=== PATIENT | female | born 1940 | race Caucasian/White ===

== ENCOUNTER 2020-01-08 20:20 | Inpatient (IN) | payer MEDICARE, MEDICAID, SELFPAY ==
--- NOTE | ~2020-01-08 | CT_ITS ---
EXAMINATION: CT abdomen pelvis w con EXAM DATE: 01/08/2020 22:51 INDICATION: Leukocytosis, GI bleed. TECHNIQUE: Spiral CT of the abdomen and pelvis was performed following intravenous injection of 100 m L Omnipaque 350. Axial, coronal and sagittal images were reviewed. The dose-length product (DLP) fo r this examination was 943.58 mGy-cm. The exposure was tailored according to patient size (auto mA e xposure control), and iterative reconstruction (ASIR) was used as additional dose reduction technique . Correlation is made to chest CT 2009. FINDINGS: There is well-circumscribed low-density lobular right breast mass measuring about 3 cm. Thi s was not present on CT from 2010. Has this been previously worked up? The liver, spleen, adrenal gl ands and pancreas are unremarkable. There is gallstone within an otherwise unremarkable gallbladder. No evidence of obstructive biliary disease. Portal and splenic veins are patent. Kidneys enhance symmetrically. Small right nephrolithiasis. There is no hydronephrosis. The uterus is not identifie d and has likely been surgically resected. The bladder is unremarkable. There is no retroperitoneal or pelvic lymphadenopathy. There is moderate scattered arteriosclerotic disease. The appendix is not positively visualized. There is no pericecal inflammatory change to suggest appe ndicitis. There is mild sigmoid colonic diverticulosis. There is no adjacent inflammatory change to suggest diverticulitis. There is a gastrostomy tube in position. There is expected amount of colonic stool. No free intraperitoneal gas. The heart is normal in size. There are no pericardial or pl eural effusions. The lung bases are unremarkable. There are no osteoblastic or osteolytic lesions i dentified. IMPRESSION: 1. Indeterminate lobular right breast mass. This may be benign given the low density and does not ap pear to be enhancing. Differential diagnosis includes hematoma, seroma, fibroadenoma, breast cancer. 2. Right nephrolithiasis. 3. Cholelithiasis. 4. Gastrostomy in position. 5. Colonic diverticulosis. 6. No acute abdominal findings. Reviewed, dictated and finalized at location A. AGING SALES CONSULTANT IMPRESSION: 1. Indeterminate lobular right breast mass. This may be benign given the low d ensity and does not appear to be enhancing. Differential diagnosis includes hem atoma, seroma, fibroadenoma, breast cancer. 2. Right nephrolithiasis. 3. Cholelithiasis. 4. Gastrostomy in position. 5. Colonic diverticulosis. 6. No acute abdominal findings.
--- NOTE | 2020-01-08 20:17 | PC.NURSE ---
Unable to obtain IV access or draw blood for labs after multiple RN attempts. Attempting with ultrasound at this time.
[2020-01-08 20:20] VITALS: BP 134/63; PULSE 99; RESP 19; TEMP 36.5; O2SAT 95
[2020-01-08 20:34] VITALS: RESP 19; O2SAT 95
--- NOTE | 2020-01-08 20:37 | ECG_ITS ---
Measurements Intervals [place] Rate: 100 P: 48 ID: 132 QRS: 28 QRSD: 84 T: 21 QT: 359 QTc: 463 Interpretive Statements SINUS TACHYCARDIA BORDERLINE ST-T WAVE ABNORMALITY- ANT/INF LEADS BASELINE ARTIFACT- I, III, V2 BORDERLINE ECG Electronically Signed On 01-09-2020 7:59:17 APARTMENT MAINTENANCE TECHNICIAN by Alex Bullock D.O.
--- NOTE | 2020-01-08 21:07 | PC.NURSE ---
Unable to obtain IV access or draw blood for labs after multiple RN attempts. Attempting with ultrasound at this time.
[2020-01-08 21:31] VITALS: BP 134/56; PULSE 100; RESP 19; O2SAT 97
[2020-01-08 21:58] LABS: Basophils Absolute Auto 0.1 K/mm3 (0.0-0.1); Basophils Percent Auto 0.3 % (0.2-1.2); Eosinophils Absolute Auto 0.5 K/mm3 (0-0.3); Eosinophils Percent Auto 3.2 % (0-4.4); Immature Granulocyte Absolute 0.12 K/mm3 (0.00-0.031); Immature Granulocyte Percent A 0.8 % (0-0.5); Lymphocytes Absolute Auto 2.28 K/mm3 (0.9-3.2); Lymphocytes Percent Auto 14.5 % (18.3-44.2); Mean Corpuscular HGB Conc 26.9 g/dl (32-36); Mean Corpuscular Hemoglobin 27.9 pg (26-34); Mean Corpuscular Volume 103.6 fl (80-100); Mean Platelet Volume 11.3 fl (7.4-10.4); Monocytes Absolute Auto 0.8 K/mm3 (0.1-0.6); Monocytes Percent Auto 4.8 % (2.6-8.5); Neutrophils Absolute Auto 12.1 K/mm3 (1.3-6.7); Neutrophils Percent Auto 76.4 % (45.5-73.1); Nucleated Red Blood Cells Absolute Auto 0.1 K/mm3 (0.0-0.012); Nucleated Red Blood Cells Perc 0.4 % (0.0-0.2); Platelet Count Result 382 k/mm3 (150-375); Red Blood Count 2.51 M/mm3 (4.2-5.4); Red Cell Distribution Width 14.9 % (11.5-14.5); White Blood Count 15.8 K/mm3 (4.5-10.0)
--- NOTE | 2020-01-08 22:04 | ED.RECABL ---
HPI - Recheck/Abnormal Lab/Rx General Chief Complaint: Recheck/Abnormal Lab/Rx Stated Complaint: abn labs Time Seen by Provider: 01/08/20 22:02 Source: family and RN notes reviewed Limitations: clinical condition History of Present Illness HPI narrative: Pt is an 79 y/o female who presents to the ED, via EMS from [facility], with c/o low hemoglobin that began yesterday. Pt's family was at bedside and provided the information. The [facility] called the pt's family stating her hemoglobin was lower today and yesterday. Pt's family states the NH stated the pt had blood in her G-tube yesterday, but there was no blood today. She states the [facility] staff saw the blood when they tried to flush out her G-tube. Pt's family denies a similar episode. She notes the pt's mental status changes daily and is not consistent. She notes the pt is not coherent throughout the day. She states that the pt's RENAL NURSE shunt will occasionally block up. Pt's family states that the pt goes to [place] [facility] whenever the shunt needs to be fixed. Pt's family denies the pt having melena. Pt's family denies the pt being on any anticoagulant. Pt is taking Lasix. MD complaint: abnormal lab Associated symptoms: none (limited due to pt's clinical condition) Related Data Home Medications Medication Instructions Recorded Confirmed aspirin 81 mg PO DAILY 01/08/20 atorvastatin 80 mg PO DAILY 01/08/20 escitalopram oxalate 10 mg PO DAILY 01/08/20 furosemide 40 mg PO DAILY 01/08/20 Allergies Allergy/AdvReac Type Severity Reaction Status Date / Time No Known Allergies Allergy Verified 01/08/20 23:31 Review of Systems Review of Systems: ROS unobtainable: other (limited due to pt's clinical condition) Gastrointestinal: Gastrointestinal: Denies melena PMFSH Past Medical History Medical History (Updated 01/08/20 @ 23:52 by Dominic Zavala MD) Abnormal gag reflex Partial paralysis Aspiration pneumonia Bilateral artificial lens implant Bilateral cataracts Brain aneurysm With RENAL NURSE shunt in place Brain bleed CVA (cerebral vascular accident) Dementia Depression Gastrostomy tube in place HLD (hyperlipidemia) HTN (hypertension) Incontinence Skin lesion lt nose Subarachnoid hemorrhage Subdural hematoma TBI (traumatic brain injury) Surgical History Surgical History (Updated 01/08/20 @ 22:16 by Victoria Grace) Angle recession of both eyes History of appendectomy 195 History of bilateral cataract extraction 2006 History of hysterectomy History of thyroidectomy History of tonsillectomy RENAL NURSE (ventriculoperitoneal) shunt status Social History Social History (Updated 09/28/19 @ 22:57 by Sayda Coleman) Smoking status: Former smoker Additional smoking assessment comments: Quite smoking years ago Alcohol intake: never Gender identity (if verbalized by the patient): Female Exam Const: General: no acute distress and ill appearing chronically Nutritional Appearance: obese HENMT: Head: normal to inspection Eyes: Conjunctivae: conjunctivae normal Pupils: Equal, round and reactive pupils present EOM: EOMs intact bilaterally Resp: Effort & Inspection: normal respiratory effort Auscultation: clear to auscultation bilaterally Cardio: Rate: regular rate Rhythm: regular rhythm GI: Rectal Exam: Abnormal stool present black stool and heme positive stool Other: G-tube in place. flushing tube produces minimal coffee ground material. Skin: General skin exam: pallor Neuro: Other: No answering orientation questions or following commands Extrem: General: normal to inspection Course Vital Signs Vital signs: Vital Signs Temperature 36.5 C 01/08/20 20:20 Pulse Rate 99 01/08/20 20:20 Respiratory Rate 19 01/08/20 20:20 Blood Pressure 134/63 01/08/20 20:20 Pulse Oximetry 95 01/08/20 20:20 Temperature 36.5 C 01/08/20 20:20 Pulse Rate 101 H 01/08/20 23:16 Respiratory Rate 19 01/08/20 23:16 Blood Pressure 123/53 L 03
[2020-01-08 22:07] LABS: INR 1.1; Prothrombin Time 13.7 Seconds (11.1-14.7)
[2020-01-08 22:08] LABS: Partial Thromboplastin Time 25.4 SECONDS (22.3-36.8)
[2020-01-08 22:12] LABS: Alanine Aminotransferase 25 U/L (4-35); Alkaline Phosphatase 130 U/L (38-126); Aspartate Amino Transferase 30 U/L (14-36); Bilirubin,Total 0.7 mg/dL (0.2-1.3); Blood Urea Nitrogen 41 mg/dL (7-17); Calcium 9.1 mg/dL (8.4-10.2); Carbon Dioxide 29 mmol/L (22-30); Chloride 117 mmol/L (98-107); Estimated CRCL calculation 69 ml/min; Estimated Glomerular Filt Rate > 60; Glucose 148 mg/dL (65-105); Potassium 3.6 mmol/L (3.4-5.0); Sodium 153 mmol/L (137-145)
[2020-01-08 22:22] LABS: Hypochromasia 2+ (NORMAL)
[2020-01-08 22:23] LABS: Anisocytosis 2+ (NORMAL)
[2020-01-08 22:29] LABS: Lactic Acid 3.2 mmol/L (0.7-2.1)
[2020-01-08] MEDS: PANTOPRAZOLE SODIUM IV 40 MG VIAL 80 MG IV PUSH (22:55)
[2020-01-08] MEDS: SODIUM CHLORIDE 0.9% IV 1,000 ML 999 ML IV CONT (22:58)
[2020-01-08 23:16] VITALS: BP 123/53; PULSE 101; RESP 19; O2SAT 95
[2020-01-08 23:46] VITALS: BP 103/44; PULSE 102; RESP 18; O2SAT 95
[2020-01-09] VITALS (21 sets, daily range): BP systolic 91–152; BP diastolic 39–71; PULSE 74–99; RESP 14–25; TEMP 35.7–36.8; O2SAT 92–100; BMI 28.2
[2020-01-09 00:17] LABS: Add Urine Microscopic? YES; Appearance Urine Clear (Clear); Bacteria Urine 1+ /hpf; Bilirubin Urine Negative (Negative); Blood Urine Negative (Negative); Color Urine Yellow (Yellow); Glucose Urine UA 2+ mg/dL (Negative); Ketones Urine Negative (Negative); Leukocyte Esterase Ur Negative LEU/UL (Negative); Mucus Urine Rare /lpf; Nitrate Urine Positive (Negative); Protein Urine Negative (Negative); RBC Urine 21-50 /hpf (0-2); Urobilinogen Urine Negative mg/dL (<2.0); WBC Urine 0-3 /hpf
[2020-01-09 00:18] LABS: Specific Grav Ur 1.057 (1.001-1.035)
--- NOTE | 2020-01-09 00:59 | PC.NURSE ---
NS hung with blood products.
--- NOTE | 2020-01-09 01:41 | ADMGEN ---
This patient, Citlaly Chamberlain, was admitted to [facility] Surg Room 303-01 at 0125. Patient is non-verbal. Patient/family oriented to hospital policies and general routines including ID bracelet, bed and alarms, visiting hours, pain management, procedures, bathroom and other care routines, personal items, smoking policy, room service/diet, and visiting hours. Valuables list has been completed. Information on how to activate the Rapid Response Team has been discussed. Patient/Family are encouraged to report perceived risks to care and to ask questions if they do not understand what they are told or what they should do.
[2020-01-09] MEDS: LACTATED RINGERS 1,000 ML 125 ML IV CONT ×2 (05:57→21:25)
--- NOTE | 2020-01-09 08:15 | WPDGICN ---
Assessment and Plan Additional Plan this is an 79-year-old white female patient mass to see at the request of the emergency room. [facility] was noted to have blood in her gastrostomy tube 2 days ago. She was found to have a very low hemoglobin yesterday and sent to the emergency room. In the emergency room black melenic stools that were Hemoccult positive were identified. Patient has a history of intracerebral bleeding. She also has a history of dementia is unable to give additional history. Past medical history is significant for intracerebral bleeding. She has of MANAGER PLACEMENT shunt. For many years she has had a gastrostomy tube for nutritional support this has been replaced frequently. Endoscopy for replacement was accomplished 1 year ago. Past history is significant for hypertension, dementia, brain aneurysm. History of CVA secondary to intracerebral bleeding. She has a previous gastrostomy tube, previous appendectomy, hysterectomy, thyroidectomy, and MANAGER PLACEMENT shunt. Medications include Lasix, escitalopram, atorvastatin, aspirin, and vitamins, no known drug allergies. Physical exam reveals her to be comfortable at rest. She is anicteric. Evidence of EP shunt is present. Lungs are clear to auscultation and percussion. Heart is without murmur or extra sounds. Abdominal exam bowel sounds are present soft nontender there is a G-tube in the left upper quadrant. Currently it lavage was clear. Extremities are without clubbing cyanosis or edema. in the emergency room stool was found to be Hemoccult positive. Laboratory tests reveal hemoglobin 7.0, hematocrit 26, MCV 103. Protime of 13.7, INR 1.1. BUN of 41, creatinine 0.6, LFTs are unremarkable. Urinalysis with 21-50 red cells per high-powered field. Impression 1. Upper GI bleeding. This appears manifested by a G-tube return. And also black melenic heme-positive stools. I have discussed possibilities with patient's daughter who is power POA. She wishes and endoscopy pre performed to define source of bleeding and expected outcomes. 2. History of hemorrhagic CVA. Distant history of cerebral aneurysm status post cerebral bleeding. 3. He had MANAGER PLACEMENT shunt. 4. Dementia. 5. Hematuria. Etiology for this remains unclear. UTI may need to be excluded. Plan is for IV proton pump inhibitors. Follow hemoglobin and transfuse if necessary. An EGD will be performed. GI Consult Note Consult date/time: 01/09/20 08:15 HPI: Citlaly Chamberlain is a 79 year old female [facility] Past Medical History Medical History (Updated 01/08/20 @ 23:52 by Dominic Zavala MD) Abnormal gag reflex Partial paralysis Aspiration pneumonia Bilateral artificial lens implant Bilateral cataracts Brain aneurysm With MANAGER PLACEMENT shunt in place Brain bleed CVA (cerebral vascular accident) Dementia Depression Gastrostomy tube in place HLD (hyperlipidemia) HTN (hypertension) Incontinence Skin lesion lt nose Subarachnoid hemorrhage Subdural hematoma TBI (traumatic brain injury) Surgical History Surgical History (Updated 01/08/20 @ 22:16 by Victoria Grace) Angle recession of both eyes History of appendectomy 1953 History of bilateral cataract extraction 2006 History of hysterectomy History of thyroidectomy History of tonsillectomy MANAGER PLACEMENT (ventriculoperitoneal) shunt status Social History Social History (Updated 09/28/19 @ 22:57 by Sayda Coleman) Smoking status: Former smoker Additional smoking assessment comments: Quite smoking years ago Alcohol intake: never Substance use: unknown Gender identity (if verbalized by the patient): Female Spiritual care concerns: No Agree to blood products: Yes Meds Home Medications and Allergies Home Medications Medication Instructions Recorded Confirmed Type aspirin 81 mg FEEDING TUBE DAILY 01/08/20 01/09/20 History atorvastatin 80 mg FEEDING TUBE DAILY 01/08/20 01/09/20 History esci
[2020-01-09] MEDS: PANTOPRAZOLE SODIUM IV 40 MG VIAL IV PUSH (08:51)
--- NOTE | 2020-01-09 09:05 | WPDANESEPPF ---
Anes - Initial Pre Proc Eval Procedure: Operation Date: 01/09/20 10:30 Proposed Procedures p Esophagogastroduodenoscopy - Pietro Osman MD Date/Time: 01/09/20 09:05 Pre Op Diagnosis: upper gi bleed anemia Patient Data Age: 79 Gender: F Height: 1.7 m Weight: 81.7 kg Last Vital Signs Temp 35.7 C L 01/09/20 06:00 Pulse 81 01/09/20 06:00 Resp 18 01/09/20 06:00 BP 151/64 H 01/09/20 06:00 Pulse Ox 98 01/09/20 06:00 Allergies Allergy/AdvReac Type Severity Reaction Status Date / Time No Known Allergies Allergy Verified 01/08/20 23:31 Home Medications Medication Instructions Recorded Confirmed Type aspirin 81 mg FEEDING TUBE DAILY 01/08/20 01/09/20 History atorvastatin 80 mg FEEDING TUBE DAILY 01/08/20 01/09/20 History escitalopram oxalate 10 mg FEEDING TUBE DAILY 01/08/20 01/09/20 History furosemide 40 mg FEEDING TUBE DAILY 01/08/20 01/09/20 History multivitamin with minerals 15 ml FEEDING TUBE DAILY 01/09/20 01/09/20 History Laboratory Tests 01/08/20 01/08/20 01/08/20 21:51 21:52 21:52 WBC 15.8 K/mm3 H K/mm3 (4.5-10.0) RBC 2.51 M/mm3 L M/mm3 (4.2-5.4) Hgb 7.0 g/dL L g/dL (12.0-15.0) Hct 26.0 % L % (37.0-47.0) MCV 103.6 fl H fl (80-100) MCH 27.9 pg pg (26-34) MCHC 26.9 g/dl L g/dl (32-36) RDW 14.9 % H % (11.5-14.5) Plt Count 382 k/mm3 H k/mm3 (150-375) MPV 11.3 fl H fl (7.4-10.4) Immature Gran % (Auto) 0.8 % H % (0-0.5) Neut % (Auto) 76.4 % H % (45.5-73.1) Lymph % (Auto) 14.5 % L % (18.3-44.2) [place] % (Auto) 4.8 % % (2.6-8.5) Eos % (Auto) 3.2 % % (0-4.4) Baso % (Auto) 0.3 % % (0.2-1.2) Lymph # (Auto) 2.28 K/mm3 K/mm3 (0.9-3.2) [place] # (Auto) 0.8 K/mm3 H K/mm3 (0.1-0.6) Eos # (Auto) 0.5 K/mm3 H K/mm3 (0-0.3) Baso # (Auto) 0.1 K/mm3 K/mm3 (0.0-0.1) Abs Immat Gran (auto) 0.12 K/mm3 H K/mm3 (0.00-0.031) Absolute Neuts (auto) 12.1 K/mm3 H K/mm3 (1.3-6.7) Absolute Nucleated RBC 0.1 K/mm3 H K/mm3 (0.0-0.012) Nucleated RBC % 0.4 % H % (0.0-0.2) Platelet Estimate Slightly increased (Adequate) Hypochromasia 2+ (NORMAL) Anisocytosis 2+ (NORMAL) PT 13.7 Seconds Seconds (11.1-14.7) INR 1.1 APTT 25.4 SECONDS SECONDS (22.3-36.8) Sodium 153 mmol/L H mmol/L (137-145) Potassium 3.6 mmol/L mmol/L (3.4-5.0) Chloride 117 mmol/L H mmol/L (98-107) Carbon Dioxide 29 mmol/L mmol/L (22-30) BUN 41 mg/dL H mg/dL (7-17) Creatinine 0.60 mg/dL L mg/dL (0.7-1.0) Estim Creat Clear Calc 69 ml/min ml/min Estimated GFR > 60 (59 - ) Glucose 148 mg/dL H mg/dL (65-105) Lactic Acid Calcium 9.1 mg/dL mg/dL (8.4-10.2) Total Bilirubin 0.7 mg/dL mg/dL (0.2-1.3) AST 30 U/L U/L (14-36) ALT 25 U/L U/L (4-35) Alkaline Phosphatase 130 U/L H U/L (38-126) Total Protein 7.0 g/dL g/dL (6.3-8.2) Albumin 4.0 g/dL g/dL (3.5-5.1) Urine Color Urine Appearance Urine pH Ur Specific [place] Urine Protein Urine Glucose (UA) Urine Ketones Ur Blood (Man) Urine Nitrate Urine Bilirubin Urine Urobilinogen Leukocyte Esterase Rfl Urine RBC Urine WBC Urine Bacteria Urine Mucus Blood Type Antibody Screen Crossmatch 01/08/20 01/08/20 01/08/20 21:52 22:13 23:36 WBC RBC Hgb Hct MCV MCH MCHC
--- NOTE | 2020-01-09 09:39 | PM.IMHP ---
H&P: HPI History of Present Illness Chief complaint: upper gi bleed anemia Narrative: Date of service: 01/09/2020 Citlaly Chamberlain is a 79 year old female with a past medical history significant for brain aneurysm s/p MANUFACTURING ENGINEERING TECHNOLOGIST shunt in 1998, subdural hematoma, TBI, CVA, dementia, HTN, HLD, and G-tube in place who presented to the emergency department on 01/08/2020 from [facility] via EMS after staff at [facility] called the patients family due to low hemoglobin and an episode of blood in her G-tube on 01/07/2020. The patient is non-verbal. I spoke with her daughter, Lucille, on the phone who tells me the patients mental status can fluctuate greatly from day to day. Her mother is non-ambulatory, but is able to transfer from bed to wheelchair with staff assistance. She reports her mom has had a G-tube since 2016 due to dysphagia following hemorrhagic stroke. She takes nothing by mouth. She states that the patient will occasionally mumble although is difficult to understand. She usually is able to indicate if she is experiencing pain. She reports the patient does not see a neurologist regularly, but if she experiences problems with her MANUFACTURING ENGINEERING TECHNOLOGIST shunt, they seek care at [facility]. She does not believe there are any current issues with the shunt. She is incontinent of stool and urine. At time of my visit, the patient was being prepared for transfer to undergo EGD with Dr. Osman. The patient was admitted to the hospitalist service on 01/08/2020 and supervising physician is Dr. Sandra. Review of Systems Review of Systems: ROS unobtainable: unobtainable due to mental condition [facility] Past Medical History Medical History Abnormal gag reflex Partial paralysis Aspiration pneumonia Bilateral artificial lens implant Bilateral cataracts Brain aneurysm With MANUFACTURING ENGINEERING TECHNOLOGIST shunt in place Brain bleed CVA (cerebral vascular accident) Dementia Depression Gastrostomy tube in place HLD (hyperlipidemia) HTN (hypertension) Incontinence Skin lesion lt nose Subarachnoid hemorrhage Subdural hematoma TBI (traumatic brain injury) Surgical History Surgical History (Updated 01/09/20 @ 14:08 by Corry Uribe PA-C) Angle recession of both eyes History of appendectomy 1953 History of bilateral cataract extraction 2006 History of hysterectomy History of tonsillectomy MANUFACTURING ENGINEERING TECHNOLOGIST (ventriculoperitoneal) shunt status Family History Family History (Updated 01/09/20 @ 14:09 by Corry Uribe PA-C) Mother Dementia Father No problems noted. Social History Social History (Updated 01/09/20 @ 14:10 by Corry Uribe PA-C) Social History: Ms. Chamberlain is a resident of [facility]. Her daughter Lucille is her surrogate decision maker. She is a DNR. Smoking status: Former smoker Tobacco type: cigarettes Additional smoking assessment comments: Quit smoking years ago Alcohol intake: never Substance use: unknown Living arrangements: residential Gender identity (if verbalized by the patient): Female Spiritual care concerns: No Agree to blood products: Yes Meds Home Medications and Allergies Home Medications Medication Instructions Recorded Confirmed Type aspirin 81 mg FEEDING TUBE DAILY 01/08/20 01/09/20 History atorvastatin 80 mg FEEDING TUBE DAILY 01/08/20 01/09/20 History escitalopram oxalate 10 mg FEEDING TUBE DAILY 01/08/20 01/09/20 History furosemide 40 mg FEEDING TUBE DAILY 01/08/20 01/09/20 History multivitamin with minerals 15 ml FEEDING TUBE DAILY 01/09/20 01/09/20 History Allergies Allergy/AdvReac Type Severity Reaction Status Date / Time No Known Allergies Allergy Verified 01/08/20 23:31 Vital Signs Vital Signs - 24 hr 01/08/20 20:20 01/08/20 20:34 01/08/20 21:31 Temperature 97.7 F Pulse Rate 99 100 Respiratory Rate 19 19 19 Blood Pressure 134/63 134/56 L Pulse Oximetry 95 95 97 01/08/20 23:16 01/08/20 23:46 01/08
[2020-01-09 09:55] LABS: Blood Urea Nitrogen 35 mg/dL (7-17); Calcium 8.3 mg/dL (8.4-10.2); Carbon Dioxide 23 mmol/L (22-30); Chloride 122 mmol/L (98-107); Estimated CRCL calculation 69 ml/min; Estimated Glomerular Filt Rate > 60; Glucose 137 mg/dL (65-105); Sodium 151 mmol/L (137-145)
[2020-01-09] MEDS: LACTATED RINGERS 1,000 ML 150 ML IV CONT (09:55)
--- NOTE | 2020-01-09 09:56 | PC.NURSE ---
To [facility] lab @ [id number]
[2020-01-09 10:21] LABS: Potassium 4.1 mmol/L (3.4-5.0)
[2020-01-09 12:41] LABS: Basophils Percent Auto 0.3 % (0.2-1.2); Eosinophils Absolute Auto 0.4 K/mm3 (0-0.3); Eosinophils Percent Auto 3.5 % (0-4.4); Hemoglobin 9.5 g/dL (12.0-15.0); Immature Granulocyte Absolute 0.06 K/mm3 (0.00-0.031); Immature Granulocyte Percent A 0.5 % (0-0.5); Lymphocytes Absolute Auto 2.32 K/mm3 (0.9-3.2); Lymphocytes Percent Auto 19.5 % (18.3-44.2); Mean Corpuscular HGB Conc 29.7 g/dl (32-36); Mean Corpuscular Hemoglobin 27.7 pg (26-34); Mean Corpuscular Volume 93.3 fl (80-100); Mean Platelet Volume 11.1 fl (7.4-10.4); Monocytes Absolute Auto 0.6 K/mm3 (0.1-0.6); Monocytes Percent Auto 5.2 % (2.6-8.5); Neutrophils Absolute Auto 8.4 K/mm3 (1.3-6.7); Nucleated Red Blood Cells Perc 0.3 % (0.0-0.2); Platelet Count Result 281 k/mm3 (150-375); Red Blood Count 3.43 M/mm3 (4.2-5.4); Red Cell Distribution Width 18.6 % (11.5-14.5); White Blood Count 11.9 K/mm3 (4.5-10.0)
[2020-01-09 13:07] LABS: Anisocytosis 1+ (NORMAL); Platelet Estimate Adequate (Adequate)
--- NOTE | 2020-01-09 14:08 | PC.NURSE ---
Returned from GI lab @[id number]
--- NOTE | 2020-01-09 14:28 | PCNSR ---
On 01/09/20, the student, Janice George, provided care and completed [facility] documentation on this patient. I have reviewed the student's documentation and agree with the findings.
[2020-01-09 17:25] LABS: Lactic Acid 2.2 mmol/L (0.7-2.1)
[2020-01-09 17:28] LABS: Blood Urea Nitrogen 42 mg/dL (7-17); Calcium 8.3 mg/dL (8.4-10.2); Carbon Dioxide 22 mmol/L (22-30); Chloride 124 mmol/L (98-107); Estimated CRCL calculation 81 ml/min; Estimated Glomerular Filt Rate > 60; Glucose 148 mg/dL (65-105); Potassium 4.3 mmol/L (3.4-5.0); Sodium 150 mmol/L (137-145)
[2020-01-10] MEDS: LACTATED RINGERS 1,000 ML 125 ML IV CONT (05:34)
[2020-01-10 06:00] VITALS: BP 146/67; PULSE 90; RESP 20; TEMP 37.1; O2SAT 94
[2020-01-10 06:33] LABS: Basophils Percent Auto 0.2 % (0.2-1.2); Eosinophils Absolute Auto 0.4 K/mm3 (0-0.3); Eosinophils Percent Auto 3.3 % (0-4.4); Hematocrit 28.2 % (37.0-47.0); Hemoglobin 8.2 g/dL (12.0-15.0); Immature Granulocyte Absolute 0.06 K/mm3 (0.00-0.031); Immature Granulocyte Percent A 0.5 % (0-0.5); Immature Platelet Fraction Pct 4.7 % (0.9-11.2); Lymphocytes Absolute Auto 1.85 K/mm3 (0.9-3.2); Lymphocytes Percent Auto 16.9 % (18.3-44.2); Mean Corpuscular HGB Conc 29.1 g/dl (32-36); Mean Corpuscular Hemoglobin 27.2 pg (26-34); Mean Corpuscular Volume 93.7 fl (80-100); Mean Platelet Volume 11.7 fl (7.4-10.4); Monocytes Absolute Auto 0.6 K/mm3 (0.1-0.6); Monocytes Percent Auto 5.8 % (2.6-8.5); Neutrophils Percent Auto 73.3 % (45.5-73.1); Platelet Count Result 213 k/mm3 (150-375); Red Blood Count 3.01 M/mm3 (4.2-5.4)
--- NOTE | 2020-01-10 07:44 | WPDGIPROGNO ---
Progress Note: A&P Additional Plan Patient unchanged this morning. Offers no complaints. Physical exam abdomen benign. Soft and nontender. G tube in left upper quadrant. Functioning well. Appears well healed. Impression 1. Gastric ulcer. Identified by endoscopy yesterday. No longer bleeding. But this was the source of recent upper GI blood loss. 2. PEG tube. Patient requires tube feedings for nutritional support these will be restarted. 3. History of CVA. Hemorrhagic stroke. With history of AVM. History of PHARMACY INFORMATICS SPECIALIST shunt. 4. Dementia. Plan is for tube feedings to resume 60cc of Jevity continuously. Proton pump inhibitor will be given via the G-tube. Lansoprazole 30cc p.o. daily. Patient should avoid nonsteroidal anti-inflammatory agents. Discharge to halfway today anticipated. Subjective Date/time seen: 01/10/20 07:44 Objective Data Vital Signs Vital Signs: Vital Signs - 24 hr 01/09/20 09:56 01/09/20 10:29 01/09/20 10:39 Temperature 36.4 C Pulse Rate 86 80 74 Respiratory Rate 16 18 18 Blood Pressure 143/59 H 118/59 L 125/67 Pulse Oximetry 95 95 95 01/09/20 10:49 01/09/20 11:31 01/09/20 14:00 Temperature 36.7 C 36.7 C Pulse Rate 80 85 85 Respiratory Rate 18 18 18 Blood Pressure 137/70 142/64 H 142/64 H Pulse Oximetry 95 95 99 01/09/20 22:00 01/10/20 06:00 Temperature 36.8 C 37.1 C Pulse Rate 94 90 Respiratory Rate 20 20 Blood Pressure 129/62 146/67 H Pulse Oximetry 95 94 Intake/Output Intake/Output: Intake & Output 01/07/20 01/08/20 01/09/20 01/10/20 23:59 23:59 23:59 23:59 Intake Total 1000 1800 1787 Output Total 150 Balance 850 1800 1787 Meds/Results Medications: Active Medications Generic Name Dose Route Start Last Admin Trade Name Freq PRN Reason Stop Dose Admin Lactated Ringer's 1,000 mls @ 75 mls/hr 01/08/20 23:55 01/10/20 05:34 Lr - Lactated Ringers Iv IV CONT 125 mls/hr .[id number] VISHAL Administration Lansoprazole 30 mg 01/10/20 09:00 Prevacid Susp [facility] [facility] Results: ITS Impressions Abdomen/Pelvis CT 01/08/20 22:54 IMPRESSION: 1. Indeterminate lobular right breast mass. This may be benign given the low density and does not appear to be enhancing. Differential diagnosis includes hematoma, seroma, fibroadenoma, breast cancer. 2. Right nephrolithiasis. 3. Cholelithiasis. 4. Gastrostomy in position. 5. Colonic diverticulosis. 6. No acute abdominal findings. Labs Labs: Laboratory Results - last 24 hr 01/09/20 01/09/20 01/09/20 09:27 12:29 17:07 WBC 11.9 H RBC 3.43 L Hgb 9.5 L Hct 32.0 L MCV 93.3 D MCH 27.7 MCHC 29.7 L RDW 18.6 H Plt Count 281 MPV 11.1 H Immature Gran % (Auto) 0.5 Neut % (Auto) 71.0 Lymph % (Auto) 19.5 [place] % (Auto) 5.2 Eos % (Auto) 3.5 Baso % (Auto) 0.3 Lymph # (Auto) 2.32 [place] # (Auto) 0.6 Eos # (Auto) 0.4 H Baso # (Auto) 0.0 Abs Immat Gran (auto) 0.06 H Absolute Neuts (auto) 8.4 H Absolute Nucleated RBC 0.0 Nucleated RBC % 0.3 H Platelet Estimate Adequate % Immature Plt Fraction Anisocytosis 1+ Sodium 151 H Potassium 4.1 Chloride 122 H Carbon Dioxide 23 BUN 35 H Creatinine 0.60 L Estim Creat Clear Calc 69 Estimated GFR > 60 Glucose 137 H Lactic Acid 2.2 H Calcium 8.3 L 01/09/20 01/10/20 17:07 06:04 WBC 11.0 H RBC 3.01 L Hgb 8.2 L Hct 28.2 L MCV 93.7 MCH 27.2 MCHC 29.1 L RDW 18.0 H Plt Count 213 MPV 11.7 H Immature Gran % (Auto) 0.5 Neut % (Auto) 73.3 H Lymph % (Auto) 16.9 L [place] % (Auto) 5.8 Eos % (Auto) 3.3 Baso % (Auto) 0.2 Lymph # (Auto) 1.85 [place] # (Auto) 0.6 Eos # (Auto) 0.4 H Baso # (Auto) 0.0 Abs Immat Gran (auto) 0.06 H Absolute Neuts (auto) 8.0 H Absolute Nucleated RBC 0.0 Nucleated RBC % 0.0 Platelet Estimate % Immature Plt Fraction 4.7 Anisocytosis
--- NOTE | 2020-01-10 08:24 | WPDANESPN ---
Anes - Prog Note Post-Op Date/Time: 01/10/20 08:24 Cardiovascular status: normal Respiratory status: normal Airway patency: baseline Mental status: baseline Post-Op hydration status: normal Vital Signs: Last Vital Signs Temp 37.1 C 01/10/20 06:00 Pulse 90 01/10/20 06:00 Resp 20 01/10/20 06:00 BP 146/67 H 01/10/20 06:00 Pulse Ox 94 01/10/20 06:00 I/O: Intake & Output 01/09/20 01/10/20 01/10/20 23:59 07:59 15:59 Intake Total 1000 1787 Balance 1000 1787 Laboratory Tests 01/10/20 06:04 01/09/20 01/09/20 01/09/20 09:27 12:29 17:07 WBC 11.9 H RBC 3.43 L Hgb 9.5 L Hct 32.0 L MCV 93.3 D MCH 27.7 MCHC 29.7 L RDW 18.6 H Plt Count 281 MPV 11.1 H Immature Gran % (Auto) 0.5 Neut % (Auto) 71.0 Lymph % (Auto) 19.5 Garrett % (Auto) 5.2 Eos % (Auto) 3.5 Baso % (Auto) 0.3 Lymph # (Auto) 2.32 Garrett # (Auto) 0.6 Eos # (Auto) 0.4 H Baso # (Auto) 0.0 Abs Immat Gran (auto) 0.06 H Absolute Neuts (auto) 8.4 H Absolute Nucleated RBC 0.0 Nucleated RBC % 0.3 H Platelet Estimate Adequate % Immature Plt Fraction Anisocytosis 1+ Sodium 151 H Potassium 4.1 Chloride 122 H Carbon Dioxide 23 BUN 35 H Creatinine 0.60 L Estim Creat Clear Calc 69 Estimated GFR > 60 Glucose 137 H Lactic Acid 2.2 H Calcium 8.3 L Total Bilirubin AST ALT Alkaline Phosphatase Total Protein Albumin 01/09/20 01/10/20 01/10/20 17:07 06:04 06:04 WBC 11.0 H RBC 3.01 L Hgb 8.2 L Hct 28.2 L MCV 93.7 MCH 27.2 MCHC 29.1 L RDW 18.0 H Plt Count 213 MPV 11.7 H Immature Gran % (Auto) 0.5 Neut % (Auto) 73.3 H Lymph % (Auto) 16.9 L Garrett % (Auto) 5.8 Eos % (Auto) 3.3 Baso % (Auto) 0.2 Lymph # (Auto) 1.85 Garrett # (Auto) 0.6 Eos # (Auto) 0.4 H Baso # (Auto) 0.0 Abs Immat Gran (auto) 0.06 H Absolute Neuts (auto) 8.0 H Absolute Nucleated RBC 0.0 Nucleated RBC % 0.0 Platelet Estimate % Immature Plt Fraction 4.7 Anisocytosis Sodium 150 H Pending Potassium 4.3 Pending Chloride 124 H Pending Carbon Dioxide 22 Pending BUN 42 H Pending Creatinine 0.50 L Pending Estim Creat Clear Calc 81 Pending Estimated GFR > 60 Pending Glucose 148 H Pending Lactic Acid Calcium 8.3 L Pending Total Bilirubin Pending AST Pending ALT Pending Alkaline Phosphatase Pending Total Protein Pending Albumin Pending Post-procedural complaints: none Patient Feedback: Patient satisfied with anesthetic care.
[2020-01-10 09:04] LABS: Alanine Aminotransferase 21 U/L (4-35); Albumin Level 3.1 g/dL (3.5-5.1); Alkaline Phosphatase 101 U/L (38-126); Aspartate Amino Transferase 31 U/L (14-36); Bilirubin,Total 0.5 mg/dL (0.2-1.3); Blood Urea Nitrogen 29 mg/dL (7-17); Calcium 8.3 mg/dL (8.4-10.2); Carbon Dioxide 25 mmol/L (22-30); Chloride 121 mmol/L (98-107); Estimated CRCL calculation 81 ml/min; Estimated Glomerular Filt Rate > 60; Glucose 138 mg/dL (65-105); Potassium 3.7 mmol/L (3.4-5.0); Sodium 148 mmol/L (137-145)
[2020-01-10] MEDS: LANSOPRAZOLE ORAL SUSP 30 MG/10 ML ORAL.SUSP FEED TUBE (11:21)
--- NOTE | 2020-01-10 14:15 | PM.IMPN ---
Progress Note: A&P Assessment and Plan (1) Acute upper GI bleeding: Code(s): K92.2 - Gastrointestinal hemorrhage, unspecified Status: Acute Assessment and Plan: Patient found to have blood in G-tube on 01/06. Also noted to have an episode of melena in the ED which was hemoccult positive. Dr. Osman was consulted and EGD performed on 01/09/2020 revealed single cratered acute benign appearing ulcer with no signs of bleeding. Dr. Osman does believe this ulcer was the source of acute bleeding at presentation. - Continue Lansaprazole 30 cc daily via G-tube per Dr. Osman. - Avoid NSAIDs (2) Anemia: Qualifiers: Anemia type: other cause Other causes of anemia: acute posthemorrhagic Qualified Code(s): D62 - Acute posthemorrhagic anemia Code(s): D64.9 - Anemia, unspecified Status: Acute Assessment and Plan: Patient found to have low Hgb at [facility] and was hemoccult positive, likely due to GI bleed. At presentation, Hgb was 7.0. Per chart review, it appears she was given 2 units of leukocyte reduced RBC on 01/08/2020 in ED. Hgb 9.5 after EGD, however this morning declined to 8.2. Vitals are stable. - Continue to monitor H&H Q6H. Plan for discharge if Hgb remains stable. - Transfuse prn with transfusion threshold of 7.0 (3) Dehydration: Code(s): E86.0 - Dehydration Status: Acute Assessment and Plan: Urine specific gravity is elevated at 1.057. Initial lactic acid is elevated 3.2, which may be explained by dehydration or hypvolemia. Additionally, patient was hypernatremic at 153 on admission which has been declining at a steady rate. Patient received IV Lactated Ringers bolus in the ED. Repeat lactic acid on 01/09/2020 decreased to 2.2. Vitals stable. - Continue to monitor BMP and lactic acid. - Order magnesium level - Continue gentle fluid hydration, paying close attention to sodium level to ensure decrease is not occurring too rapidly (4) Brain aneurysm: Code(s): I67.1 - Cerebral aneurysm, nonruptured Status: Acute Assessment and Plan: Patient had a EARLY BREASTFEEDING CARE SPECIALIST shunt placed in 1998 after a brain aneurysm. Additionally, patient has had other brain bleeds although details are unclear. EARLY BREASTFEEDING CARE SPECIALIST shunt is intermittently managed at [facility] when problems arise. - Continue to monitor (5) Gastrostomy tube in place: Code(s): Z93.1 - Gastrostomy status Status: Acute Assessment and Plan: Per patients daughter, following a brain bleed in 2017, patient experienced dysphagia and partial paralysis. She became unable to tolerate oral intake and a G-tube was placed in 2017. Patient receives all feedings and nutrients through G-tube with nothing by mouth. - All medications per G-tube - Dietary consult to manage G-tube feedings with any recommendations appreciated. (6) HTN (hypertension): Qualifiers: Hypertension type: unspecified Qualified Code(s): I10 - Essential (primary) hypertension Code(s): I10 - Essential (primary) hypertension Status: Acute Assessment and Plan: Blood pressure evaluated today and stable at 146/67. - Continue to monitor blood pressures. (7) Eye discharge: Code(s): H57.89 - Other specified disorders of eye and adnexa Status: Acute Assessment and Plan: Patient experiencing green mucopurulent discharge of left eye. The eye is not matted shut. Discharge wipes off easily. There is no erythema or conjunctival injection. - Apply warm compresses to eye. Subjective Date/time seen: 01/10/20 14:15 Interval history: Date of service: 01/10/2020 Ms. Chamberlain is seen with her daughter, Lucille, today. She is nonverbal and asleep. Her daughter reports that she has not indicated that she has been in any pain. We talked extensively about the patients hemoglobin levels and that, in the event her Hgb level continues to decrease, we may consider further workup for anemia including colonoscopy. Lucille
[2020-01-10 14:42] LABS: Hematocrit 27.1 % (37.0-47.0); Hemoglobin 8.2 g/dL (12.0-15.0)
[2020-01-10 14:44] VITALS: BP 142/68; PULSE 93; RESP 18; TEMP 36.9; O2SAT 95
[2020-01-10 17:59] LABS: Hematocrit 25.9 % (37.0-47.0); Hemoglobin 7.9 g/dL (12.0-15.0)
[2020-01-10 22:41] VITALS: BP 154/73; PULSE 101; RESP 20; TEMP 37.3; O2SAT 97
[2020-01-11 00:44] LABS: Hematocrit 27.5 % (37.0-47.0); Hemoglobin 8.2 g/dL (12.0-15.0)
--- NOTE | 2020-01-11 01:37 | PC.NURSE ---
Daylight Savings Time For Daylight Savings Time Ending in the Fall - Clocks are moved back. For Daylight Savings Time Beginning in the Spring - Clocks are moved ahead. For [facility], the time of change occurs at 0200 hrs. Time is taken from the senior sql server database developer. This entry on the patient's chart recognizes the change in time reflected during documentation. Example: 2 entries for vital signs may be charted for 0200 hrs.
[2020-01-11 06:05] VITALS: BP 142/74; PULSE 100; RESP 20; TEMP 36.9; O2SAT 96
[2020-01-11 06:29] LABS: Basophils Percent Auto 0.2 % (0.2-1.2); Eosinophils Absolute Auto 0.4 K/mm3 (0-0.3); Eosinophils Percent Auto 4.5 % (0-4.4); Hematocrit 28.6 % (37.0-47.0); Hemoglobin 8.2 g/dL (12.0-15.0); Immature Granulocyte Absolute 0.04 K/mm3 (0.00-0.031); Immature Granulocyte Percent A 0.4 % (0-0.5); Lymphocytes Absolute Auto 1.65 K/mm3 (0.9-3.2); Lymphocytes Percent Auto 18.2 % (18.3-44.2); Mean Corpuscular HGB Conc 28.7 g/dl (32-36); Mean Corpuscular Hemoglobin 27.9 pg (26-34); Mean Corpuscular Volume 97.3 fl (80-100); Mean Platelet Volume 11.2 fl (7.4-10.4); Monocytes Absolute Auto 0.5 K/mm3 (0.1-0.6); Neutrophils Absolute Auto 6.4 K/mm3 (1.3-6.7); Neutrophils Percent Auto 70.7 % (45.5-73.1); Platelet Count Result 208 k/mm3 (150-375); Red Blood Count 2.94 M/mm3 (4.2-5.4); Red Cell Distribution Width 16.7 % (11.5-14.5); White Blood Count 9.1 K/mm3 (4.5-10.0)
[2020-01-11 07:02] LABS: Alanine Aminotransferase 21 U/L (4-35); Alkaline Phosphatase 103 U/L (38-126); Aspartate Amino Transferase 34 U/L (14-36); Bilirubin,Total 0.4 mg/dL (0.2-1.3); Blood Urea Nitrogen 18 mg/dL (7-17); Calcium 8.2 mg/dL (8.4-10.2); Carbon Dioxide 20 mmol/L (22-30); Chloride 120 mmol/L (98-107); Estimated CRCL calculation 81 ml/min; Estimated Glomerular Filt Rate > 60; Glucose 207 mg/dL (65-105); Magnesium 2.4 mg/dL (1.6-2.3); Potassium 3.8 mmol/L (3.4-5.0); Sodium 147 mmol/L (137-145)
[2020-01-11 09:09] LABS: Lactic Acid 2.3 mmol/L (0.7-2.1)
[2020-01-11] MEDS: LANSOPRAZOLE ORAL SUSP 30 MG/10 ML ORAL.SUSP FEED TUBE (09:54)
--- NOTE | 2020-01-12 08:44 | PM.DS ---
DS: Diagnosis Admitting Diagnosis Admitting Diagnosis: Gastrointestinal hemorrhage, unspecified Discharge Diagnosis (1) Acute upper GI bleeding: Code(s): K92.2 - Gastrointestinal hemorrhage, unspecified Status: Acute (2) Anemia: Qualifiers: Anemia type: other cause Other causes of anemia: acute posthemorrhagic Qualified Code(s): D62 - Acute posthemorrhagic anemia Code(s): D64.9 - Anemia, unspecified Status: Acute (3) Dehydration: Code(s): E86.0 - Dehydration Status: Acute (4) Brain aneurysm: Code(s): I67.1 - Cerebral aneurysm, nonruptured Status: Acute Assessment and Plan: Patient had a PASSENGER SERVICE REPRESENTATIVE shunt placed in 1998 after a brain aneurysm. (5) Gastrostomy tube in place: Code(s): Z93.1 - Gastrostomy status Status: Acute (6) HTN (hypertension): Qualifiers: Hypertension type: unspecified Qualified Code(s): I10 - Essential (primary) hypertension Code(s): I10 - Essential (primary) hypertension Status: Acute Assessment and Plan: Blood pressure remained stable. Blood pressure 142/74 at time of discharge. (7) Eye discharge: Code(s): H57.89 - Other specified disorders of eye and adnexa Status: Acute Assessment and Plan: She was experiencing green mucopurulent discharge of left eye on 01/09. The eye was not matted shut and without erythema or conjunctival injection. Warm compresses were applied. No eye discharge on day of hospital discharge. DS: Summary Hospital Course Reason for hospitalization: GI bleed Hospital Course: Date of discharge: 01/11/2020 Date of admission: 01/08/2020 Citlaly Chamberlain is a 79 year old female with a past medical history significant for brain aneurysm s/p PASSENGER SERVICE REPRESENTATIVE shunt in 1998, subdural hematoma, TBI, CVA, dementia, HTN, HLD, and halfway G-tube in place who presented to the emergency department on 01/08/2020 from [facility] via EMS after staff at [place] called the patients family due to low hemoglobin and an episode of blood in her G-tube on 01/07/2020. In the emergency department, she was found to have melena and was hemoccult positive. She was profoundly anemic with hemoglobin of 7.0 at presentation. She was transfused 2 units of leukocyte reduced RBC. A consult was placed to grain thresher, Dr. Osman. He completed an EGD on 01/09/20 which revealed a signle cratered acute benign appearing ulcer with no signs of bleeding. He reported this ulcer was the source for acute bleeding at presentation. He initiated the patient on lansaprazole 30 cc daily per G-tube and she was instructed to avoid NSAIDs. Her hemoglobin stabilized to 9.5 after EGD. Hemoglobin was trended every 6 hours for an additional 24 hours after EGD and remained stable at 8.2. She was determined to be stable for discharge with no need for follow up EGD, per Dr. Osman. She remained asymptomatic and vitals were stable. At presentation, she did appear volume depleted which resulted in electrolyte abnormalities. She was hypernatremic and received fluid replacement with lactated ringers, which allowed her sodium to decrease slowly. Patient has an extensive history of neurologic issues, including brain aneurysm and prior brain bleeds. She has a PASSENGER SERVICE REPRESENTATIVE shunt and a chronic G-tube in place as she is unable to swallow and takes nothing by mouth. She is mostly non-verbal. The patients daughter, her surrogate decision maker, expressed concerns about her quality of life, and care coordination was consulted to discuss Hospice care. She was provided a list of agencies and will consider. She reported she did not want additional further extensive workup for the patient. Afte discussing worrisome signs and symptoms for which to return, the patient was discharged in hemodynamically stable condition on the afternoon of 01/11/2020 with instructions to repeat H&H and follow up with her PCP in one week. Time Spent with Patient Time
== END 2020-01-11 14:36 | DRG 378 ==
LOC: ANHED 01-09 00:01 → ANH3MEDSUR 01-09 00:44
PROVIDERS: General Practice; Internal Medicine Gastroenterology; Physician Assistant; Admitting Provider Internal Medicine; Emergency Provider Emergency Medicine; PCP Family Medicine; Visit Provider Family Medicine
PROC: 0DJ08ZZ Inspection of Upper Intestinal Tract, Via Natural or Artificial Opening Endoscopic (ICD-10-PCS; CPT 43235; principal; 2020-01-09 10:30)
DX: K25.0 Acute gastric ulcer with hemorrhage (principal); D62 Acute posthemorrhagic anemia; Z87.820 Personal history of traumatic brain injury; Z98.2 Presence of cerebrospinal fluid drainage device; Z86.73 Personal history of transient ischemic attack (TIA), and cerebral infarction without residual deficits; F03.90 Unspecified dementia, unspecified severity, without behavioral disturbance, psychotic disturbance, mood disturbance, and anxiety; I10 Essential (primary) hypertension; E78.5 Hyperlipidemia, unspecified; Z93.1 Gastrostomy status; Z96.1 Presence of intraocular lens; Z98.41 Cataract extraction status, right eye; Z98.42 Cataract extraction status, left eye; F32.9 Major depressive disorder, single episode, unspecified; R32 Unspecified urinary incontinence; Z87.891 Personal history of nicotine dependence; E86.0 Dehydration; R13.10 Dysphagia, unspecified; H57.89 Other specified disorders of eye and adnexa
CPT/HCPCS: 36415; 36430; 51701; 74177; 80048; 80053; 81001; 83605; 83735; 85014; 85018; 85025; 85055; 85610; 85730; 86850; 86900; 86901; 86923; 87081; 88305; 88342; 93005; 96361; 96374; 99285; A9270; C9113; J0696; J2704; J7030; J7120; P9016; Q9967

== ENCOUNTER 2020-08-18 17:20 | Emergency (ER) | payer MEDICARE, MEDICAID, SELFPAY ==
--- NOTE | ~2020-08-18 | XR_ITS ---
EXAMINATION: XR G tube replacement w image EXAM DATE: 08/18/2020 18:11 INDICATION: Gastrostomy tube check. TECHNIQUE: Frontal projection(s) of the abdomen for interpretation. Comparison is made to prior exami nation from 11/28/2019. FINDINGS: Small amount of contrast, 20 mL injected through gastrostomy tube. This outlined some norm al gastric antral rugal folds, and drain into the duodenum. There is small duodenal diverticulum. No evidence of extraluminal contrast. Nonobstructive bowel gas pattern. IMPRESSION: Gastrostomy tube in position. Reviewed, dictated and finalized at location A.
[2020-08-18 17:34] VITALS: BP 166/85; PULSE 79; RESP 18; TEMP 36.4; O2SAT 98
[2020-08-18 17:35] LABS: Glucose Point of Care 97 (65-105)
--- NOTE | 2020-08-18 18:09 | ED.GENADULT ---
HPI - General Adult General Chief complaint: Unspecified Stated complaint: PULLED OUT G TUBE Time Seen by Provider: 08/18/20 17:47 Source: EMS and old records reviewed Mode of arrival: EMS Limitations: clinical condition History of Present Illness HPI narrative: Patient is a female who presents from skilled nursing nonverbal for evaluation having pulled her G-tube out no other history provided other than the G-tube was pulled out today on arrival patient is nonverbal and unable to communicate this localized to verbal stimulation and painful stimulation Related Data Home Medications Medication Instructions Recorded Confirmed aspirin 81 mg FEEDING TUBE DAILY 01/08/20 01/09/20 atorvastatin 80 mg FEEDING TUBE DAILY 01/08/20 01/09/20 escitalopram oxalate 10 mg FEEDING TUBE DAILY 01/08/20 01/09/20 furosemide 40 mg FEEDING TUBE DAILY 01/08/20 01/09/20 multivitamin with minerals 15 ml FEEDING TUBE DAILY 01/09/20 01/09/20 lactulose [Enulose] 08/18/20 omeprazole 08/18/20 rifaximin [Xifaxan] mg 08/18/20 Allergies Allergy/AdvReac Type Severity Reaction Status Date / Time No Known Allergies Allergy Verified 08/18/20 17:39 Review of Systems Review of Systems: ROS unobtainable: Yes unobtainable due to medical condition [facility] Past Medical History Medical History Abnormal gag reflex Partial paralysis Aspiration pneumonia Bilateral artificial lens implant Bilateral cataracts Brain aneurysm With SUPERVISOR ROD PLACING shunt in place Brain bleed CVA (cerebral vascular accident) Dementia Depression Gastrostomy tube in place HLD (hyperlipidemia) HTN (hypertension) Incontinence Skin lesion lt nose Subarachnoid hemorrhage Subdural hematoma TBI (traumatic brain injury) Surgical History Surgical History Angle recession of both eyes History of appendectomy 1953 History of bilateral cataract extraction 2006 History of hysterectomy History of tonsillectomy SUPERVISOR ROD PLACING (ventriculoperitoneal) shunt status Family History Family History (Updated 01/09/20 @ 14:09 by Corry Uribe PA-C) Mother Dementia Father No problems noted. Social History Social History Social History: Ms. Chamberlain is a resident of [facility]. Her daughter Lucille is her surrogate decision maker. She is a DNR. Smoking status: Former smoker Tobacco type: cigarettes Additional smoking assessment comments: Quit smoking years ago Alcohol intake: never Substance use: unknown Gender identity (if verbalized by the patient): Female Spiritual care concerns: No Agree to blood products: Yes Exam Narrative: Exam Narrative: GENERAL: Well-appearing, well-nourished, and in no acute distress. HEAD: Normocephalic, atraumatic. EYES: PERRLA and EOMI. ENT: Nares clear, no rhinorrhea or epistaxis. Mucous membranes moist. CHEST: Clear to auscultation. No respiratory distress. No wheezes rales or rhonchi HEART: Regular rate and rhythm. No murmur heard. Normal peripheral pulses. ABDOMEN: Soft, nontender, nondistended, normal active bowel sounds. SKIN: Warm, dry, no rash. NEURO: Patient in the room orients to verbal stimulation Course Course Emergency Course: Patient's G-tube was replaced will be sent back to skilled nursing Vital Signs Vital signs: Vital Signs Temperature 97.5 F L 08/18/20 17:34 Pulse Rate 79 08/18/20 17:34 Respiratory Rate 18 08/18/20 17:34 Blood Pressure 166/85 H 08/18/20 17:34 Pulse Oximetry 98 08/18/20 17:34 Temperature 97.5 F L 08/18/20 17:34 Pulse Rate 79 08/18/20 17:34 Respiratory Rate 18 08/18/20 17:34 Blood Pressure 166/85 H 08/18/20 17:34 Pulse Oximetry 98 08/18/20 17:34 Procedures Other Procedure Procedure 1: Other Procedure: Patient had G-tube placed without complication 20 cc
[2020-08-18 18:46] VITALS: BP 156/64; PULSE 70; RESP 12; O2SAT 99
[2020-08-18 21:05] VITALS: BP 140/76; PULSE 76; RESP 16; O2SAT 98
--- NOTE | 2020-08-18 21:32 | PCDIET ---
called [facility] for ETA update. ETA [id number]
--- NOTE | 2020-08-18 21:34 | PC.NURSE ---
Called [facility] for ETA update. ETA [id number]
--- NOTE | 2020-08-18 22:01 | PC.NURSE ---
[facility] called to update ETA to [id number]
--- NOTE | 2020-08-18 23:16 | PC.NURSE ---
[facility] here.
[2020-08-18 23:20] VITALS: BP 152/60; PULSE 76; RESP 18; O2SAT 99
== END 2020-08-18 23:21 ==
PROVIDERS: Emergency Provider Emergency Medicine; PCP Family Medicine
DX: Z43.1 Encounter for attention to gastrostomy (principal); Z79.82 Long term (current) use of aspirin; J39.2 Other diseases of pharynx; Z86.73 Personal history of transient ischemic attack (TIA), and cerebral infarction without residual deficits; F03.90 Unspecified dementia, unspecified severity, without behavioral disturbance, psychotic disturbance, mood disturbance, and anxiety; E78.5 Hyperlipidemia, unspecified; I10 Essential (primary) hypertension; Z87.820 Personal history of traumatic brain injury; F32.9 Major depressive disorder, single episode, unspecified; Z98.42 Cataract extraction status, left eye; Z98.41 Cataract extraction status, right eye; Z96.1 Presence of intraocular lens; Z98.2 Presence of cerebrospinal fluid drainage device; Z66 Do not resuscitate; Z87.891 Personal history of nicotine dependence
CPT/HCPCS: 49450; 82948; 99284

== ENCOUNTER 2020-11-01 15:48 | Inpatient (IN) | payer MEDICARE, MEDICAID, SELFPAY ==
[2020-11-01] VITALS (7 sets, daily range): BP systolic 111–124; BP diastolic 48–64; PULSE 103–108; RESP 20–28; TEMP 36.2; O2SAT 87–90
--- NOTE | ~2020-11-01 | CT_ITS ---
EXAMINATION: CTA chest PE protocol DATE: 11/01/2020 19:12 INDICATION: Shortness of breath TECHNIQUE: Computed tomography angiography (CTA) of the chest was performed with 100 mL Omnipaque-350 intravenous contrast timed to evaluate the pulmonary arteries. Coronal maximum intensity projection 3D-reconstructions were created by the technologist. The dose-length product (DLP) was 840.36 mGy-cm. Automated exposure control and iterative reconstruction technique were employed. COMPARISON: 01/14/2010 FINDINGS: The pulmonary arteries are well-opacified. No pulmonary embolism is identified. Motion jamel fact somewhat limits the examination in the lung bases. There are airspace opacities of the lower lob es. No pleural effusion or pneumothorax is identified. The heart size is normal. There is mild bilate ral hilar lymphadenopathy, likely reactive. Calcified coronary artery atherosclerosis is noted. There is a 3.1 x 2.5 cm mass of the right breast. A stone is present in the nondistended gallbladder. A pe rcutaneous gastrostomy is in the stomach. Nonobstructing stones of the right kidney lower pole measur e up to 5 mm. There is mild thoracic spondylosis. IMPRESSION: 1. No central pulmonary embolism identified, evaluation of peripheral branches in the lung bases is l imited by motion artifact. 2. Airspace opacities of the lower lobes, consistent with pneumonia. 3. Indeterminate right breast mass. Follow-up with nonemergent diagnostic mammogram and ultrasound is recommended. Reviewed, dictated and finalized at location A. ICULUM ASSISTANT IMPRESSION: 1. No central pulmonary embolism identified, evaluation of peripheral branches in the lung bases is limited by motion artifact. 2. Airspace opacities of the lower lobes, consistent with pneumonia. 3. Indeterminate right breast mass. Follow-up with nonemergent diagnostic mammo gram and ultrasound is recommended.
--- NOTE | ~2020-11-01 | XR_ITS ---
XR chest 1V portable DATE: 11/01/2020 17:25 INDICATION: Transient alteration of awareness. TECHNIQUE: Portable upright AP chest on 10/24/2020 at 1726 hours COMPARISON: 11/22/2016 portable AP chest at 2120 hours FINDINGS: Cardiac megaly. Aortic calcification. There are patchy bilateral lower lung infiltrates and/or atelectasis. No pleural effusion or pulmonar y vascular congestion or pneumothorax. Right ventricular atrial shunt catheter. IMPRESSION: Bilateral patchy lower lung infiltrate and/atelectasis Reviewed, dictated and finalized at location A. UTION TEACHER
--- NOTE | ~2020-11-01 | CT_ITS ---
EXAMINATION: CT brain wo con INDICATION: Altered mental status, dementia COMPARISON: 01/15/2017 TECHNIQUE: Standard unenhanced head CT. The dose-length product (DLP) was 605.33 mGy-cm. The mA was a djusted according to patient size. Iterative reconstruction technique was employed. FINDINGS: Changes of occipital craniotomy are again noted with chronic encephalomalacia and surgical change in the cerebellum. A right frontal ventricular shunt ends with its tip in the frontal horn of the right lateral ventricle. There is encephalomalacia along the catheter tract. There is no acute in traparenchymal hemorrhage. No evidence of mass lesion. No evidence of acute infarction. There is mild periventricular and subcortical hypodensity probably related to small vessel ischemic disease. There is mild prominence of the sulci and ventricles related to cerebral atrophy. Intracranial calcified c erebral atherosclerosis is noted. There are no extra-axial collections. There is no mass effect or mi dline shift. Changes in the globes are likely from ocular lens surgery. There is mild mucosal thicke nadir of the paranasal sinuses. IMPRESSION: 1. Stable chronic changes as detailed above without acute intracranial abnormality. 2. Age related findings. Reviewed, dictated and finalized at location A. FIGHTERS DISPATCHER IMPRESSION: 1. Stable chronic changes as detailed above without acute intracranial abnormal ity. 2. Age related findings.
--- NOTE | 2020-11-01 15:56 | ECG_ITS ---
Measurements Intervals [place] Rate: 101 P: 44 NE: 145 QRS: 20 QRSD: 78 T: 37 QT: 319 QTc: 415 Interpretive Statements SINUS TACHYCARDIA LOW QRS VOLTAGE IN PRECORDIAL LEADS ANTERIOR INFARCT, AGE INDETERMINATE BASELINE ARTIFACT- I, III, AVR, AVL, V1-V6 ABNORMAL ECG Electronically Signed On 11-01-2020 16:08:57 PHOTO LAB TECHNICIAN by Alex Bullock D.O.
[2020-11-01 16:25] LABS: Basophils Percent Auto 0.2 % (0.2-1.2); Eosinophils Percent Auto 0.1 % (0-4.4); Hematocrit 41.3 % (37.0-47.0); Hemoglobin 13.3 g/dL (12.0-15.0); Lymphocytes Absolute Auto 1.09 K/mm3 (0.9-3.2); Lymphocytes Percent Auto 8.8 % (18.3-44.2); Mean Corpuscular HGB Conc 32.2 g/dl (32-36); Mean Platelet Volume 11.7 fl (7.4-10.4); Monocytes Absolute Auto 0.7 K/mm3 (0.1-0.6); Monocytes Percent Auto 5.3 % (2.6-8.5); Neutrophils Absolute Auto 10.6 K/mm3 (1.3-6.7); Neutrophils Percent Auto 85.6 % (45.5-73.1); Platelet Count Result 150 k/mm3 (150-375); Red Blood Count 4.59 M/mm3 (4.2-5.4); Red Cell Distribution Width 14.5 % (11.5-14.5); White Blood Count 12.4 K/mm3 (4.5-10.0)
[2020-11-01 16:29] LABS: Add Urine Microscopic? YES; Appearance Urine Clear (Clear); Bacteria Urine 4+ /hpf; Bilirubin Urine Negative (Negative); Color Urine Yellow (Yellow); Glucose Urine UA 3+ mg/dL (Negative); Ketones Urine Negative (Negative); Leukocyte Esterase Ur 1+ LEU/UL (Negative); Mucus Urine Rare /lpf; Nitrate Urine Positive (Negative); Protein Urine 2+ mg/dL (Negative); Specific Grav Ur 1.016 (1.001-1.035); Squamous Epithelial Cell Urine Occasional /hpf (Few); WBC Clumps Urine Present /HPF; WBC Urine 21-30 /hpf
[2020-11-01 16:31] LABS: Blood Urine Negative (Negative)
[2020-11-01 16:37] LABS: Lactic Acid Reflex 2.3 mmol/L (0.7-2.1)
[2020-11-01 16:38] LABS: Alanine Aminotransferase 33 U/L (4-35); Albumin Level 3.7 g/dL (3.5-5.1); Alkaline Phosphatase 120 U/L (38-126); Anion Gap 7 mmol/L (8-16); Aspartate Amino Transferase 44 U/L (14-36); Bilirubin,Total 1.2 mg/dL (0.2-1.3); Blood Urea Nitrogen 45 mg/dL (7-17); Calcium 9.3 mg/dL (8.4-10.2); Carbon Dioxide 30 mmol/L (22-30); Chloride 105 mmol/L (98-107); Estimated CRCL calculation 41 ml/min; Estimated Glomerular Filt Rate 60; Glucose 189 mg/dL (65-105); Potassium 4.2 mmol/L (3.4-5.0); Sodium 142 mmol/L (137-145)
--- NOTE | 2020-11-01 16:48 | ED.GENADULT ---
HPI - General Adult General Chief complaint: Altered Mental Status Stated complaint: AMS/PNEUMONIA Time Seen by Provider: 11/01/20 16:10 Source: family and EMS History of Present Illness HPI narrative: Patient is a 80 y/o female sent from ID from [facility] and increased altered mental status since yesterday. Patient is nonverbal and unable to provide any history. Patient has history of intracranial bleed and has a feeding tube. Daughter states that she was told by ID that patient had cough, gurgling respiration and they were concerned that she may have aspirated. Daughter also states that ID did Xray which showed possible pneumonia. Daughter states that patient tested positive for COVID recently, but she is not sure about the exact date of COVID positivity. Related Data Home Medications Medication Instructions Recorded Confirmed atorvastatin 80 mg FEEDING TUBE DAILY 01/08/20 11/01/20 escitalopram oxalate 10 mg FEEDING TUBE DAILY 01/08/20 11/01/20 furosemide 40 mg FEEDING TUBE DAILY 01/08/20 11/01/20 multivitamin with minerals 15 ml FEEDING TUBE DAILY 01/09/20 11/01/20 lactulose [Enulose] 30 g FEEDING TUBE QID 08/18/20 11/01/20 omeprazole 20 mg FEEDING TUBE DAILY 08/18/20 11/01/20 rifaximin [Xifaxan] 550 mg FEEDING TUBE BID 08/18/20 11/01/20 guaifenesin 300 mg PO Q4H PRN 11/01/20 11/01/20 Allergies Allergy/AdvReac Type Severity Reaction Status Date / Time No Known Allergies Allergy Verified 11/01/20 16:33 Review of Systems Review of Systems: ROS unobtainable: Yes unobtainable due to mental status PMFSH Past Medical History Medical History (Updated 11/01/20 @ 23:01 by Mica Alvarez MD) Abnormal gag reflex Partial paralysis Aspiration pneumonia Bilateral artificial lens implant Bilateral cataracts Brain aneurysm With WARD SUPERVISOR shunt in place Brain bleed CVA (cerebral vascular accident) Dementia Depression Gastrostomy tube in place HLD (hyperlipidemia) HTN (hypertension) Incontinence Skin lesion lt nose Subarachnoid hemorrhage Subdural hematoma TBI (traumatic brain injury) Surgical History Surgical History Angle recession of both eyes History of appendectomy 1953 History of bilateral cataract extraction 2006 History of hysterectomy History of tonsillectomy WARD SUPERVISOR (ventriculoperitoneal) shunt status Family History Family History Mother Dementia Father No problems noted. Social History Social History Social History: Ms. Chamberlain is a resident of [facility]. Her daughter Lucille is her surrogate decision maker. She is a DNR. Smoking status: Former smoker Tobacco type: cigarettes Additional smoking assessment comments: Quit smoking years ago Alcohol intake: never Substance use: unknown Gender identity (if verbalized by the patient): Female Spiritual care concerns: No Agree to blood products: Yes Exam Const: General: no acute distress and ill appearing HENMT: Head: normocephalic Ears: external ears normal General nose exam: Normal external nose present Eyes: General: appearance normal, both eyes and all related structures Conjunctivae: conjunctivae normal Neck: Neck: normal visual inspection and full ROM Chest: Chest palpation & inspection: normal inspection of the chest and no tenderness Resp: Effort & Inspection: normal respiratory effort Auscultation: clear to auscultation bilaterally Cardio: Rate: tachycardic Rhythm: regular rhythm GI: Inspection: other (feeding tube noted in left upper abdomen) GI Palp: No abdominal tenderness and Yes Soft to palpation Skin: General skin exam: normal color and turgor normal Neuro: Cognition (Neuro): abnormal cognition Other: does not answer question or follow commands Extrem: General: normal to inspection, full ROM and
[2020-11-01 17:01] LABS: Alveolar/Arterial O2 Gradient 173.4 mmHg; Base Excess ABG 3.9 mEq/l (+/-2.0); Device NASAL CANNULA; Fractional Inspired Oxygen 32 %; HCO3 ABG 27.2 mEq/l (22.0-26.0); Modified Allen's Test Pass; Oxygen Saturation ABG 91.2 % (95.0-100.0); Oxyhemoglobin 89.9 % THb (90.0-100.0); PCO2 ABG 36.5 mmHg (35.0-45.0); PO2 ABG 55.4 mmHg (80.0-100.0); PO2 FiO2 Ratio Arterial Blood 1.46 %; Site Drawn RIGHT RADIAL; Total Hemoglobin 14.3 g/dL (12.0-18.0)
[2020-11-01 19:23] LABS: Reflex Lactic Acid Yes or No Add Lactic
--- NOTE | 2020-11-01 20:21 | PM.IMHP ---
H&P: HPI History of Present Illness Date/Time: 11/01/20 20:21 Chief Complaint: Respiratory distress, tachypnea and using abdominal muscles Narrative: Citlaly Joshua is a 80 year old female with PMHx depression, hypertension, xeropthalmia, hyperlipidemia, h/o TBI subdural hematoma s/p 2ND GRADE TEACHER shunt in 2017, brain aneurysm 1998, chronic G tube, h/o COVID 19 diagnosis presents to the ED from [facility] with change in condition, tachycardic and breathing with abdominal muscles. She was non-verbal on my evaluation and for the ER provider. History was obtained from notes. EMS notes say patient stated I don't feel okay . Apparently patient had COVID-19 around 09/19/2020 and was managed outpatient by [facility]. Chest x-ray showed pneumonia. She was sent to the ED for worsening dyspnea and respiratory distress using abdominal muscles. Patient is DNR. There is some concern for aspiration pneumonia. Her tube feeds appears to be Osmolite from 6 p.m. to 8 a.m.. I discussed with MARCELA Adkins. Patient sometimes will say yes or no but usually is non-verbal. She is wheelchair and bedbound. Lives at [facility] since 2007. In the ED: EKG sinus tachycardia rate 101. WBC 12, ABG shows hypoxia PO2 55 on 3 L oxygen nasal cannula, COVID-19 swabbed, head CT stable chronic disease, chest x-ray bilateral infiltrates consistent with COVID-19, CTA chest negative for PE, incidental finding of right breast mass. Patient being admitted for acute hypoxic respiratory failure secondary to be acquired pneumonia versus aspiration pneumonia versus COVID-19 Review of Systems Review of Systems: Narrative: Unable to obtain, patient nonverbal ROS unobtainable: Yes unobtainable due to mental status PMFSH Past Medical History Medical History Abnormal gag reflex Partial paralysis Aspiration pneumonia Bilateral artificial lens implant Bilateral cataracts Brain aneurysm With 2ND GRADE TEACHER shunt in place Brain bleed CVA (cerebral vascular accident) Dementia Depression Gastrostomy tube in place HLD (hyperlipidemia) HTN (hypertension) Incontinence Skin lesion lt nose Subarachnoid hemorrhage Subdural hematoma TBI (traumatic brain injury) Surgical History Surgical History Angle recession of both eyes History of appendectomy 1953 History of bilateral cataract extraction 2006 History of hysterectomy History of tonsillectomy 2ND GRADE TEACHER (ventriculoperitoneal) shunt status Family History Family History Mother Dementia Father No problems noted. Social History Social History Social History: Ms. Chamberlain is a resident of [facility]. Her daughter Lucille is her surrogate decision maker. She is a DNR. Smoking status: Former smoker Tobacco type: cigarettes Additional smoking assessment comments: Quit smoking years ago Alcohol intake: never Substance use: unknown Gender identity (if verbalized by the patient): Female Spiritual care concerns: No Agree to blood products: Yes Meds Home Medications and Allergies Home Medications Medication Instructions Recorded Confirmed Type atorvastatin 80 mg FEEDING TUBE DAILY 01/08/20 01/09/20 History escitalopram oxalate 10 mg FEEDING TUBE DAILY 01/08/20 01/09/20 History furosemide 40 mg FEEDING TUBE DAILY 01/08/20 01/09/20 History multivitamin with minerals 15 ml FEEDING TUBE DAILY 01/09/20 01/09/20 History lactulose [Enulose] 08/18/20 History omeprazole 08/18/20 History rifaximin [Xifaxan] mg 08/18/20 History guaifenesin 300 mg PO Q4H PRN 11/01/20 History Allergies Allergy/AdvReac Type Severity Reaction Status Date / Time No Known Allergies Allergy Verified 11/01/20 16:33 Vital Signs Vital Signs - 24 hr 11/01/20 15:49 10/06
[2020-11-01 20:32] LABS: Lactic Acid 2.1 mmol/L (0.7-2.1)
[2020-11-01] MEDS: SODIUM CHLORIDE 0.9% IV 1,000 ML 125 ML IV CONT (22:13)
[2020-11-02] VITALS (13 sets, daily range): BP systolic 117–145; BP diastolic 54–74; PULSE 102–114; RESP 16–28; TEMP 36.6–37.3; O2SAT 91–96; BMI 26.9
[2020-11-02 01:19] LABS: CRP 37.7 mg/dL (<1.0); Lactate Dehydrogenase 614 U/L (313-618)
[2020-11-02 06:42] LABS: Anion Gap 6 mmol/L (8-16); Blood Urea Nitrogen 38 mg/dL (7-17); Calcium 8.7 mg/dL (8.4-10.2); Carbon Dioxide 25 mmol/L (22-30); Chloride 109 mmol/L (98-107); Estimated CRCL calculation 52 ml/min; Estimated Glomerular Filt Rate > 60; Glucose 289 mg/dL (65-105); Magnesium 2.4 mg/dL (1.6-2.3); Potassium 4.5 mmol/L (3.4-5.0); Sodium 140 mmol/L (137-145)
[2020-11-02] MEDS: LANSOPRAZOLE ORAL SUSP 30 MG/10 ML ORAL.SUSP FEED TUBE (07:45)
[2020-11-02 08:28] LABS: Hemoglobin 12.3 g/dL (12.0-15.0); Mean Corpuscular HGB Conc 31.5 g/dl (32-36); Mean Corpuscular Hemoglobin 28.7 pg (26-34); Mean Corpuscular Volume 91.1 fl (80-100); Mean Platelet Volume 12.2 fl (7.4-10.4); Platelet Count Result 141 k/mm3 (150-375); Red Blood Count 4.28 M/mm3 (4.2-5.4); Red Cell Distribution Width 14.4 % (11.5-14.5); White Blood Count 10.7 K/mm3 (4.5-10.0)
[2020-11-02] MEDS: ALBUTEROL SULFATE NEB 2.5 MG/0.5 ML INH 5 MG INHALATION ×3 (08:47→20:41)
[2020-11-02] MEDS: SODIUM CHLORIDE 0.9% IV 1,000 ML 100 ML IV CONT ×3 (09:40→21:17)
[2020-11-02] MEDS: ENOXAPARIN 40 MG/0.4 ML SYRINGE SUB-Q (09:41)
[2020-11-02] MEDS: ESCITALOPRAM OXALATE 10 MG TABLET FEED TUBE (09:42)
[2020-11-02] MEDS: rifAXIMin 550 MG TABLET FEED TUBE ×2 (09:42→17:50)
[2020-11-02] MEDS: LACTULOSE 20 GM/30 ML UDC 30 GM FEED TUBE ×4 (09:43→21:18)
[2020-11-02] MEDS: MULTIVIT W/ IRON, MINERALS 15 ML LIQUID (*BKC) FEED TUBE (09:43)
[2020-11-02] MEDS: ATORVASTATIN 40 MG TABLET 80 MG FEED TUBE (09:57)
--- NOTE | 2020-11-02 13:56 | PM.IMPN ---
Progress Note: A&P Assessment and Plan (1) Acute respiratory failure with hypoxia: Code(s): J96.01 - Acute respiratory failure with hypoxia <Geraldinetuyet Edwards, PA-C - Last Filed: 11/02/20 16:53> Status: Acute <Geraldinetuyet Edwards, PA-C - Last Filed: 11/02/20 16:53> Assessment and Plan: Suspect secondary to pneumonia. CTA chest demonstrates WILMAR airspace disease. COVID pending. Possible aspiration. Continue supplemental oxygen and wean as tolerated to keep O2 saturations > 90%. <Geraldinetuyet Edwards, PA-C - Last Filed: 11/02/20 16:53> (2) COVID-19: Code(s): U07.1 - COVID-19 <Geraldinetuyet Edwards PA-C - Last Filed: 11/02/20 16:53> Status: Resolved <Geraldine Ritraquel, PA-C - Last Filed: 11/02/20 16:53> Assessment and Plan: Reportedly was diagnosed 09/19/20. COVID test pending. Bilateral infiltrates on imaging may represent residual COVID-19 pulmonary fibrosis vs. new bacterial infection; reinfection with COVID 19 is unlikely. <Geraldinetuyet Edwards, PA-C - Last Filed: 11/02/20 16:53> (3) Pneumonia: Qualifiers: Laterality: bilateral Lung location: unspecified part of lung Pneumonia type: due to unspecified organism Qualified Code(s): J18.9 - Pneumonia, unspecified organism <Geraldine Edwards, PA-C - Last Filed: 11/02/20 16:53> Code(s): J18.9 - Pneumonia, unspecified organism <Geraldine Ritraquel, PA-C - Last Filed: 11/02/20 16:53> Status: Acute <Geraldine Edwards, PA-C - Last Filed: 11/02/20 16:53> Assessment and Plan: Possibility of CAP vs. aspiration, superimposed on previous history of COVID-19 which was diagnosed 09/19/2020. History of aspiration, on tube feeds. Continue aspiration precautions. Continue IV rocephin and azithromycin (day 2). <EMMA VictoriaC - Last Filed: 11/02/20 16:53> (4) Septicemia: Code(s): A41.9 - Sepsis, unspecified organism <EMMA VictoriaC - Last Filed: 11/02/20 16:53> Status: Acute <TOMAS Victoria-C - Last Filed: 11/02/20 16:53> Assessment and Plan: Blood cultures growing Gram neg bacilli; urine culture growing E coli. Suspected source is urinary. Continue abx, monitor vital signs and urine output. <TOMAS Victoria-C - Last Filed: 11/02/20 16:53> (5) UTI (urinary tract infection): Qualifiers: Hematuria presence: without hematuria Urinary tract infection type: site unspecified Qualified Code(s): N39.0 - Urinary tract infection, site not specified <TOMAS Victoria-C - Last Filed: 11/02/20 16:53> Code(s): N39.0 - Urinary tract infection, site not specified <TOMAS Victoria-C - Last Filed: 11/02/20 16:53> Status: Acute <TOMAS Victoria-C - Last Filed: 11/02/20 16:53> Assessment and Plan: Urine culture growing E coli, positive blood cultures. Continue IV rocephin (day 2) while awaiting sensitivities. <Geraldine Edwards PA-C - Last Filed: 11/02/20 16:53> (6) Gastrostomy tube in place: Code(s): Z93.1 - Gastrostomy status <Geraldine Edwards PA-C - Last Filed: 11/02/20 16:53> Status: Acute <Geraldine Edwards PA-C - Last Filed: 11/02/20 16:53> Assessment and Plan: Continue continuous G tube feeds overnight per [facility] records. All medications through G tube. <Geraldine Edwards PA-C - Last Filed: 11/02/20 16:53> (7) Brain aneurysm: Code(s): I67.1 - Cerebral aneurysm, nonruptured <Geraldine Edawrds PA-C - Last Filed: 11/02/20 16:53> Status: Acute <Geraldine Edwards PA-C - Last Filed: 11/02/20 16:53> A
--- NOTE | 2020-11-02 15:37 | PCDIET ---
Nutrition assessment Complete: Inability to consume foods orally related to swallowing difficulty as evidence by hx of aspiration, chronic g tube and need for enteral nutrition Total intake will meet estimated kcal and protein needs Additional Notes: Agree with Osmolite 1.5 at 70ml/hr over 14 hrs (6p-8am) providing 1470kcals, 61g protein, and 746ml of free water Recommend water flush of 100ml q 4 hrs to meet remaining fluid needs Because Osmolite is a no fiber formula, recommend fiber supplement via tube or moving to Jevity 1.5 at 70ml/hr to provided a mixed fiber formula for alf care
[2020-11-02 18:44] LABS: SARS-CoV-2 RNA PCR Negative
[2020-11-03] VITALS (17 sets, daily range): BP systolic 133–178; BP diastolic 61–75; PULSE 61–109; RESP 20–24; TEMP 36.7–37.3; O2SAT 91–97
[2020-11-03] MEDS: ALBUTEROL SULFATE NEB 2.5 MG/0.5 ML INH 5 MG INHALATION ×5 (02:24→20:45)
[2020-11-03] MEDS: LANSOPRAZOLE ORAL SUSP 30 MG/10 ML ORAL.SUSP FEED TUBE (05:56)
[2020-11-03 06:21] LABS: Basophils Absolute Auto 0.1 K/mm3 (0.0-0.1); Basophils Percent Auto 0.5 % (0.2-1.2); Eosinophils Percent Auto 0.2 % (0-4.4); Hemoglobin 11.9 g/dL (12.0-15.0); Immature Granulocyte Absolute 0.08 K/mm3 (0.00-0.031); Immature Granulocyte Percent A 0.8 % (0-0.5); Lymphocytes Absolute Auto 0.72 K/mm3 (0.9-3.2); Lymphocytes Percent Auto 7.6 % (18.3-44.2); Mean Corpuscular HGB Conc 30.5 g/dl (32-36); Mean Corpuscular Hemoglobin 28.9 pg (26-34); Mean Corpuscular Volume 94.7 fl (80-100); Mean Platelet Volume 11.4 fl (7.4-10.4); Monocytes Absolute Auto 0.7 K/mm3 (0.1-0.6); Monocytes Percent Auto 7.3 % (2.6-8.5); Neutrophils Absolute Auto 7.9 K/mm3 (1.3-6.7); Neutrophils Percent Auto 83.6 % (45.5-73.1); Platelet Count Result 147 k/mm3 (150-375); Red Blood Count 4.12 M/mm3 (4.2-5.4); Red Cell Distribution Width 14.6 % (11.5-14.5); White Blood Count 9.5 K/mm3 (4.5-10.0)
[2020-11-03 06:36] LABS: Anion Gap 7 mmol/L (8-16); Blood Urea Nitrogen 24 mg/dL (7-17); Calcium 8.8 mg/dL (8.4-10.2); Carbon Dioxide 27 mmol/L (22-30); Chloride 118 mmol/L (98-107); Estimated CRCL calculation 60 ml/min; Estimated Glomerular Filt Rate > 60; Glucose 357 mg/dL (65-105); Magnesium 2.5 mg/dL (1.6-2.3); Phosphorus 3.7 mg/dL (2.5-4.5); Potassium 3.8 mmol/L (3.4-5.0); Sodium 152 mmol/L (137-145)
[2020-11-03] MEDS: ATORVASTATIN 40 MG TABLET 80 MG FEED TUBE (08:55)
[2020-11-03] MEDS: ENOXAPARIN 40 MG/0.4 ML SYRINGE SUB-Q (08:55)
[2020-11-03] MEDS: LACTULOSE 20 GM/30 ML UDC 30 GM FEED TUBE ×4 (08:56→21:16)
[2020-11-03] MEDS: ESCITALOPRAM OXALATE 10 MG TABLET FEED TUBE (08:56)
[2020-11-03] MEDS: rifAXIMin 550 MG TABLET FEED TUBE ×2 (08:57→18:01)
[2020-11-03] MEDS: MULTIVIT W/ IRON, MINERALS 15 ML LIQUID (*BKC) FEED TUBE (08:57)
[2020-11-03 11:59] LABS: Alanine Aminotransferase 27 U/L (4-35); Albumin Level 3.3 g/dL (3.5-5.1); Alkaline Phosphatase 130 U/L (38-126); Anion Gap 5 mmol/L (8-16); Aspartate Amino Transferase 29 U/L (14-36); Bilirubin,Total 0.4 mg/dL (0.2-1.3); Blood Urea Nitrogen 22 mg/dL (7-17); Carbon Dioxide 28 mmol/L (22-30); Chloride 120 mmol/L (98-107); Estimated CRCL calculation 60 ml/min; Estimated Glomerular Filt Rate > 60; Glucose 319 mg/dL (65-105); Potassium 3.8 mmol/L (3.4-5.0); Sodium 153 mmol/L (137-145)
--- NOTE | 2020-11-03 14:47 | PM.IMPN ---
Progress Note: A&P Assessment and Plan (1) Acute respiratory failure with hypoxia: Code(s): J96.01 - Acute respiratory failure with hypoxia <Geraldine Edwards PA-C - Last Filed: 11/03/20 17:48> Status: Acute <TOMAS Victoria-C - Last Filed: 11/03/20 17:48> Assessment and Plan: Suspect secondary to aspiration pneumonia. CTA chest demonstrates WILMAR airspace disease. Continue supplemental oxygen and wean as tolerated to keep O2 saturations > 90%. Condition unchanged today. <EMMA VictoriaC - Last Filed: 11/03/20 17:48> (2) Pneumonia: Qualifiers: Laterality: bilateral Lung location: unspecified part of lung Pneumonia type: due to unspecified organism Qualified Code(s): J18.9 - Pneumonia, unspecified organism <EMMA VictoriaC - Last Filed: 11/03/20 17:48> Code(s): J18.9 - Pneumonia, unspecified organism <EMMA VictoriaC - Last Filed: 11/03/20 17:48> Status: Acute <EMMA VictoriaC - Last Filed: 11/03/20 17:48> Assessment and Plan: With history of aspiration. On G tube feeds. Daughter tells me she vomited 3 times 11/01 at [facility]. Aspiration PNA is suspected. Was treated with 2 days of azithromycin and rocephin. Given her multi-drug resistant UTI/bacteremia and suspected aspiration, switched to broad spectrum renally-dosed IV zosyn this morning, see above. <EMMA VictoriaC - Last Filed: 11/03/20 17:48> (3) Septicemia: Code(s): A41.9 - Sepsis, unspecified organism <Geraldine Edwards PA-C - Last Filed: 11/03/20 17:48> Status: Acute <TOMAS Victoria-C - Last Filed: 11/03/20 17:48> Assessment and Plan: Sepsis criteria met with leukocytosis and tachycardia on arrival. Urinary source is most likely, cannot exclude pulmonary source. Blood cultures growing E coli; urine culture growing ESBL E coli. Was previously treated with IV Rocephin; switched to IV Zosyn this morning 11/03 based on new sensitivity report to cover ESBL E coli as well as respiratory pathogens from suspected aspiration. Appreciate infectious disease consultation in this setting. Continue abx, monitor vital signs and urine output. <EMMA VictoriaC - Last Filed: 11/03/20 17:48> (4) UTI (urinary tract infection): Qualifiers: Hematuria presence: without hematuria Urinary tract infection type: site unspecified Qualified Code(s): N39.0 - Urinary tract infection, site not specified <EMMA VictoriaC - Last Filed: 11/03/20 17:48> Code(s): N39.0 - Urinary tract infection, site not specified <EMMA VictoriaC - Last Filed: 11/03/20 17:48> Status: Acute <TOMAS Victoria-C - Last Filed: 11/03/20 17:48> Assessment and Plan: See above. <TOMAS Victoria-C - Last Filed: 11/03/20 17:48> (5) Gastrostomy tube in place: Code(s): Z93.1 - Gastrostomy status <EMMA VictoriaC - Last Filed: 11/03/20 17:48> Status: Acute <TOMAS Victoria-C - Last Filed: 11/03/20 17:48> Assessment and Plan: Continue continuous G tube feeds overnight per [facility] records. All medications through G tube. <Geraldine Edwards PA-C - Last Filed: 11/03/20 17:48> (6) Brain aneurysm: Code(s): I67.1 - Cerebral aneurysm, nonruptured <Geraldine Edwards PA-C - Last Filed: 11/03/20 17:48> Status: Acute <Geraldine Edwards PA-C - Last Filed: 11/03/20 17:48> Assessment and Plan: Remote history of brain aneurysm s/p BARYTES GRINDER shunt (1998), also history of subdural hematoma (2016). <Geraldine
[2020-11-03] MEDS: INSULIN ASPART (*BKC) 100 UNITS/ML SUB-Q (17:37)
[2020-11-03 17:55] LABS: Glucose Point of Care 217 (65-105)
[2020-11-04] VITALS (14 sets, daily range): BP systolic 137–200; BP diastolic 65–98; PULSE 80–135; RESP 22–35; TEMP 37.2; O2SAT 91–97
[2020-11-04 00:52] LABS: Glucose Point of Care 285 (65-105)
[2020-11-04] MEDS: ALBUTEROL SULFATE NEB 2.5 MG/0.5 ML INH 5 MG INHALATION ×4 (03:10→20:07)
[2020-11-04] MEDS: LANSOPRAZOLE ORAL SUSP 30 MG/10 ML ORAL.SUSP FEED TUBE (06:01)
[2020-11-04 06:31] LABS: Glucose Point of Care 290 (65-105)
[2020-11-04 07:00] LABS: Basophils Percent Auto 0.4 % (0.2-1.2); Eosinophils Percent Auto 0.2 % (0-4.4); Hematocrit 41.9 % (37.0-47.0); Hemoglobin 12.9 g/dL (12.0-15.0); Immature Granulocyte Absolute 0.11 K/mm3 (0.00-0.031); Immature Granulocyte Percent A 1.4 % (0-0.5); Lymphocytes Absolute Auto 0.93 K/mm3 (0.9-3.2); Lymphocytes Percent Auto 11.6 % (18.3-44.2); Mean Corpuscular HGB Conc 30.8 g/dl (32-36); Mean Corpuscular Hemoglobin 28.7 pg (26-34); Mean Corpuscular Volume 93.1 fl (80-100); Mean Platelet Volume 11.3 fl (7.4-10.4); Monocytes Absolute Auto 0.7 K/mm3 (0.1-0.6); Monocytes Percent Auto 9.1 % (2.6-8.5); Neutrophils Absolute Auto 6.2 K/mm3 (1.3-6.7); Neutrophils Percent Auto 77.3 % (45.5-73.1); Platelet Count Result 190 k/mm3 (150-375); Red Cell Distribution Width 14.5 % (11.5-14.5)
[2020-11-04 07:08] LABS: Hemoglobin A1C 6.9 % (<5.7)
[2020-11-04 07:29] LABS: Alanine Aminotransferase 29 U/L (4-35); Albumin Level 3.5 g/dL (3.5-5.1); Alkaline Phosphatase 136 U/L (38-126); Anion Gap 9 mmol/L (8-16); Aspartate Amino Transferase 30 U/L (14-36); Bilirubin,Total 0.5 mg/dL (0.2-1.3); Blood Urea Nitrogen 29 mg/dL (7-17); Calcium 9.4 mg/dL (8.4-10.2); Carbon Dioxide 27 mmol/L (22-30); Chloride 123 mmol/L (98-107); Estimated CRCL calculation 46 ml/min; Estimated Glomerular Filt Rate > 60; Glucose 388 mg/dL (65-105); Magnesium 2.7 mg/dL (1.6-2.3); Potassium 3.6 mmol/L (3.4-5.0); Sodium 159 mmol/L (137-145)
[2020-11-04] MEDS: ATORVASTATIN 40 MG TABLET 80 MG FEED TUBE (08:18)
[2020-11-04] MEDS: ENOXAPARIN 40 MG/0.4 ML SYRINGE SUB-Q (08:18)
[2020-11-04] MEDS: rifAXIMin 550 MG TABLET FEED TUBE ×2 (08:19→16:41)
[2020-11-04] MEDS: ESCITALOPRAM OXALATE 10 MG TABLET FEED TUBE (08:19)
[2020-11-04] MEDS: LACTULOSE 20 GM/30 ML UDC 30 GM FEED TUBE ×4 (08:19→20:19)
[2020-11-04] MEDS: MULTIVIT W/ IRON, MINERALS 15 ML LIQUID (*BKC) FEED TUBE (08:20)
[2020-11-04] MEDS: INSULIN ASPART (*BKC) 100 UNITS/ML SUB-Q ×3 (08:29→16:18)
[2020-11-04 10:00] LABS: Glucose Point of Care 393 (65-105)
[2020-11-04] MEDS: DEXTROSE 5% 1,000 ML 1,000 ML 100 ML IV CONT (10:46)
[2020-11-04] MEDS: INSULIN GLARGINE (*BKC) 100 UNITS/ML 12 UNITS SUB-Q (10:49)
--- NOTE | 2020-11-04 10:50 | PCDIET ---
Nutrition Follow-Up Complete: Inability to consume foods orally related to swallowing difficulty as evidence by hx of aspiration, chronic g tube and need for enteral nutrition Total intake will meet estimated kcal and protein needs Goal: Goal met. Continue goal. Pt current nutrition is Osmolite 1.5 at 70ml/hr 6pm-8am. Nutrition recommendation: Alter formula 2/2 rising blood sugars per MD Last recorded weight is 79.1 kg, up from assessed wt of 77.8kg Bowel Motility:4 BMs tdoay, lactulose noted Labs Reviewed: Na 159, Glucose 393 Meds Noted: MTV, Lactulose, Rifaximin Additional Notes: Plans for enteral nutrition change to Glucerna 1.2 at 90ml/hr over 14hrs (6pm-8am) 2/2 glucose of 393. At goal rate, formula will provide 1014ml of free water, 1512kcals, and 76g protein. Additional 60ml q 4hrs water flush recommended to meet remaining fluid needs. We will continue to monitor EN tolerance, weight, labs, bms every T/F.
[2020-11-04 12:12] LABS: Glucose Point of Care 237 (65-105)
[2020-11-04] MEDS: hydrALAZINE HCL 20 MG/ML VIAL 10 MG IV PUSH (13:41)
--- NOTE | 2020-11-04 14:06 | WPDINFPN2 ---
Progress Note: A&P Assessment and Plan (1) Septicemia: Code(s): A41.9 - Sepsis, unspecified organism Status: Acute Assessment and Plan: E coli bacteremia with infection, urinary source REC PipTazo # 2 / 7 days minimum, redo BCs Subjective Date/time seen: 11/04/20 14:06 Objective Data Vital Signs Vital Signs: Vital Signs - 24 hr 11/03/20 19:35 11/03/20 20:49 11/03/20 20:55 Temperature Pulse Rate 95 95 Respiratory Rate 22 H 22 H Blood Pressure Pulse Oximetry 94 93 11/03/20 22:00 11/03/20 23:15 11/04/20 03:11 Temperature 37.3 C Pulse Rate 109 H 100 Respiratory Rate 22 H 24 H Blood Pressure 178/75 H 138/70 Pulse Oximetry 97 11/04/20 03:17 11/04/20 06:00 11/04/20 08:27 Temperature 37.2 C Pulse Rate 99 102 H Respiratory Rate 24 H 28 H Blood Pressure 178/80 H 149/68 H Pulse Oximetry 97 11/04/20 08:38 11/04/20 09:30 11/04/20 09:40 Temperature Pulse Rate 96 104 H Respiratory Rate 24 H 24 H Blood Pressure Pulse Oximetry 95 93 11/04/20 13:33 Temperature Pulse Rate 135 H Respiratory Rate 35 H Blood Pressure 200/98 H Pulse Oximetry 93 Intake/Output Intake/Output: Intake & Output 11/01/20 11/02/20 11/03/20 11/04/20 23:59 23:59 23:59 23:59 Intake Total 300 2300 1960 1360 Output Total 1080 Balance 300 1220 1960 1360 Meds/Results Medications: Active Medications Generic Name Dose Route Start Last Admin Trade Name Freq PRN Reason Stop Dose Admin Acetaminophen 650 mg 11/01/20 22:38 Acetaminophen Elixir 325 Mg/10.15 Ml Udc FEED TUBE Q6H PRN Mild Pain (1-3) or Fever Albuterol 5 mg 11/02/20 02:00 11/04/20 09:30 Albuterol Sulfate Neb 2.5 Mg/0.5 Ml Inh INHALATION 5 mg Q6HRT VISHAL Administration Amlodipine Besylate 5 mg 11/04/20 13:55 Amlodipine Besylate 5 Mg Tablet FEED TUBE QAM VISHAL Atorvastatin Calcium 80 mg 11/02/20 09:00 11/04/20 08:18 Atorvastatin 40 Mg Tablet FEED TUBE 80 mg DAILY VISHAL Administration Dextrose 12.5 gm 11/03/20 14:40 Dextrose 50% 25 Gm/50 Ml Syringe IV PUSH PRN PRN Hypoglycemia Protocol Enoxaparin Sodium 40 mg 11/02/20 09:00 11/04/20 08:18 Enoxaparin 40 Mg/0.4 Ml Syringe SUB-Q 40 mg DAILY IVSHAL Administration Escitalopram Oxalate 10 mg 11/02/20 09:00 11/04/20 08:19 Escitalopram Oxalate 10 Mg Tablet FEED TUBE 10 mg DAILY VISHAL Administration Glucagon 1 mg 11/03/20 14:40 Glucagon For Inj 1 Mg Vial IM PRN PRN Hypoglycemia Protocol Glucose 15 gm 11/03/20 14:40 Glucose Oral Gel 15 Gm Of Glucse In 37.5 Gm Tube PO PRN PRN Hypoglycemia Protocol Guaifenesin 300 mg 11/01/20 23:31 Guaifenesin 200 Mg/10 Ml Udc PO Q4H PRN Cough Hydralazine HCl 10 mg 11/04/20 13:33 11/04/20 13:41 Hydralazine Hcl 20 Mg/Ml Vial IV PUSH 10 mg Q8H PRN Administration Blood Pressure - High Piperacillin/Tazobactam/Dextrose 3.375 gm in 50 mls @ 100 mls/hr 11/03/20 12:00 11/04/20 12:03 Zosyn 3.375 Gm/D5w 50ml Pm IVPB 100 mls/hr Q6H VISHAL Administration Dextrose 1,000 mls @ 100 mls/hr 11/03/20 14:40 Dextrose 5% 1,000 Ml IVPB PRN PRN Hypoglycemia Protocol Dextrose 1,000 mls @ 100 mls/hr 11/04/20 09:45 11/04/20 10:46 Dextrose 5% 1,000 Ml IV CONT 11/04/20 19:44 100 mls/hr .Q10H VISHAL Administration Insulin Aspart 2 - 5 units 11/03/20 17:00 11/04/20 12:09 Insulin Aspart (*Bkc) 100 Units/Ml SUB-Q 2 units TIDWM VISHAL Administration Protocol Insulin Glargine 12 units 11/04/20 09:35 11/04/20 10:49 Insulin Glargine (*Bkc) 100 Units/Ml 0.15 units/kg (12 units) 12 units SUB-Q Administration QAM VISHAL Lactulose 30 gm 11/02/20 09:00 11/04/20 12:06 Lactulose 20 Gm/30 Ml Udc FEED TUBE 30 gm QID VISHAL Administration Lansoprazole 30 mg 11/02/20 07:10 11/04/20 06:01 Lansoprazole Oral Susp 30 Mg/10 Ml Oral.Susp FEED TUBE
--- NOTE | 2020-11-04 14:35 | P.PNIM_ITS ---
Progress Note: A&P Assessment and Plan (1) Acute respiratory failure with hypoxia: Code(s): J96.01 - Acute respiratory failure with hypoxia <Geraldine Edwards PA-C - Last Filed: 11/04/20 16:28> Status: Acute <Geraldine Edwards PA-C - Last Filed: 11/04/20 16:28> Assessment and Plan: * Suspect secondary to aspiration pneumonia. CTA chest demonstrates WILMAR airspace disease. * Continue supplemental oxygen and wean as tolerated to keep O2 saturations > 90%. Respiratory status overall unchanged today. <Geraldine Edwards PA-C - Last Filed: 11/04/20 16:28> (2) Pneumonia: Qualifiers: Laterality: bilateral Lung location: unspecified part of lung Pneumonia type: due to unspecified organism Qualified Code(s): J18.9 - Pneumonia, unspecified organism <Geraldine Edwards PA-C - Last Filed: 11/04/20 16:28> Code(s): J18.9 - Pneumonia, unspecified organism <Geraldine Edwards PA-C - Last Filed: 11/04/20 16:28> Status: Acute <Geraldine Edwards PA-C - Last Filed: 11/04/20 16:28> Assessment and Plan: * With history of aspiration. On G tube feeds. Daughter tells me she vomited 3 times 11/01 at retirement. Aspiration PNA is suspected. * Was treated with 2 days of azithromycin and rocephin. Given her multi-drug resistant UTI/bacteremia and suspected aspiration, switched to broad spectrum renally-dosed IV zosyn 11/03 (day 2), see above. <Geraldine Edwards PA-C - Julian Fi led: 11/04/20 16:28> (3) Septicemia: Code(s): A41.9 - Sepsis, unspecified organism <CAROLINA Victoria st Filed: 11/04/20 16:28> Status: Acute <CAROLINA Victoria Last Filed: 11/04/20 16:28> Assessment and Plan: * Sepsis criteria met with leukocytosis and tachycardia on arrival. Urinary source is most likely, cannot exclude pulmonary source. * Urine and blood cultures with ESBL E coli. Continue IV Zosyn (day 2) and appreciate infectious disease consultation in this setting. * Monitor vital signs and urine output. <Geraldine Edwards PA-C - Last Filed: 11/04/20 16:28> (4) UTI (urinary tract infection): Qualifiers: Hematuria presence: without hematuria Urinary tract infection type: site unspecified Qualified Code(s): N39.0 - Urinary tract infection, site not specified <Geraldine Edwards PA-C - Last Filed: 11/04/20 16:28> Code(s): N39.0 - Urinary tract infection, site not specified <Geraldine Edwards PA-C - Last Filed: 11/04/20 16:28> Status: Acute <CAROLINA Victoria Last Filed: 11/04/20 16:28> Assessment and Plan: * See above. <Geraldine Edwards PA-C - Last Filed: 11/04/20 16:28> (5) Gastrostomy tube in place: Code(s): Z93.1 - Gastrostomy status <CAROLINA Victoria Last Filed: 11/04/20 16:28> Status: Acute <Geraldine Edwards PA-C - Last Filed: 11/04/20 16:28> Assessment and Plan: * Continue continuous G tube feeds overnight per retirement records. All medications through G tube. * [facility] G-tube feedings were with Osmolite 1.5 at 70 mL/hr from 6PM. to 8AM; given hyperglycemia and elevated Hgb A1c, will change tonight to Glucerna 1.2 at 90 mL/hr which is less calorie dense, thus free water flushes are decreased to 60mL q4hr. Discussed with dietitian 11/04 for her recommendations. <Geraldine Edwards
--- NOTE | 2020-11-04 14:35 | PM.IMPN ---
Progress Note: A&P Assessment and Plan (1) Acute respiratory failure with hypoxia: Code(s): J96.01 - Acute respiratory failure with hypoxia <Geraldine Edwards PA-C - Last Filed: 11/04/20 16:28> Status: Acute <TOMAS Victoria-C - Last Filed: 11/04/20 16:28> Assessment and Plan: Suspect secondary to aspiration pneumonia. CTA chest demonstrates WILMAR airspace disease. Continue supplemental oxygen and wean as tolerated to keep O2 saturations > 90%. Respiratory status overall unchanged today. <EMMA VictoriaC - Last Filed: 11/04/20 16:28> (2) Pneumonia: Qualifiers: Laterality: bilateral Lung location: unspecified part of lung Pneumonia type: due to unspecified organism Qualified Code(s): J18.9 - Pneumonia, unspecified organism <EMMA VictoriaC - Last Filed: 11/04/20 16:28> Code(s): J18.9 - Pneumonia, unspecified organism <EMMA VictoriaC - Last Filed: 11/04/20 16:28> Status: Acute <EMMA VictoriaC - Last Filed: 11/04/20 16:28> Assessment and Plan: With history of aspiration. On G tube feeds. Daughter tells me she vomited 3 times 11/01 at long term. Aspiration PNA is suspected. Was treated with 2 days of azithromycin and rocephin. Given her multi-drug resistant UTI/bacteremia and suspected aspiration, switched to broad spectrum renally-dosed IV zosyn 11/03 (day 2), see above. <Geraldine Edwards PA-C - Last Filed: 11/04/20 16:28> (3) Septicemia: Code(s): A41.9 - Sepsis, unspecified organism <Geraldine Edwards PA-C - Last Filed: 11/04/20 16:28> Status: Acute <Geraldine Edwards PA-C - Last Filed: 11/04/20 16:28> Assessment and Plan: Sepsis criteria met with leukocytosis and tachycardia on arrival. Urinary source is most likely, cannot exclude pulmonary source. Urine and blood cultures with ESBL E coli. Continue IV Zosyn (day 2) and appreciate infectious disease consultation in this setting. Monitor vital signs and urine output. <Geraldine Edwards PA-C - Last Filed: 11/04/20 16:28> (4) UTI (urinary tract infection): Qualifiers: Hematuria presence: without hematuria Urinary tract infection type: site unspecified Qualified Code(s): N39.0 - Urinary tract infection, site not specified <Geraldine Edwards PA-C - Last Filed: 11/04/20 16:28> Code(s): N39.0 - Urinary tract infection, site not specified <Geraldine Edwards PA-C - Last Filed: 11/04/20 16:28> Status: Acute <Geraldine Edwards PA-C - Last Filed: 11/04/20 16:28> Assessment and Plan: See above. <Geraldine Edwards PA-C - Last Filed: 11/04/20 16:28> (5) Gastrostomy tube in place: Code(s): Z93.1 - Gastrostomy status <Geraldine Edwards PA-C - Last Filed: 11/04/20 16:28> Status: Acute <Geraldine Edwards PA-C - Last Filed: 11/04/20 16:28> Assessment and Plan: Continue continuous G tube feeds overnight per long term records. All medications through G tube. senior care G-tube feedings were with Osmolite 1.5 at 70 mL/hr from 6PM. to 8AM; given hyperglycemia and elevated Hgb A1c, will change tonight to Glucerna 1.2 at 90 mL/hr which is less calorie dense, thus free water flushes are decreased to 60mL q4hr. Discussed with dietitian 11/04 for her recommendations. <Geraldine Edwards PA-C - Last Filed: 11/04/20 16:28> (6) Brain aneurysm: Code(s): I67.1 - Cerebral aneurysm, nonruptured <Geraldine Edwards PA-C - Last Filed: 11/04/20 16:28> Status: Acute <Geraldine Edwards PA-C - Last Filed: 11/04/20 16:28> Assessment and Plan: Remote history of brain
[2020-11-04 14:36] LABS: Anion Gap 9 mmol/L (8-16); Blood Urea Nitrogen 25 mg/dL (7-17); Calcium 9.5 mg/dL (8.4-10.2); Carbon Dioxide 26 mmol/L (22-30); Chloride 124 mmol/L (98-107); Estimated CRCL calculation 46 ml/min; Estimated Glomerular Filt Rate > 60; Glucose 271 mg/dL (65-105); Potassium 3.3 mmol/L (3.4-5.0); Sodium 159 mmol/L (137-145)
[2020-11-04] MEDS: amLODIPine BESYLATE 5 MG TABLET FEED TUBE (15:21)
[2020-11-04] MEDS: SALINE 0.65% NAS SOLN 44 ML BTL 1 SPRAY NASAL (15:21)
[2020-11-04 16:27] LABS: Glucose Point of Care 251 (65-105)
[2020-11-04] MEDS: POTASSIUM CHLORIDE 20 MEQ PACKET (FOR LIQUID) FEED TUBE (16:41)
--- NOTE | 2020-11-04 19:35 | CONS_ITS ---
DATE OF CONSULTATION: 11/04/2020 REASON FOR CONSULTATION: Bacteremia with E. coli. HISTORY OF PRESENT ILLNESS: An 80-year-old female who cannot provide any history due to decreased level of consciousness. She is a resident in a [facility] and available records indicate no recent antibiotics for any purpose. She was brought from her [facility] 3 days ago with tachycardia and labored respirations. She has tube feeding, it is typically nonverbal in a comprehensive way. The patient begin ceftriaxone and azithromycin initially, changed to piperacillin yesterday. Consultation requested. No events here in the hospital and she is DNR. Tube feeding is ongoing. PRESENT MEDICATIONS: No immunosuppressants. HABITS: Ex-smoker. No alcohol. ALLERGIES: NONE KNOWN. 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 REVIEW OF SYSTEMS: Attempted 14 point, not obtainable from the patient. FAMILY HISTORY: Not pertinent to present illness. SOCIAL HISTORY: She is disabled. Lives in a [facility]. No family at the bedside. Does have a daughter who is her POA. PHYSICAL EXAMINATION: GENERAL: This is an elderly female, appears older than her actual age. No respiratory distress. VITAL SIGNS: Afebrile since arrival, 135, 35, 200/98, 2 L oxygen saturation 93%. SKIN: No rashes. Warm and dry. NODES: She has no cervical adenopathy. EENT: Resists eye exam, but brief inspection normal. Dry mucous membranes with crusting. No thrush. No HSV. NECK: Without meningismus or masses. LUNGS: Coarse breath sounds, vesicular, clear to percussion. CHEST: No indwelling vascular devices. CARDIAC: Soft, S1, S2. Tachycardic. Grade 1/6 systolic flow murmur, left sternal border. Pulses 1+. ABDOMEN: G-tube in place without tunnel infection evident. She has no masses, abdominal tenderness, nor organomegaly. EXTREMITIES: Muscle wasting. No clubbing, cyanosis, edema. She has no femoral lines and no Nye catheter. RADIOLOGY DATA: From 01/08/2020, abdomen and pelvic CT showed a right nephrolithiasis and gallstones, diverticulosis. Chest CT performed on admission here, airspace opacities of the lower lobes and indeterminate right breast mass. Chest x-ray has similar findings. LABORATORY DATA: Urine and blood cultures with ESBL producing E. coli. I reviewed the susceptibilities. Her white blood cell count 8.0 with 12.4 on admission, hemoglobin 12.9, and platelets are 190. Differential minimal left shift. Blood gases 7.49, 37, 55, 27, 91% on 3 L. She has hypernatremia 159 up to 142, BUN 29, creatinine 0.8, and glucose 388. A1c 6.9%. Alkaline phosphatase 136. Urinalysis, multiple abnormalities, which are reviewed. Segura virus assay nonreactive. ASSESSMENT: 1. Escherichia coli bacteremia due to urinary tract infection. Other sources are less likely including gallbladder disease, primary bloodstream infection, wound infection, and pneumonia. She does not have a chronic Nye catheter. 2. Lung infiltrates, possibly due to her bacteremia with Escherichia coli infection. Community-acquired pathogens are unlikely. 3. Previous subarachnoid hemorrhage and subdural hematoma with debilitated state and decreased level consciousness. 4. Diabetes mellitus. RECOMMENDATIONS: 1. Continue piperacillin. 2. Redo her blood cultures and if it is persistently positive, would switch to an alternative such as carbapenem. 3. Anticipate 7 days of IV therapy. 4. Follow up depending upon the clinical course.
[2020-11-05] VITALS (17 sets, daily range): BP systolic 162–172; BP diastolic 70–88; PULSE 89–134; RESP 20–48; TEMP 36.7–38.1; O2SAT 92–95
[2020-11-05 01:06] LABS: Glucose Point of Care 294 (65-105)
[2020-11-05 01:06] LABS: Glucose Point of Care 246 (65-105)
[2020-11-05] MEDS: ALBUTEROL SULFATE NEB 2.5 MG/0.5 ML INH 5 MG INHALATION ×4 (02:17→23:42)
[2020-11-05 04:52] LABS: Glucose Point of Care 290 (65-105)
[2020-11-05] MEDS: LANSOPRAZOLE ORAL SUSP 30 MG/10 ML ORAL.SUSP FEED TUBE (05:25)
[2020-11-05 07:29] LABS: Basophils Percent Auto 0.3 % (0.2-1.2); Eosinophils Absolute Auto 0.1 K/mm3 (0-0.3); Eosinophils Percent Auto 0.7 % (0-4.4); Hematocrit 43.1 % (37.0-47.0); Hemoglobin 13.4 g/dL (12.0-15.0); Immature Granulocyte Absolute 0.15 K/mm3 (0.00-0.031); Immature Granulocyte Percent A 1.3 % (0-0.5); Lymphocytes Absolute Auto 1.43 K/mm3 (0.9-3.2); Lymphocytes Percent Auto 12.6 % (18.3-44.2); Mean Corpuscular HGB Conc 31.1 g/dl (32-36); Mean Corpuscular Hemoglobin 29.1 pg (26-34); Mean Corpuscular Volume 93.5 fl (80-100); Mean Platelet Volume 11.5 fl (7.4-10.4); Monocytes Absolute Auto 0.8 K/mm3 (0.1-0.6); Monocytes Percent Auto 6.9 % (2.6-8.5); Neutrophils Absolute Auto 8.9 K/mm3 (1.3-6.7); Neutrophils Percent Auto 78.2 % (45.5-73.1); Platelet Count Result 235 k/mm3 (150-375); Red Blood Count 4.61 M/mm3 (4.2-5.4); Red Cell Distribution Width 14.7 % (11.5-14.5); White Blood Count 11.3 K/mm3 (4.5-10.0)
[2020-11-05 07:38] LABS: Anion Gap 7 mmol/L (8-16); Blood Urea Nitrogen 31 mg/dL (7-17); Calcium 9.6 mg/dL (8.4-10.2); Carbon Dioxide 27 mmol/L (22-30); Chloride 124 mmol/L (98-107); Estimated CRCL calculation 46 ml/min; Estimated Glomerular Filt Rate > 60; Glucose 336 mg/dL (65-105); Magnesium 2.5 mg/dL (1.6-2.3); Phosphorus 3.4 mg/dL (2.5-4.5); Potassium 3.5 mmol/L (3.4-5.0); Sodium 158 mmol/L (137-145)
[2020-11-05 08:36] LABS: Glucose Point of Care 273 (65-105)
[2020-11-05] MEDS: INSULIN ASPART (*BKC) 100 UNITS/ML SUB-Q ×3 (09:15→17:10)
[2020-11-05] MEDS: ENOXAPARIN 40 MG/0.4 ML SYRINGE SUB-Q (09:16)
[2020-11-05] MEDS: ATORVASTATIN 40 MG TABLET 80 MG FEED TUBE (09:16)
[2020-11-05] MEDS: amLODIPine BESYLATE 5 MG TABLET FEED TUBE (09:16)
[2020-11-05] MEDS: POTASSIUM CHLORIDE 20 MEQ PACKET (FOR LIQUID) 40 MEQ PO (09:16)
[2020-11-05] MEDS: INSULIN GLARGINE (*BKC) 100 UNITS/ML 12 UNITS SUB-Q (09:17)
[2020-11-05] MEDS: ESCITALOPRAM OXALATE 10 MG TABLET FEED TUBE (09:17)
[2020-11-05] MEDS: LACTULOSE 20 GM/30 ML UDC 30 GM FEED TUBE ×2 (09:17→12:18)
[2020-11-05] MEDS: MULTIVIT W/ IRON, MINERALS 15 ML LIQUID (*BKC) FEED TUBE (09:18)
[2020-11-05] MEDS: rifAXIMin 550 MG TABLET FEED TUBE ×2 (09:18→17:08)
[2020-11-05 12:28] LABS: Glucose Point of Care 266 (65-105)
--- NOTE | 2020-11-05 13:26 | PM.IMPN ---
Progress Note: A&P Assessment and Plan (1) Acute respiratory failure with hypoxia: Code(s): J96.01 - Acute respiratory failure with hypoxia Status: Acute Assessment and Plan: Suspect secondary to aspiration pneumonia. CTA chest demonstrates WILMAR airspace disease. Continue supplemental oxygen and wean as tolerated to keep O2 saturations > 90%. Respiratory status overall unchanged today. _11/05/20 13:26 Patient 80 year female a resident of nursing patient is minimally oriented nonverbal patient was sent to emergency department with shortness of breath and increased confusion initially patient was started Rocephin and azithromycin for possible pneumonia, patient was tested for COVID 11/01 is negative, CT of the chest was not very conclusive for pneumonia, patient blood culture is growing E coli with ESBL and and sensitive Zosyn, was started on Zosyn, patient was seen by Dr. lackey and suspect E coli most likely UTI source recommended to continue antibiotic total of 7 days, unfortunately patient unable to provide any review of symptom will continue the present management, and further recommendation to follow (2) Pneumonia: Qualifiers: Laterality: bilateral Lung location: unspecified part of lung Pneumonia type: due to unspecified organism Qualified Code(s): J18.9 - Pneumonia, unspecified organism Code(s): J18.9 - Pneumonia, unspecified organism Status: Acute Assessment and Plan: With history of aspiration. On G tube feeds. Daughter tells me she vom[facility] times 11[facility]01 at [facility]. Aspiration PNA is suspected. Was treated with 2 days of azithromycin and rocephin. Given her multi-drug resistant UTI/bacteremia and suspected aspiration, switched to broad spectrum renally-dosed IV zosyn 11/03 (day 2), see above. (3) Septicemia: Code(s): A41.9 - Sepsis, unspecified organism Status: Acute Assessment and Plan: Sepsis criteria met with leukocytosis and tachycardia on arrival. Urinary source is most likely, cannot exclude pulmonary source. Urine and blood cultures with ESBL E coli. Continue IV Zosyn (day 2) and appreciate infectious disease consultation in this setting. Monitor vital signs and urine output. (4) UTI (urinary tract infection): Qualifiers: Urinary tract infection type: site unspecified Hematuria presence: without hematuria Qualified Code(s): N39.0 - Urinary tract infection, site not specified Code(s): N39.0 - Urinary tract infection, site not specified Status: Acute Assessment and Plan: See above. (5) Gastrostomy tube in place: Code(s): Z93.1 - Gastrostomy status Status: Acute Assessment and Plan: Continue continuous G tube feeds overnight per [facility] records. All medications through G tube. custodial G-tube feedings were with Osmolite 1.5 at 70 mL/hr from 6PM. to 8AM; given hyperglycemia and elevated Hgb A1c, will change tonight to Glucerna 1.2 at 90 mL/hr which is less calorie dense, thus free water flushes are decreased to 60mL q4hr. Discussed with dietitian 11/04 for her recommendations. (6) Brain aneurysm: Code(s): I67.1 - Cerebral aneurysm, nonruptured Status: Acute Assessment and Plan: Remote history of brain aneurysm s/p EXPLOSIVE EXPERT shunt (1998), also history of subdural hematoma (2016). (7) COVID-19: Code(s): U07.1 - COVID-19 Status: Resolved Assessment and Plan: Reportedly was diagnosed 09/19/20. COVID test 11/01 is negative. Bilateral infiltrates on imaging may represent residual COVID-19 pulmonary fibrosis vs. new bacterial infection; reinfection with COVID 19 is unlikely.
[2020-11-05] MEDS: ACETAMINOPHEN ELIXIR 325 MG/10.15 ML UDC 650 MG FEED TUBE (14:09)
--- NOTE | 2020-11-05 14:28 | PC.NURSE ---
1405 pt resp 48, pulse ox 92 %, incresed o2 to 3l, tylonol given, Dr. Sandra notified.
[2020-11-05] MEDS: FUROSEMIDE INJ 40 MG/4 ML VIAL IV PUSH (15:02)
--- NOTE | 2020-11-05 16:05 | PCDIET ---
Nutrition Follow-Up Complete: Inability to consume foods orally related to swallowing difficulty as evidence by hx of aspiration, chronic g tube and need for enteral nutrition Total intake will meet estimated kcal and protein needs Goal:Goal met,. Continue goal Pt current nutrition is Glucerna 1.2 at 90ml/hr over 14hrs (6pm-8am). Nutrition recommendation: agree; spoke with MD today to increase water flush to 90ml q 4hrs temporarily due to continued elevated Na at 158 today. Last recorded weight is 79.1 kg, up from 77.8kg on assessment Bowel Motility: 4 BMs today Labs Reviewed:Glucose 336 and Na 158 Meds Noted:Insulin, MTV, lactulose, rifaximin Additional Notes: Spoke with MD today about lactulose, BMs, and elevated Na. MD plans to increase water flush and reduced lactulose to help increase hydration and reduced BMs. Pt is tolerating Glucerna 1.2 at goal of 90ml/hr over 14 hrs providing 2310kcals, 96g protein, and 1173ml of free water, with additional 540ml of free water with flushes. Pt may also benefit from increase insulin at this time. We will continue to follow for EN tolerance, weight, labs, bms every t/f.
[2020-11-05 17:17] LABS: Glucose Point of Care 248 (65-105)
[2020-11-05] MEDS: hydrALAZINE HCL 20 MG/ML VIAL 10 MG IV PUSH (23:00)
[2020-11-05 23:52] LABS: Glucose Point of Care 195 (65-105)
[2020-11-06] VITALS (13 sets, daily range): BP systolic 116–141; BP diastolic 55–66; PULSE 92–104; RESP 20–28; TEMP 36.4–36.7; O2SAT 92–95
[2020-11-06] MEDS: ALBUTEROL SULFATE NEB 2.5 MG/0.5 ML INH 5 MG INHALATION ×4 (03:57→20:26)
[2020-11-06 04:57] LABS: Glucose Point of Care 249 (65-105)
[2020-11-06] MEDS: LANSOPRAZOLE ORAL SUSP 30 MG/10 ML ORAL.SUSP FEED TUBE (05:36)
[2020-11-06 06:33] LABS: Hematocrit 47.2 % (37.0-47.0); Hemoglobin 14.4 g/dL (12.0-15.0); Mean Corpuscular HGB Conc 30.5 g/dl (32-36); Mean Corpuscular Hemoglobin 28.2 pg (26-34); Mean Corpuscular Volume 92.5 fl (80-100); Mean Platelet Volume 11.7 fl (7.4-10.4); Platelet Count Result 284 k/mm3 (150-375); White Blood Count 13.1 K/mm3 (4.5-10.0)
[2020-11-06 06:59] LABS: Anion Gap 8 mmol/L (8-16); Blood Urea Nitrogen 46 mg/dL (7-17); Calcium 9.4 mg/dL (8.4-10.2); Carbon Dioxide 30 mmol/L (22-30); Chloride 123 mmol/L (98-107); Estimated CRCL calculation 37 ml/min; Estimated Glomerular Filt Rate 53; Glucose 327 mg/dL (65-105); Potassium 3.5 mmol/L (3.4-5.0); Sodium 161 mmol/L (137-145)
[2020-11-06 07:15] LABS: Atypical Lymphocytes Present; Band Neutrophils Percent 2 % (0-6); Eosinophils Absolute Manual 0.13 K/mm3 (0.02-0.5); Eosinophils Percent Manual 1 % (0-4); Lymphocytes Absolute Manual 1.96 K/mm3 (1.1-4.5); Monocytes Absolute Manual 0.39 K/mm3 (0.1-0.90); Monocytes Percent Manual 3 % (3-9); Neutrophils Absolute Manual 10.61 K/mm3 (1.7-7.2); Neutrophils Percent Manual 79 % (46-73); Platelet Estimate Adequate (Adequate); Total Cells Counted 100
[2020-11-06 08:13] LABS: Glucose Point of Care 304 (65-105)
[2020-11-06] MEDS: MULTIVIT W/ IRON, MINERALS 15 ML LIQUID (*BKC) FEED TUBE (08:13)
[2020-11-06] MEDS: ENOXAPARIN 40 MG/0.4 ML SYRINGE SUB-Q (08:13)
[2020-11-06] MEDS: ESCITALOPRAM OXALATE 10 MG TABLET FEED TUBE (08:13)
[2020-11-06] MEDS: rifAXIMin 550 MG TABLET FEED TUBE ×2 (08:13→16:17)
[2020-11-06] MEDS: amLODIPine BESYLATE 5 MG TABLET FEED TUBE (08:13)
[2020-11-06] MEDS: ATORVASTATIN 40 MG TABLET 80 MG FEED TUBE (08:13)
[2020-11-06] MEDS: INSULIN ASPART (*BKC) 100 UNITS/ML SUB-Q ×3 (08:15→16:20)
[2020-11-06] MEDS: INSULIN GLARGINE (*BKC) 100 UNITS/ML 12 UNITS SUB-Q (08:16)
[2020-11-06] MEDS: DEXTROSE 5% 1,000 ML 1,000 ML 50 ML IV CONT (08:21)
--- NOTE | 2020-11-06 10:47 | WPDINFPN2 ---
Progress Note: A&P Assessment and Plan (1) Septicemia: Code(s): A41.9 - Sepsis, unspecified organism Status: Acute Assessment and Plan: 1. 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 Cirrhosis, on chronic rifaximin 4. Hyperglycemia REC PipTazo # 4 / 7 days, no change in Rx despite fever. BC 4 sets done yesterday, f/u on those results. Glycemic control Subjective Date/time seen: 11/06/20 10:47 Interval history: non verbal, opens eyes to voice Exam Narrative: Exam Narrative: t max 38.1 Const: General: no acute distress Eyes: General: appearance normal, both eyes and all related structures Resp: Effort & Inspection: normal respiratory effort Auscultation: rales Cardio: Rate: regular rate Rhythm: regular rhythm Heart sounds: no murmurs GI: Inspection: non-distended GI Palp: Yes Soft to palpation and No Tenderness to palpation present (GI) Skin: General skin exam: normal color and no rashes or lesions noted Objective Data Vital Signs Vital Signs: Vital Signs - 24 hr 11/05/20 11:00 11/05/20 14:00 11/05/20 14:09 Temperature 37.7 C H 38.1 C H 38.1 C H Pulse Rate 134 H Respiratory Rate 48 H Blood Pressure 168/88 H Pulse Oximetry 93 11/05/20 14:25 11/05/20 15:09 11/05/20 18:34 Temperature 37.7 C H 37.6 C Pulse Rate 98 Respiratory Rate 28 H Blood Pressure Pulse Oximetry 11/05/20 20:00 11/05/20 20:55 11/05/20 21:13 Temperature 37.3 C 37.2 C Pulse Rate Respiratory Rate 20 Blood Pressure Pulse Oximetry 95 11/05/20 21:56 11/05/20 23:00 11/05/20 23:42 Temperature 37.3 C Pulse Rate 100 Respiratory Rate 20 Blood Pressure 168/82 H 172/80 H Pulse Oximetry 95 93 11/05/20 23:44 11/06/20 03:00 11/06/20 03:58 Temperature Pulse Rate 106 H 103 H Respiratory Rate 28 H 26 H Blood Pressure 133/62 Pulse Oximetry 11/06/20 06:00 11/06/20 08:31 11/06/20 08:47 Temperature 36.4 C Pulse Rate 104 H 102 H Respiratory Rate 20 24 H Blood Pressure 116/55 L Pulse Oximetry 93 93 92 11/06/20 08:59 Temperature Pulse Rate 100 Respiratory Rate 24 H Blood Pressure Pulse Oximetry Intake/Output Intake/Output: Intake & Output 11/03/20 11/04/20 11/05/20 11/06/20 23:59 23:59 23:59 23:59 Intake Total 1959 2676 1684 1500 Balance 1959 2675 1684 1500 Meds/Results Medications: Active Medications Generic Name Dose Route Start Last Admin Trade Name Freq PRN Reason Stop Dose Admin Acetaminophen 650 mg 11/01/20 22:38 11/05/20 14:09 Acetaminophen Elixir 325 Mg/10.15 Ml Udc FEED TUBE 650 mg Q6H PRN Administration Mild Pain (1-3) or Fever Albuterol 5 mg 11/02/20 02:00 11/06/20 08:46 Albuterol Sulfate Neb 2.5 Mg/0.5 Ml Inh INHALATION 5 mg Q6HRT VISHAL Administration Amlodipine Besylate 5 mg 11/04/20 13:55 11/06/20 08:13 Amlodipine Besylate 5 Mg Tablet FEED TUBE 5 mg QAM VISHAL Administration Atorvastatin Calcium 80 mg 11/02/20 09:00 11/06/20 08:13 Atorvastatin 40 Mg Tablet FEED TUBE 80 mg DAILY VISHAL Administration Dextrose 12.5 gm 11/03/20 14:40 Dextrose 50% 25 Gm/50 Ml Syringe IV PUSH PRN PRN Hypoglycemia Protocol Enoxaparin Sodium 40 mg 11/02/20 09:00 11/06/20 08:13 Enoxaparin 40 Mg/0.4 Ml Syringe SUB-Q 40 mg DAILY VISHAL Administration Escitalopram Oxalate 10 mg 11/02/20 09:00 11/06/20 08:13 Escitalopram Oxalate 10 Mg Tablet FEED TUBE 10 mg DAILY VISHAL Administration Glucagon 1 mg 11/03/20 14:40 Glucagon For Inj 1 Mg Vial IM PRN PRN Hypoglycemia Protocol Glucose 15 gm 11/03/20 14:40 Glucose Oral Gel 15 Gm Of Glucse In 37.5 Gm Tube PO PRN PRN Hypoglycemia Protocol Guaifenesin 300 mg 11/01/20 23:31 Guaifenesin 200 Mg/10 Ml Udc PO Q4H PRN Cough Hydralazine HCl 10 mg 11/04/20 13:33 11/05/20 23:00 Hydralazine Hcl 20 Mg/Ml Vial IV PUSH
[2020-11-06 11:49] LABS: Glucose Point of Care 279 (65-105)
[2020-11-06 14:48] LABS: Anion Gap 6 mmol/L (8-16); Blood Urea Nitrogen 46 mg/dL (7-17); Calcium 9.3 mg/dL (8.4-10.2); Carbon Dioxide 29 mmol/L (22-30); Chloride 122 mmol/L (98-107); Estimated CRCL calculation 41 ml/min; Estimated Glomerular Filt Rate 60; Glucose 269 mg/dL (65-105); Potassium 4.1 mmol/L (3.4-5.0); Sodium 157 mmol/L (137-145)
--- NOTE | 2020-11-06 15:20 | PM.IMPN ---
Progress Note: A&P Assessment and Plan (1) Acute respiratory failure with hypoxia: Code(s): J96.01 - Acute respiratory failure with hypoxia Status: Acute Assessment and Plan: Suspect secondary to aspiration pneumonia. CTA chest demonstrates WILMAR airspace disease. Continue supplemental oxygen and wean as tolerated to keep O2 saturations > 90%. Respiratory status overall unchanged today. 11/06/20 15:20 Patient 80 year female a resident of nursing patient is minimally oriented nonverbal patient was sent to emergency department with shortness of breath and increased confusion initially patient was started Rocephin and azithromycin for possible pneumonia, patient was tested for COVID 11/01 is negative, CT of the chest was not very conclusive for pneumonia, patient blood culture is growing E coli with ESBL and and sensitive Zosyn, was started on Zosyn, patient was seen by Dr. lackey and suspect E coli most likely UTI source recommended to continue antibiotic total of 4/7 days, today patient sodium is rising, free water flushes were increase but its not improving, will start D5W 50cc per hour and monitor her sodium levels, unfortunately patient unable to provide any review of symptom will continue the present management, and further recommendation to follow (2) Pneumonia: Qualifiers: Laterality: bilateral Lung location: unspecified part of lung Pneumonia type: due to unspecified organism Qualified Code(s): J18.9 - Pneumonia, unspecified organism Code(s): J18.9 - Pneumonia, unspecified organism Status: Acute Assessment and Plan: With history of aspiration. On G tube feeds. Daughter tells me she vomited 3 times 11/01 at [facility]. Aspiration PNA is suspected. Was treated with 2 days of azithromycin and rocephin. Given her multi-drug resistant UTI/bacteremia and suspected aspiration, switched to broad spectrum renally-dosed IV zosyn 11/03 (day 2), see above. (3) Septicemia: Code(s): A41.9 - Sepsis, unspecified organism Status: Acute Assessment and Plan: Sepsis criteria met with leukocytosis and tachycardia on arrival. Urinary source is most likely, cannot exclude pulmonary source. Urine and blood cultures with ESBL E coli. Continue IV Zosyn (day 2) and appreciate infectious disease consultation in this setting. Monitor vital signs and urine output. (4) UTI (urinary tract infection): Qualifiers: Urinary tract infection type: site unspecified Hematuria presence: without hematuria Qualified Code(s): N39.0 - Urinary tract infection, site not specified Code(s): N39.0 - Urinary tract infection, site not specified Status: Acute Assessment and Plan: See above. (5) Gastrostomy tube in place: Code(s): Z93.1 - Gastrostomy status Status: Acute Assessment and Plan: Continue continuous G tube feeds overnight per [facility] records. All medications through G tube. [facility] G-tube feedings were with Osmolite 1.5 at 70 mL/hr from 6PM. to 8AM; given hyperglycemia and elevated Hgb A1c, will change tonight to Glucerna 1.2 at 90 mL/hr which is less calorie dense, thus free water flushes are decreased to 60mL q4hr. Discussed with dietitian 11/04 for her recommendations. 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 (7) COVID-19: Code(s): U07.1 - COVID-19 Status: Resolved Assessment and Plan: Reportedly was diagnosed 09/19/20. COVID test 11/01 is negative.
[2020-11-06 16:22] LABS: Glucose Point of Care 218 (65-105)
[2020-11-06 20:58] LABS: Glucose Point of Care 188 (65-105)
[2020-11-07] VITALS (13 sets, daily range): BP systolic 108–117; BP diastolic 40–51; PULSE 82–102; RESP 20–22; TEMP 36.2–36.6; O2SAT 93–99
[2020-11-07 00:30] LABS: Glucose Point of Care 183 (65-105)
[2020-11-07] MEDS: ALBUTEROL SULFATE NEB 2.5 MG/0.5 ML INH 5 MG INHALATION ×4 (02:22→20:06)
[2020-11-07 04:26] LABS: Glucose Point of Care 191 (65-105)
[2020-11-07] MEDS: LANSOPRAZOLE ORAL SUSP 30 MG/10 ML ORAL.SUSP FEED TUBE (05:25)
[2020-11-07 06:08] LABS: Basophils Absolute Auto 0.1 K/mm3 (0.0-0.1); Basophils Percent Auto 0.4 % (0.2-1.2); Eosinophils Absolute Auto 0.6 K/mm3 (0-0.3); Eosinophils Percent Auto 4.5 % (0-4.4); Hematocrit 46.7 % (37.0-47.0); Hemoglobin 13.7 g/dL (12.0-15.0); Immature Granulocyte Absolute 0.11 K/mm3 (0.00-0.031); Immature Granulocyte Percent A 0.9 % (0-0.5); Immature Platelet Fraction Pct 7.2 % (0.9-11.2); Lymphocytes Absolute Auto 2.08 K/mm3 (0.9-3.2); Lymphocytes Percent Auto 16.1 % (18.3-44.2); Mean Corpuscular HGB Conc 29.3 g/dl (32-36); Mean Corpuscular Hemoglobin 27.9 pg (26-34); Mean Corpuscular Volume 95.1 fl (80-100); Mean Platelet Volume 12.2 fl (7.4-10.4); Monocytes Absolute Auto 0.5 K/mm3 (0.1-0.6); Monocytes Percent Auto 3.6 % (2.6-8.5); Neutrophils Absolute Auto 9.7 K/mm3 (1.3-6.7); Neutrophils Percent Auto 74.5 % (45.5-73.1); Platelet Count Result 228 k/mm3 (150-375); Red Blood Count 4.91 M/mm3 (4.2-5.4); Red Cell Distribution Width 14.9 % (11.5-14.5); White Blood Count 12.9 K/mm3 (4.5-10.0)
[2020-11-07 06:35] LABS: Anion Gap 8 mmol/L (8-16); Blood Urea Nitrogen 47 mg/dL (7-17); Carbon Dioxide 27 mmol/L (22-30); Chloride 120 mmol/L (98-107); Estimated CRCL calculation 52 ml/min; Estimated Glomerular Filt Rate > 60; Glucose 249 mg/dL (65-105); Potassium 4.1 mmol/L (3.4-5.0); Sodium 155 mmol/L (137-145)
[2020-11-07 07:06] LABS: Large Platelets Present; Platelet Estimate Adequate (Adequate)
[2020-11-07] MEDS: INSULIN ASPART (*BKC) 100 UNITS/ML SUB-Q ×2 (08:13→12:47)
[2020-11-07] MEDS: ATORVASTATIN 40 MG TABLET 80 MG FEED TUBE (08:14)
[2020-11-07] MEDS: MULTIVIT W/ IRON, MINERALS 15 ML LIQUID (*BKC) FEED TUBE (08:14)
[2020-11-07] MEDS: INSULIN GLARGINE (*BKC) 100 UNITS/ML 12 UNITS SUB-Q (08:14)
[2020-11-07] MEDS: ESCITALOPRAM OXALATE 10 MG TABLET FEED TUBE (08:15)
[2020-11-07] MEDS: rifAXIMin 550 MG TABLET FEED TUBE ×2 (08:15→17:08)
[2020-11-07] MEDS: amLODIPine BESYLATE 5 MG TABLET FEED TUBE (08:15)
[2020-11-07] MEDS: ENOXAPARIN 40 MG/0.4 ML SYRINGE SUB-Q (08:15)
[2020-11-07 08:27] LABS: Glucose Point of Care 237 (65-105)
[2020-11-07] MEDS: DEXTROSE 5% 1,000 ML 1,000 ML 50 ML IV CONT (08:49)
[2020-11-07 11:51] LABS: Glucose Point of Care 226 (65-105)
--- NOTE | 2020-11-07 14:06 | PM.IMPN ---
Progress Note: A&P Assessment and Plan (1) Acute respiratory failure with hypoxia: Code(s): J96.01 - Acute respiratory failure with hypoxia Status: Acute Assessment and Plan: Suspect secondary to aspiration pneumonia. CTA chest demonstrates WILMAR airspace disease. Continue supplemental oxygen and wean as tolerated to keep O2 saturations > 90%. Respiratory status overall unchanged today. 11/07/20 14:06 Patient 80 year female a resident of nursing patient is minimally oriented nonverbal patient was sent to emergency department with shortness of breath and increased confusion initially patient was started Rocephin and azithromycin for possible pneumonia, patient was tested for COVID 11/01 is negative, CT of the chest was not very conclusive for pneumonia, patient blood culture is growing E coli with ESBL and and sensitive Zosyn, was started on Zosyn, patient was seen by Dr. lackey and suspect E coli most likely UTI source recommended to continue antibiotic total of 5/7 days, on 11/06/20 patient sodium was rising, free water flushes were increase but its not improving, D5W 50cc per hour and monitor her sodium levels it drop from 161 to 157 later in the afternoon, we held D5W, this morning sodium is 155 will resume D5W at 50cc per hour and will monitor goal is not to drop sodium 4mm in 24hrs, unfortunately patient unable to provide any review of symptom will continue the present management, and further recommendation to follow (2) Pneumonia: Qualifiers: Laterality: bilateral Lung location: unspecified part of lung Pneumonia type: due to unspecified organism Qualified Code(s): J18.9 - Pneumonia, unspecified organism Code(s): J18.9 - Pneumonia, unspecified organism Status: Acute Assessment and Plan: With history of aspiration. On G tube feeds. Daughter tells me she [facility]. Aspiration PNA is suspected. Was treated with 2 days of azithromycin and rocephin. Given her multi-drug resistant UTI/bacteremia and suspected aspiration, switched to broad spectrum renally-dosed IV zosyn 11/03 (day 2), see above. (3) Septicemia: Code(s): A41.9 - Sepsis, unspecified organism Status: Acute Assessment and Plan: Sepsis criteria met with leukocytosis and tachycardia on arrival. Urinary source is most likely, cannot exclude pulmonary source. Urine and blood cultures with ESBL E coli. Continue IV Zosyn (day 2) and appreciate infectious disease consultation in this setting. Monitor vital signs and urine output. (4) UTI (urinary tract infection): Qualifiers: Urinary tract infection type: site unspecified Hematuria presence: without hematuria Qualified Code(s): N39.0 - Urinary tract infection, site not specified Code(s): N39.0 - Urinary tract infection, site not specified Status: Acute Assessment and Plan: See above. (5) Gastrostomy tube in place: Code(s): Z93.1 - Gastrostomy status Status: Acute Assessment and Plan: Continue continuous G tube feeds overnight per longterm records. All medications through G tube. group home G-tube feedings were with Osmolite 1.5 at 70 mL/hr from 6PM. to 8AM; given hyperglycemia and elevated Hgb A1c, will change tonight to Glucerna 1.2 at 90 mL/hr which is less calorie dense, thus free water flushes are decreased to 60mL q4hr. Discussed with dietitian 11/04 for her recommendations. 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
[2020-11-07 15:19] LABS: Anion Gap 4 mmol/L (8-16); Blood Urea Nitrogen 45 mg/dL (7-17); Calcium 8.6 mg/dL (8.4-10.2); Carbon Dioxide 32 mmol/L (22-30); Chloride 117 mmol/L (98-107); Estimated CRCL calculation 52 ml/min; Estimated Glomerular Filt Rate > 60; Glucose 222 mg/dL (65-105); Sodium 153 mmol/L (137-145)
[2020-11-07 17:56] LABS: Glucose Point of Care 162 (65-105)
[2020-11-07 23:08] LABS: Glucose Point of Care 211 (65-105)
[2020-11-08] VITALS (12 sets, daily range): BP systolic 112–144; BP diastolic 48–56; PULSE 70–97; RESP 18–22; TEMP 36.4–36.8; O2SAT 92–96
[2020-11-08 00:14] LABS: Glucose Point of Care 187 (65-105)
[2020-11-08] MEDS: ALBUTEROL SULFATE NEB 2.5 MG/0.5 ML INH 5 MG INHALATION ×3 (01:50→14:35)
[2020-11-08 04:32] LABS: Glucose Point of Care 198 (65-105)
[2020-11-08] MEDS: LANSOPRAZOLE ORAL SUSP 30 MG/10 ML ORAL.SUSP FEED TUBE (06:05)
[2020-11-08 08:15] LABS: Basophils Absolute Auto 0.1 K/mm3 (0.0-0.1); Basophils Percent Auto 0.5 % (0.2-1.2); Eosinophils Absolute Auto 0.6 K/mm3 (0-0.3); Eosinophils Percent Auto 4.1 % (0-4.4); Hematocrit 49.1 % (37.0-47.0); Immature Granulocyte Absolute 0.07 K/mm3 (0.00-0.031); Immature Granulocyte Percent A 0.5 % (0-0.5); Lymphocytes Absolute Auto 1.61 K/mm3 (0.9-3.2); Lymphocytes Percent Auto 12.1 % (18.3-44.2); Mean Corpuscular HGB Conc 28.5 g/dl (32-36); Mean Corpuscular Hemoglobin 28.6 pg (26-34); Mean Corpuscular Volume 100.4 fl (80-100); Mean Platelet Volume 12.3 fl (7.4-10.4); Monocytes Absolute Auto 0.4 K/mm3 (0.1-0.6); Monocytes Percent Auto 2.9 % (2.6-8.5); Neutrophils Absolute Auto 10.6 K/mm3 (1.3-6.7); Neutrophils Percent Auto 79.9 % (45.5-73.1); Platelet Count Result 172 k/mm3 (150-375); Red Blood Count 4.89 M/mm3 (4.2-5.4); Red Cell Distribution Width 14.6 % (11.5-14.5); White Blood Count 13.3 K/mm3 (4.5-10.0)
[2020-11-08 08:38] LABS: Anisocytosis 1+ (NORMAL); Ovalocytes 1+ (NORMAL); Platelet Estimate Adequate (Adequate)
[2020-11-08 08:54] LABS: Glucose Point of Care 192 (65-105)
[2020-11-08] MEDS: ENOXAPARIN 40 MG/0.4 ML SYRINGE SUB-Q (09:06)
[2020-11-08] MEDS: amLODIPine BESYLATE 5 MG TABLET FEED TUBE (09:06)
[2020-11-08] MEDS: ATORVASTATIN 40 MG TABLET 80 MG FEED TUBE (09:06)
[2020-11-08] MEDS: ESCITALOPRAM OXALATE 10 MG TABLET FEED TUBE (09:06)
[2020-11-08] MEDS: MULTIVIT W/ IRON, MINERALS 15 ML LIQUID (*BKC) FEED TUBE (09:07)
[2020-11-08] MEDS: rifAXIMin 550 MG TABLET FEED TUBE ×2 (09:08→17:10)
[2020-11-08] MEDS: INSULIN GLARGINE (*BKC) 100 UNITS/ML 12 UNITS SUB-Q (09:20)
[2020-11-08] MEDS: DEXTROSE 5% 1,000 ML 1,000 ML 50 ML IV CONT (10:25)
[2020-11-08 10:32] LABS: Anion Gap 7 mmol/L (8-16); Blood Urea Nitrogen 38 mg/dL (7-17); Calcium 9.1 mg/dL (8.4-10.2); Carbon Dioxide 29 mmol/L (22-30); Chloride 115 mmol/L (98-107); Estimated CRCL calculation 46 ml/min; Estimated Glomerular Filt Rate > 60; Glucose 212 mg/dL (65-105); Potassium 4.4 mmol/L (3.4-5.0); Sodium 151 mmol/L (137-145)
[2020-11-08 12:36] LABS: Glucose Point of Care 224 (65-105)
[2020-11-08] MEDS: INSULIN ASPART (*BKC) 100 UNITS/ML SUB-Q (12:52)
--- NOTE | 2020-11-08 13:38 | WPDINFPN2 ---
Progress Note: A&P Assessment and Plan (1) Septicemia: Code(s): A41.9 - Sepsis, unspecified organism Status: Acute Assessment and Plan: 1. E coli bacteremia with infection, urinary source, defervesced and BCs reverted to ng, though still with mile leukocytosis 2. QUALITY LEAD shunt 3. Cirrhosis, on chronic rifaximin 4. Hyperglycemia REC PipTazo # 6 / 7 days minimum, f/u WBC. CT A/P last year did not show anatomic abnormalities of the tract, I do not think that further imaging is needed at present. Glycemic control Subjective Date/time seen: 11/08/20 13:38 Interval history: non verbal Exam Narrative: Exam Narrative: afebrile Const: General: no acute distress Resp: Effort & Inspection: normal respiratory effort Auscultation: clear to auscultation bilaterally Cardio: Rate: regular rate Rhythm: regular rhythm Heart sounds: no gallops and no murmurs GI: Inspection: non-distended GI Palp: Yes Soft to palpation and No Tenderness to palpation present (GI) Objective Data Vital Signs Vital Signs: Vital Signs - 24 hr 11/07/20 13:48 11/07/20 14:00 11/07/20 20:00 Temperature 36.4 C L Pulse Rate 98 82 Respiratory Rate 20 22 H Blood Pressure 108/51 L Pulse Oximetry 99 93 11/07/20 20:09 11/07/20 20:13 11/07/20 20:34 Temperature Pulse Rate 83 84 95 Respiratory Rate 20 20 Blood Pressure Pulse Oximetry 95 93 11/07/20 22:00 11/08/20 01:52 11/08/20 01:54 Temperature 36.6 C Pulse Rate 95 89 89 Respiratory Rate 20 22 H Blood Pressure 117/40 L Pulse Oximetry 93 94 11/08/20 01:56 11/08/20 05:58 11/08/20 07:55 Temperature 36.4 C L Pulse Rate 90 97 Respiratory Rate 22 H 20 Blood Pressure 112/48 L Pulse Oximetry 95 96 11/08/20 08:46 11/08/20 08:55 Temperature Pulse Rate 96 89 Respiratory Rate 18 18 Blood Pressure Pulse Oximetry 92 Intake/Output Intake/Output: Intake & Output 11/05/20 11/06/20 11/07/20 11/08/20 23:59 23:59 23:59 23:59 Intake Total 1684 2456 1500 2305 Balance 1684 2456 1500 2305 Meds/Results Medications: Active Medications Generic Name Dose Route Start Last Admin Trade Name Freq PRN Reason Stop Dose Admin Acetaminophen 650 mg 11/01/20 22:38 11/05/20 14:09 Acetaminophen Elixir 325 Mg/10.15 Ml Udc FEED TUBE 650 mg Q6H PRN Administration Mild Pain (1-3) or Fever Albuterol 5 mg 11/02/20 02:00 11/08/20 08:44 Albuterol Sulfate Neb 2.5 Mg/0.5 Ml Inh INHALATION 5 mg Q6HRT VISHAL Administration Amlodipine Besylate 5 mg 11/04/20 13:55 11/08/20 09:06 Amlodipine Besylate 5 Mg Tablet FEED TUBE 5 mg QAM VISHAL Administration Atorvastatin Calcium 80 mg 11/02/20 09:00 11/08/20 09:06 Atorvastatin 40 Mg Tablet FEED TUBE 80 mg DAILY VISHAL Administration Dextrose 12.5 gm 11/03/20 14:40 Dextrose 50% 25 Gm/50 Ml Syringe IV PUSH PRN PRN Hypoglycemia Protocol Enoxaparin Sodium 40 mg 11/02/20 09:00 11/08/20 09:06 Enoxaparin 40 Mg/0.4 Ml Syringe SUB-Q 40 mg DAILY VISHAL Administration Escitalopram Oxalate 10 mg 11/02/20 09:00 11/08/20 09:06 Escitalopram Oxalate 10 Mg Tablet FEED TUBE 10 mg DAILY VISHAL Administration Glucagon 1 mg 11/03/20 14:40 Glucagon For Inj 1 Mg Vial IM PRN PRN Hypoglycemia Protocol Glucose 15 gm 11/03/20 14:40 Glucose Oral Gel 15 Gm Of Glucse In 37.5 Gm Tube PO PRN PRN Hypoglycemia Protocol Guaifenesin 300 mg 11/01/20 23:31 Guaifenesin 200 Mg/10 Ml Udc PO Q4H PRN Cough Hydralazine HCl 10 mg 11/04/20 13:33 11/05/20 23:00 Hydralazine Hcl 20 Mg/Ml Vial IV PUSH 10 mg Q8H PRN Administration Blood Pressure - High Piperacillin/Tazobactam/Dextrose 3.375 gm in 50 mls @ 100 mls/hr 11/03/20 12:00 11/08/20 12:51 Zosyn 3.375 Gm/D5w 50ml Pm IVPB 100 mls/hr Q6H VISHAL Administration Dextrose 1,000 mls @ 100 mls/hr 11/03/20 14:40 Dextrose 5% 1,000 Ml IVPB PRN P
--- NOTE | 2020-11-08 15:00 | PM.IMPN ---
Progress Note: A&P Assessment and Plan (1) Acute respiratory failure with hypoxia: Code(s): J96.01 - Acute respiratory failure with hypoxia Status: Acute Assessment and Plan: Suspect secondary to aspiration pneumonia. CTA chest demonstrates WILMAR airspace disease. Continue supplemental oxygen and wean as tolerated to keep O2 saturations > 90%. Respiratory status overall unchanged today. 11/08/20 15:00 Patient 80 year female a resident of nursing patient is minimally oriented nonverbal patient was sent to emergency department with shortness of breath and increased confusion initially patient was started Rocephin and azithromycin for possible pneumonia, patient was tested for COVID 11/01 is negative, CT of the chest was not very conclusive for pneumonia, patient blood culture is growing E coli with ESBL and and sensitive Zosyn, was started on Zosyn, patient was seen by Dr. lackey and suspect E coli most likely UTI source recommended to continue antibiotic total of 6/7 days, on 11/06/20 patient sodium was rising, free water flushes were increase but its not improving, D5W 50cc per hour and monitor her sodium levels it drop from 161 to 157 later in the afternoon, we held D5W, on morning of 11/07/20 sodium is 155 resumed D5W at 50cc per hour today 11/08/20 her sodium is 151 will conitinue D5W, and will monitor goal is not to drop sodium 4mm in 24hrs, unfortunately patient unable to provide any review of symptom will continue the present management, patient will complete her IV abx tomorrow, and further recommendation to follow (2) Pneumonia: Qualifiers: Laterality: bilateral Lung location: unspecified part of lung Pneumonia type: due to unspecified organism Qualified Code(s): J18.9 - Pneumonia, unspecified organism Code(s): J18.9 - Pneumonia, unspecified organism Status: Acute Assessment and Plan: With history of aspiration. On G tube feeds. Daughter tells me she vomited 3 times 12/28 at correction. Aspiration PNA is suspected. Was treated with 2 days of azithromycin and rocephin. Given her multi-drug resistant UTI/bacteremia and suspected aspiration, switched to broad spectrum renally-dosed IV zosyn 11/03 (day 2), see above. (3) Septicemia: Code(s): A41.9 - Sepsis, unspecified organism Status: Acute Assessment and Plan: Sepsis criteria met with leukocytosis and tachycardia on arrival. Urinary source is most likely, cannot exclude pulmonary source. Urine and blood cultures with ESBL E coli. Continue IV Zosyn (day 2) and appreciate infectious disease consultation in this setting. Monitor vital signs and urine output. (4) UTI (urinary tract infection): Qualifiers: Urinary tract infection type: site unspecified Hematuria presence: without hematuria Qualified Code(s): N39.0 - Urinary tract infection, site not specified Code(s): N39.0 - Urinary tract infection, site not specified Status: Acute Assessment and Plan: See above. (5) Gastrostomy tube in place: Code(s): Z93.1 - Gastrostomy status Status: Acute Assessment and Plan: Continue continuous G tube feeds overnight per correction records. All medications through G tube. detention G-tube feedings were with Osmolite 1.5 at 70 mL/hr from 6PM. to 8AM; given hyperglycemia and elevated Hgb A1c, will change tonight to Glucerna 1.2 at 90 mL/hr which is less calorie dense, thus free water flushes are decreased to 60mL q4hr. Discussed with dietitian 11/04 for her recommendations. (6) Brain aneurysm: Code(s): I67.1 - Cerebral aneurysm, nonruptured Status: Acute Assessment and Plan: Remote history of brain ane
[2020-11-08 17:49] LABS: Glucose Point of Care 179 (65-105)
[2020-11-08 21:43] LABS: Glucose Point of Care 151 (65-105)
[2020-11-08 23:59] LABS: Glucose Point of Care 152 (65-105)
[2020-11-09] VITALS (9 sets, daily range): BP systolic 122–129; BP diastolic 47–49; PULSE 83–92; RESP 18–20; TEMP 36.8–36.9; O2SAT 92–95
--- NOTE | 2020-11-09 03:44 | PCRCNOTE ---
Window of time for administration has passed. See next scheduled administration.
[2020-11-09] MEDS: ALBUTEROL SULFATE NEB 2.5 MG/0.5 ML INH 5 MG INHALATION ×3 (03:48→13:57)
[2020-11-09 04:11] LABS: Glucose Point of Care 164 (65-105)
[2020-11-09] MEDS: LANSOPRAZOLE ORAL SUSP 30 MG/10 ML ORAL.SUSP FEED TUBE (06:19)
[2020-11-09 06:43] LABS: Basophils Percent Auto 0.3 % (0.2-1.2); Eosinophils Absolute Auto 0.6 K/mm3 (0-0.3); Eosinophils Percent Auto 5.5 % (0-4.4); Hematocrit 38.6 % (37.0-47.0); Hemoglobin 11.4 g/dL (12.0-15.0); Immature Granulocyte Absolute 0.06 K/mm3 (0.00-0.031); Immature Granulocyte Percent A 0.5 % (0-0.5); Lymphocytes Absolute Auto 1.99 K/mm3 (0.9-3.2); Lymphocytes Percent Auto 17.2 % (18.3-44.2); Mean Corpuscular HGB Conc 29.5 g/dl (32-36); Mean Corpuscular Volume 94.8 fl (80-100); Mean Platelet Volume 11.7 fl (7.4-10.4); Monocytes Absolute Auto 0.3 K/mm3 (0.1-0.6); Monocytes Percent Auto 2.9 % (2.6-8.5); Neutrophils Absolute Auto 8.5 K/mm3 (1.3-6.7); Neutrophils Percent Auto 73.6 % (45.5-73.1); Platelet Count Result 270 k/mm3 (150-375); Red Blood Count 4.07 M/mm3 (4.2-5.4); Red Cell Distribution Width 14.2 % (11.5-14.5); White Blood Count 11.6 K/mm3 (4.5-10.0)
[2020-11-09 07:09] LABS: Anion Gap 6 mmol/L (8-16); Blood Urea Nitrogen 27 mg/dL (7-17); Calcium 8.5 mg/dL (8.4-10.2); Carbon Dioxide 26 mmol/L (22-30); Chloride 113 mmol/L (98-107); Estimated CRCL calculation 52 ml/min; Estimated Glomerular Filt Rate > 60; Glucose 183 mg/dL (65-105); Potassium 3.9 mmol/L (3.4-5.0); Sodium 145 mmol/L (137-145)
[2020-11-09 08:39] LABS: Glucose Point of Care 170 (65-105)
[2020-11-09] MEDS: ESCITALOPRAM OXALATE 10 MG TABLET FEED TUBE (08:57)
[2020-11-09] MEDS: ATORVASTATIN 40 MG TABLET 80 MG FEED TUBE (08:57)
[2020-11-09] MEDS: amLODIPine BESYLATE 5 MG TABLET FEED TUBE (08:57)
[2020-11-09] MEDS: ENOXAPARIN 40 MG/0.4 ML SYRINGE SUB-Q (08:57)
[2020-11-09] MEDS: MULTIVIT W/ IRON, MINERALS 15 ML LIQUID (*BKC) FEED TUBE (08:58)
[2020-11-09] MEDS: rifAXIMin 550 MG TABLET FEED TUBE (08:58)
[2020-11-09] MEDS: INSULIN GLARGINE (*BKC) 100 UNITS/ML 12 UNITS SUB-Q (09:04)
--- NOTE | 2020-11-09 11:41 | PM.DS ---
DS: Admitting Diagnosis Admitting Diagnosis Admitting Diagnosis: Respiratory distress, tachypnea and using abdominal muscles DS: Discharge Diagnosis Discharge Diagnosis (1) Acute respiratory failure with hypoxia: Code(s): J96.01 - Acute respiratory failure with hypoxia Status: Acute Assessment and Plan: Suspect secondary to aspiration pneumonia. CTA chest demonstrates WILMAR airspace disease. Continue supplemental oxygen and wean as tolerated to keep O2 saturations > 90%. Respiratory status overall unchanged today. 11/08/20 15:00 Patient 80 year female a resident of nursing patient is minimally oriented nonverbal patient was sent to emergency department with shortness of breath and increased confusion initially patient was started Rocephin and azithromycin for possible pneumonia, patient was tested for COVID 11/01 is negative, CT of the chest was not very conclusive for pneumonia, patient blood culture is growing E coli with ESBL and and sensitive Zosyn, was started on Zosyn, patient was seen by Dr. lackey and suspect E coli most likely UTI source recommended to continue antibiotic total of 6/7 days, on 11/06/20 patient sodium was rising, free water flushes were increase but its not improving, D5W 50cc per hour and monitor her sodium levels it drop from 161 to 157 later in the afternoon, we held D5W, on morning of 11/07/20 sodium is 155 resumed D5W at 50cc per hour today 11/08/20 her sodium is 151 will conitinue D5W, and will monitor goal is not to drop sodium 4mm in 24hrs, unfortunately patient unable to provide any review of symptom will continue the present management, patient will complete her IV abx tomorrow, and further recommendation to follow (2) Pneumonia: Qualifiers: Laterality: bilateral Lung location: unspecified part of lung Pneumonia type: due to unspecified organism Qualified Code(s): J18.9 - Pneumonia, unspecified organism Code(s): J18.9 - Pneumonia, unspecified organism Status: Acute Assessment and Plan: With history of aspiration. On G tube feeds. Daughter tells me she vomited 3 times 11/01 at residential. Aspiration PNA is suspected. Was treated with 2 days of azithromycin and rocephin. Given her multi-drug resistant UTI/bacteremia and suspected aspiration, switched to broad spectrum renally-dosed IV zosyn 11/03 (day 2), see above. (3) Septicemia: Code(s): A41.9 - Sepsis, unspecified organism Status: Acute Assessment and Plan: Sepsis criteria met with leukocytosis and tachycardia on arrival. Urinary source is most likely, cannot exclude pulmonary source. Urine and blood cultures with ESBL E coli. Continue IV Zosyn (day 2) and appreciate infectious disease consultation in this setting. Monitor vital signs and urine output. (4) UTI (urinary tract infection): Qualifiers: Hematuria presence: without hematuria Urinary tract infection type: site unspecified Qualified Code(s): N39.0 - Urinary tract infection, site not specified Code(s): N39.0 - Urinary tract infection, site not specified Status: Acute Assessment and Plan: See above. (5) Gastrostomy tube in place: Code(s): Z93.1 - Gastrostomy status Status: Acute Assessment and Plan: Continue continuous G tube feeds overnight per residential records. All medications through G tube. [facility] G-tube feedings were with Osmolite 1.5 at 70 mL/hr from 6PM. to 8AM; given hyperglycemia and elevated Hgb A1c, will change tonight to Glucerna 1.2 at 90 mL/hr which is less calorie dense, thus free water flushes are decreased to 60mL q4hr. Discussed with dietitian 11/04 for her recommendations. (6) Brain aneurysm:
--- NOTE | 2020-11-09 12:13 | PC.NURSE ---
Report called to Juhi at [facility].
[2020-11-09 12:40] LABS: Glucose Point of Care 160 (65-105)
== END 2020-11-09 16:35 | DRG 871 ==
LOC: ANHED 18:02 → ANH3MEDSUR 21:19
PROVIDERS: Emergency Medicine; Family Medicine; Admitting Provider Student in an Organized Health Care Education/Training Program; Emergency Provider Emergency Medicine; PCP Family Medicine; Visit Provider Physician Assistant
DX: A41.51 Sepsis due to Escherichia coli [E. coli] (principal); J96.01 Acute respiratory failure with hypoxia; J69.0 Pneumonitis due to inhalation of food and vomit; N39.0 Urinary tract infection, site not specified; E87.0 Hyperosmolality and hypernatremia; R91.8 Other nonspecific abnormal finding of lung field; B94.8 Sequelae of other specified infectious and parasitic diseases; Z20.822 Contact with and (suspected) exposure to COVID-19; J84.10 Pulmonary fibrosis, unspecified; B96.89 Other specified bacterial agents as the cause of diseases classified elsewhere; E78.5 Hyperlipidemia, unspecified; I10 Essential (primary) hypertension; R73.9 Hyperglycemia, unspecified; F03.90 Unspecified dementia, unspecified severity, without behavioral disturbance, psychotic disturbance, mood disturbance, and anxiety; R32 Unspecified urinary incontinence; K21.9 Gastro-esophageal reflux disease without esophagitis; Z66 Do not resuscitate; Z93.1 Gastrostomy status; Z86.73 Personal history of transient ischemic attack (TIA), and cerebral infarction without residual deficits; Z87.820 Personal history of traumatic brain injury; Z98.42 Cataract extraction status, left eye; Z98.41 Cataract extraction status, right eye; Z90.710 Acquired absence of both cervix and uterus; Z87.891 Personal history of nicotine dependence
CPT/HCPCS: 36415; 36600; 51701; 70450; 71045; 71275; 80048; 80053; 81001; 82728; 82805; 83036; 83605; 83615; 83735; 84100; 85025; 85027; 85055; 85380; 86140; 87040; 87077; 87086; 87088; 87186; 87635; 93005; 94640; 96365; 96368; 99291; A9270; C9803; J0131; J0360; J0456; J0696; J1650; J1815; J1940; J2543; J7030; J7070; Q9967; U0003

== ENCOUNTER 2020-11-13 15:56 | Emergency (ER) | payer MEDICARE, MEDICAID, SELFPAY ==
--- NOTE | ~2020-11-13 | CT_ITS ---
EXAMINATION: CT brain wo con DATE: 11/13/2020 16:55 INDICATION: Head injury. TECHNIQUE: Computed tomography (CT) of the head was performed without intravenous contrast. The mA wa s adjusted according to patient size. Iterative reconstruction technique was employed. The dose-lengt h product was 311.55 mGy-cm. COMPARISON: Head CT 11/01/2020 FINDINGS: There is chronic encephalomalacia in the frontal lobes, right worse than left. There are ol d lacunar infarcts in the right basal ganglia. There is chronic encephalomalacia in the cerebellum at the midline with changes of craniotomy and aneurysm clip. Hypodense subdural hematomas overlie the c erebrum bilaterally measuring up to 8 mm in thickness on the right and 8 mm in thickness on the left. There is no acute ischemic infarct or abnormal mass lesion. There is ex vacuo dilatation of fourth v entricle. There is a right frontal ventriculostomy catheter with tip in frontal horn of right lateral ventricle. The mastoid air cells are normal. The paranasal sinuses are clear. There are likely soriano es of ocular lens replacement surgeries. IMPRESSION: 1. Chronic encephalomalacia involving the frontal lobes and cerebellum. 2. Stable chronic bilateral subdural hematomas. 3. Old lacunar infarcts in the right basal ganglia. 4. Mild nonspecific cerebral white matter disease, which likely represents chronic small vessel ische roxanne disease. 5. Unchanged size of the ventricles with ventriculostomy catheter in unchanged position. Reviewed, dictated and finalized at location A. AL EFFECTS EDITOR IMPRESSION: 1. Chronic encephalomalacia involving the frontal lobes and cerebellum. 2. Stable chronic bilateral subdural hematomas. 3. Old lacunar infarcts in the right basal ganglia. 4. Mild nonspecific cerebral white matter disease, which likely represents wreath maker korey small vessel ischemic disease. 5. Unchanged size of the ventricles with ventriculostomy catheter in unchanged position.
--- NOTE | ~2020-11-13 | CT_ITS ---
EXAMINATION: CT cervical spine wo con DATE: 11/13/2020 16:55 INDICATION: Neck injury. TECHNIQUE: Computed tomography (CT) of the cervical spine was performed without intravenous contrast. Automated exposure control and iterative reconstruction technique were employed. The dose-length pro duct was 311.55 mGy-cm. COMPARISON: CT cervical spine 11/12/2016 FINDINGS: There is mild scarring at the lung apices. There is a ventriculoatrial catheter on the righ t. There is 2 mm anterolisthesis of C4 on C5. There is 6 degrees dextrocurvature of cervical spine. V ertebral body heights are normal. There is mildly decreased disc height at C3-C4 and C4-C5 and modera tely decreased disc height at C5-C6 and C6-C7. The following disc levels are specifically discussed: C2-C3: There is no uncovertebral joint osteoarthritis. There is severe bilateral facet joint osteoart hritis. There is mild bilateral neural foraminal stenosis. There is no central canal stenosis. C3-C4: There is no uncovertebral joint osteoarthritis. There is moderate right facet joint osteoarthr itis. There is ankylosis of left facet joint with severe hypertrophy. There is mild left neural fanny inal stenosis. There is no central canal stenosis. C4-C5: There is no uncovertebral joint osteoarthritis. There is moderate right and severe left facet joint osteoarthritis. There is moderate left neural foraminal stenosis. There is mild central canal s tenosis. C5-C6: There is severe right and moderate left uncovertebral joint osteoarthritis. There is mild bila teral facet joint osteoarthritis. There is moderate right and mild left neural foraminal stenosis. Th ere is mild central canal stenosis. C6-C7: There is severe bilateral uncovertebral joint osteoarthritis. There is severe bilateral facet joint osteoarthritis. There is mild bilateral neural foraminal stenosis. There is mild central canal stenosis. C7-T1: There is no uncovertebral joint osteoarthritis. There is severe bilateral facet joint osteoart hritis. There is mild bilateral neural foraminal stenosis. There is no central canal stenosis. IMPRESSION: 1. No fracture. 2. Severe cervical spondylosis. Reviewed, dictated and finalized at location A. F TRAINER
[2020-11-13 16:01] VITALS: BP 152/73; PULSE 81; RESP 20; TEMP 36.8; O2SAT 100
[2020-11-13 17:27] VITALS: BP 152/67; PULSE 79; RESP 20; O2SAT 97
--- NOTE | 2020-11-13 18:00 | ED.FALL ---
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 Patient on arrival with C-spine immobilization in the room in no distress patient is nonverbal and cannot provide history patient's daughter is present Related Data Home Medications Medication Instructions Recorded Confirmed atorvastatin 80 mg FEEDING TUBE DAILY 01/08/20 11/01/20 escitalopram oxalate 10 mg FEEDING TUBE DAILY 01/08/20 11/01/20 furosemide 40 mg FEEDING TUBE DAILY 01/08/20 11/01/20 multivitamin with minerals 15 ml FEEDING TUBE DAILY 01/09/20 11/01/20 Xifaxan 550 mg FEEDING TUBE BID 08/18/20 11/01/20 lactulose [Enulose] 30 g FEEDING TUBE QID 08/18/20 11/01/20 omeprazole 20 mg FEEDING TUBE DAILY 08/18/20 11/01/20 guaifenesin 300 mg PO Q4H PRN 11/01/20 11/01/20 Allergies Allergy/AdvReac Type Severity Reaction Status Date / Time No Known Allergies Allergy Verified 11/13/20 16:07 Review of Systems Review of Systems: ROS unobtainable: Yes unobtainable due to medical condition [facility] Past Medical History Medical History Abnormal gag reflex Partial paralysis Aspiration pneumonia Bilateral artificial lens implant Bilateral cataracts Brain aneurysm With BROMINATION EQUIPMENT OPERATOR shunt in place Brain bleed CVA (cerebral vascular accident) Dementia Depression Gastrostomy tube in place HLD (hyperlipidemia) HTN (hypertension) Incontinence Skin lesion lt nose Subarachnoid hemorrhage Subdural hematoma TBI (traumatic brain injury) Surgical History Surgical History Angle recession of both eyes History of appendectomy 1953 History of bilateral cataract extraction 2006 History of hysterectomy History of tonsillectomy BROMINATION EQUIPMENT OPERATOR (ventriculoperitoneal) shunt status Family History Family History Mother Dementia Father No problems noted. Social History Social History Social History: Ms. Chamberlain is a resident of [facility]. Her daughter Lucille is her surrogate decision maker. She is a DNR. Smoking status: Former smoker Tobacco type: cigarettes Additional smoking assessment comments: Quit smoking years ago Alcohol intake: never Substance use: unknown Gender identity (if verbalized by the patient): Female Spiritual care concerns: No Agree to blood products: Yes Exam Narrative: Exam Narrative: GENERAL: Well-appearing, well-nourished, and in no acute distress. HEAD: Normocephalic, atraumatic. EYES: PERRLA and EOMI. ENT: Nares clear, no rhinorrhea or epistaxis. Mucous membranes moist. CHEST: Clear to auscultation. No respiratory distress. No wheezes rales or rhonchi HEART: Regular rate and rhythm. Normal peripheral pulses. ABDOMEN: Soft, nontender, nondistended EXTREMITIES: Normal range of motion. No edema. SKIN: Warm, dry, no rash. NEURO: Patient lying in the bed no distress nonverbal orients to verbal stimulation Course Course Emergency Course: Patient in the room aware of case findings treatment plan diagnosis had CT imaging will be discharged back to group home family is aware of the case findings treatment plan and comfortable with the patient being sent back Vital Signs Vital signs: Vital Signs Temperature 98.2 F 11/13/20 16:01
[2020-11-13 18:36] VITALS: BP 134/55; PULSE 92; RESP 20; O2SAT 95
[2020-11-13 18:43] VITALS: BP 134/55; PULSE 80; RESP 20; O2SAT 95
== END 2020-11-13 19:27 ==
PROVIDERS: Emergency Provider Emergency Medicine; PCP Family Medicine
DX: S09.90XA Unspecified injury of head, initial encounter (principal); F03.90 Unspecified dementia, unspecified severity, without behavioral disturbance, psychotic disturbance, mood disturbance, and anxiety; E78.5 Hyperlipidemia, unspecified; I10 Essential (primary) hypertension; F32.9 Major depressive disorder, single episode, unspecified; Z87.820 Personal history of traumatic brain injury; Z86.73 Personal history of transient ischemic attack (TIA), and cerebral infarction without residual deficits; Z98.42 Cataract extraction status, left eye; Z98.41 Cataract extraction status, right eye; Z96.1 Presence of intraocular lens; Z98.2 Presence of cerebrospinal fluid drainage device; Z93.1 Gastrostomy status; Z66 Do not resuscitate; Z87.891 Personal history of nicotine dependence; M47.812 Spondylosis without myelopathy or radiculopathy, cervical region; R90.82 White matter disease, unspecified; W05.0XXA Fall from non-moving wheelchair, initial encounter
CPT/HCPCS: 70450; 72125; 99284

== ENCOUNTER 2020-12-19 07:05 | Inpatient (IN) | payer MEDICARE, MEDICAID, SELFPAY ==
[2020-12-19] VITALS (26 sets, daily range): BP systolic 74–152; BP diastolic 30–67; PULSE 106–138; RESP 22–40; TEMP 36.5–39.6; O2SAT 88–100; BMI 29.3
--- NOTE | ~2020-12-19 | XR_ITS ---
EXAMINATION: XR retrograde pyelo w/stent RT DATE: 12/19/2020 14:12 INDICATION: Obstructive right pyelonephritis with severe sepsis. Renal calculus. TECHNIQUE: 3 fluoroscopic images of the right abdomen were obtained during procedure performed by Dr. Fields. Radiologist was not present for the imaging or procedure. The amount of fluoroscopy time used during this procedure was 0.3 minutes. COMPARISON: CT dated 12/19/2020 FINDINGS: There is persistent contrast in the right renal collecting system with delayed right nephrogram consi stent with obstructive hydronephrosis and on prior CT . Final image demonstrates a ureteral stent adv anced into the right renal pelvis. IMPRESSION: 1. Fluoroscopy utilized during placement of a right internal ureteral stent for obstructive hydroneph rosis. See procedure note for further detail. Reviewed, dictated and finalized at location A. ET RISK ANALYST IMPRESSION: 1. Fluoroscopy utilized during placement of a right internal ureteral stent for obstructive hydronephrosis. See procedure note for further detail.
--- NOTE | ~2020-12-19 | CT_ITS ---
EXAMINATION: CTA chest abdomen pelvis DATE: 12/19/2020 09:46 INDICATION: Respiratory distress. Hypoxia. Vomiting. Fever. TECHNIQUE: Computed tomography (CT) of the chest, abdomen, and pelvis was performed with 100 cc Omnip aque 350 intravenous contrast. Automated exposure control and iterative reconstruction technique were employed. Exam dose: 1302.01 mGy-cm total exam DLP. COMPARISON: 12/19/2020 portable AP chest 11/01/2020 CT pulmonary scan FINDINGS: CHEST CT: There is aortic, great vessel and coronary artery calcification. No thoracic aortic aneurysm or disse ction. Cardiomegaly. No pericardial effusion. Bilateral thyroid hypoenhancing lesions, measuring up to approximately 11 mm maximal size on the righ t. No hilar or mediastinal mass lesion. Mild bilateral hilar and mediastinal lymph node prominence is li gela reactive. Bilateral lower lobe and primarily dependent infiltrate and/atelectasis, greater on the right. 2.5 cm right breast mass; diagnostic mammogram and right breast ultrasound examination are recommende d.. ABDOMEN/PELVIS CT: Probably calcified 9.5 mm x 11.8 gallstone is noted in the dependent aspect of the body of the gallbl adder. No hepatic space-occupying mass lesion is evident. Hepatic steatosis. Normal splenic size. No bile duct or pancreatic duct dilatation. No pancreatic mass lesion or calcification. Normal morphology of the adrenal glands. Approximately 3 x 10 mm calculus or calculi at the right ureteropelvic junction with moderate right h ydronephrosis. Lower pole right renal calculus or calculi are suggested. Examination is limited due t o motion. There is perinephric fluid. No left urinary tract calculus or left hydroureteronephrosis. There is atherosclerotic calcification of the abdominal aorta and iliac arteries but no aneurysm. Pessary device is noted. The urinary bladder is evacuated. Diverticulosis of the sigmoid colon; no CT evidence of diverticulitis. No bowel obstruction, bowel wa ll thickening, pneumatosis or intraperitoneal free air is detected. No suspicious osteolytic or osteoblastic lesions are noted. IMPRESSION: Cardiomegaly Bilateral thyroid masses measuring up to 11 mm 2. 0.5 cm right breast mass; diagnostic mammogram and right breast ultrasound examination are recomme nded Bilateral lower lobe infiltrate and/atelectasis, right greater than left, with probable mild bilatera l hilar and mediastinal reactive lymph node noted prominent Cholelithiasis Hepatic steatosis Right nephrolithiasis Probable obstructing 3 x 10 mm calculus or calculi at right ureteropelvic junction with moderate righ t hydronephrosis Diverticulosis of the sigmoid colon Reviewed, dictated and finalized at [facility]. Reviewed, dictated and finalized at location A. ARY CIRCULATION CLERK IMPRESSION: Cardiomegaly Bilateral thyroid masses measuring up to 11 mm 2. 0.5 cm right breast mass; diagnostic mammogram and right breast ultrasound e xamination are recommended Bilateral lower lobe infiltrate and/atelectasis, right greater than left, with probable mild bilateral hilar and mediastinal reactive lymph node noted promine nt Cholelithiasis Hepatic steatosis Right nephrolithiasis Probable obstructing 3 x 10 mm calculus or calculi at right ureteropelvic junct ion with moderate right hydronephrosis Diverticulosis of the sigmoid colon
--- NOTE | ~2020-12-19 | XR_ITS ---
XR chest 1V DATE: 12/19/2020 08:11 INDICATION: Hypoxia, tachypnea TECHNIQUE: AP chest on December 19, 2020 0810 hours COMPARISON: 11/01/2020 CT pulmonary scan 11/01/2020 portable AP chest FINDINGS: There are diminished but residual infiltrates and/or atelectasis in the lower lung zones. Cardiac megaly. Aortic calcification. No pleural effusion or pneumothorax is evident. Right ventricular atrial shunt catheter is noted. Diffuse osteopenia IMPRESSION: Residual but diminished bilateral lower lung infiltrates and/atelectasis since 11/01/2020 Reviewed, dictated and finalized at location A. L HEATER IMPRESSION: Residual but diminished bilateral lower lung infiltrates and/atelec tasis since 11/01/2020
--- NOTE | ~2020-12-19 | CT_ITS ---
EXAMINATION: CT brain wo con DATE: 12/19/2020 08:14 INDICATION: Decreased responsiveness TECHNIQUE: Computed tomography (CT) of the head was performed without intravenous contrast. The mA wa s adjusted according to patient size. Iterative reconstruction technique was employed. Exam dose: 68 1.00 mGy-cm total exam DLP. COMPARISON: 11/13/2020 CT brain FINDINGS: Again noted is postoperative change including midline occipital craniotomy and clip in the posterior fossa. There are chronic bilateral cerebellar infarcts, right greater than left frontal infarcts. There are severe bilateral vertebral artery, basilar artery and carotid siphon and supraclinoid inter nal carotid artery calcifications. There is nonspecific diminished attenuation in the subcortical and periventricular cerebral white matter, likely due to chronic small vessel ischemic changes. Ventriculostomy catheter is again noted in the right frontal horn. No ventricular dilatation. 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 IMPRESSION: No acute finding or significant change since 11/13/2020 Reviewed, dictated and finalized at [facility]. Reviewed, dictated and finalized at location A. S CLEANER
--- NOTE | ~2020-12-19 | XR_ITS ---
EXAMINATION: XR chest 1V portable INDICATION: Septic shock TECHNIQUE: Portable AP chest at 0519 hours COMPARISON: 12/20/2020 FINDINGS: Bibasilar opacities persist but have improved. There is no pleural effusion or pneumothorax . Cardiomegaly is noted. IMPRESSION: 1. Persistent but improved bibasilar airspace opacities, consistent with atelectasis versus pneumonia . Reviewed, dictated and finalized at location A. ELLA REPAIRER IMPRESSION: 1. Persistent but improved bibasilar airspace opacities, consistent with atelec tasis versus pneumonia.
--- NOTE | ~2020-12-19 | US_ITS ---
US breast RT limited 12/20/2020 10:08 Indication: Right breast mass seen on recent CT examination. Ultrasound evaluation requested. Procedure: High-resolution Limited ultrasound of the right breast Comparison: CT dated 12/19/2020 Findings: At 12:00, 4 cm from the nipple, there is a simple cyst measuring 2.7 cm greatest dimension corresponding to the mass identified on CT examination. No suspicious masses to suggest malignancy. Impression: 1: No sonographic evidence for malignancy in the right breast. Benign cysts. Routine yearly screening mammogram and regular clinical breast examination are recommended. BI-RADS CATEGORY 2 - BENIGN FINDINGS Reviewed, dictated and finalized at location A. NNED AIRCRAFT SYSTEMS ROBOTICIST Impression: 1: No sonographic evidence for malignancy in the right breast. Benign cysts. Routine yearly screening mammogram and regular clinical breast examination are recommended. BI-RADS CATEGORY 2 - BENIGN FINDINGS
--- NOTE | ~2020-12-19 | XR_ITS ---
XR chest 1V portable DATE: 12/20/2020 08:46 INDICATION: Septic shock TECHNIQUE: Portable AP chest ON December 20, 2020 0845 hours COMPARISON: December 19, 2020 AP chest at 0810 hours December 19, 2020 CTA chest abdomen pelvis FINDINGS: Right ventricular atrial shunt catheter. Cardiomegaly. Aortic calcification. There is pulmonary vascular congestion and redistribution. There is prominence of the minor fissure c onsistent with subpleural edema. Bilateral mid and lower lung field infiltrates may be consistent with pulmonary edema and pneumonia. Bibasilar infiltrate and/atelectasis. No pneumothorax. Diffuse osteopenia. IMPRESSION: Congestive changes Bilateral infiltrates, increased since December 19, 2020 Reviewed, dictated and finalized at location A. INAL SYSTEM OPERATOR
--- NOTE | ~2020-12-19 | US_ITS ---
EXAMINATION: US thyroid DATE: 12/20/2020 10:08 INDICATION: Thyroid nodules on CT TECHNIQUE: Multiple ultrasound images of the thyroid were obtained. COMPARISON: 11/13/2020 FINDINGS: The right thyroid lobe measures 4.2 x 2.1 x 2.0 cm. The left thyroid lobe measures 3.5 x 1.6 x 1.0 c m. There are bilateral likely benign TI RADS 1 anechoic cystic or nearly entirely cystic nodules in both the right and left thyroid lobes measure up to 1.4 cm in maximal diameter on the right and 7 mm on the left. There is increased echogenicity and coarsened echotexture throughout the bilateral thyro id lobes. IMPRESSION: 1. Multiple likely benign cystic or nearly entirely cystic bilateral thyroid nodules which do not alesia t consensus criteria for either biopsy or follow-up. Reviewed, dictated and finalized at location A. STOCK BREEDER IMPRESSION: 1. Multiple likely benign cystic or nearly entirely cystic bilateral thyroid no dules which do not meet consensus criteria for either biopsy or follow-up.
--- NOTE | ~2020-12-19 | XR_ITS ---
EXAMINATION: XR chest 1V portable INDICATION: Septic shock TECHNIQUE: Portable AP chest at 0516 hours COMPARISON: 12/21/2020 FINDINGS: Bibasilar airspace opacities persist without significant change, left greater than right. N o pleural effusion or pneumothorax is identified. Cardiomegaly is noted. The right internal jugular c atheter ends with its tip in the proximal right atrium. IMPRESSION: 1. Stable bibasilar airspace opacities, consistent with atelectasis versus pneumonia. Reviewed, dictated and finalized at location A. ONICS ENGINEERING TECHNOLOGIST IMPRESSION: 1. Stable bibasilar airspace opacities, consistent with atelectasis versus pneu monia.
--- NOTE | 2020-12-19 07:16 | ECG_ITS ---
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
[2020-12-19 07:36] LABS: Glucose Point of Care 194 (65-105)
[2020-12-19 07:45] LABS: Hematocrit 46.1 % (37.0-47.0); Hemoglobin 14.8 g/dL (12.0-15.0); Mean Corpuscular HGB Conc 32.1 g/dl (32-36); Mean Corpuscular Hemoglobin 29.4 pg (26-34); Mean Corpuscular Volume 91.7 fl (80-100); Platelet Count Result 228 k/mm3 (150-375); Red Blood Count 5.03 M/mm3 (4.2-5.4); Red Cell Distribution Width 14.2 % (11.5-14.5); White Blood Count 10.8 K/mm3 (4.5-10.0)
[2020-12-19 07:47] LABS: Alveolar/Arterial O2 Gradient 123.3 mmHg; Base Excess ABG -2.1 mEq/l (+/-2.0); Device NASAL CANNULA; Fractional Inspired Oxygen 32 %; HCO3 ABG 21.3 mEq/l (22.0-26.0); Oxygen Content ABG 19.3 %vol (16.0-22.0); Oxygen Saturation ABG 93.9 % (95.0-100.0); Oxyhemoglobin 92.9 % THb (90.0-100.0); PCO2 ABG 32.7 mmHg (35.0-45.0); PO2 ABG 66.6 mmHg (80.0-100.0); PO2 FiO2 Ratio Arterial Blood 2.08 %; Site Drawn LEFT BRACHIAL; Total Hemoglobin 14.8 g/dL (12.0-18.0); pH ABG 7.431 (7.350-7.450)
[2020-12-19 07:57] LABS: Band Neutrophils Percent 20 % (0-6); Large Platelets Present; Lymphocytes Absolute Manual 1.18 K/mm3 (1.1-4.5); Metamyelocytes Percent 1 %; Monocytes Absolute Manual 0.21 K/mm3 (0.1-0.90); Monocytes Percent Manual 2 % (3-9); Neutrophils Absolute Manual 9.28 K/mm3 (1.7-7.2); Neutrophils Percent Manual 66 % (46-73); Platelet Estimate Adequate (Adequate); Total Cells Counted 100
[2020-12-19 07:58] LABS: Ammonia < 9 umol/L (9-30); INR 0.9
[2020-12-19 07:59] LABS: Partial Thromboplastin Time 30.3 SECONDS (22.3-36.8)
--- NOTE | 2020-12-19 07:59 | ED.AMS ---
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 EMS reports the [facility] day team found patient had decreased responsiveness when they were performing their rounds this morning. They report patient has left side deficits chronically, but she is not moving her right side today. They also report patient will normal open her eyes to verbal stimulus but today she is not responding . She was found to have oxygen saturation of 88% on room air in ER and she was also found to have a fever in ER. She is DNR. MD complaint: decreased responsiveness Related Data Home Medications Medication Instructions Recorded Confirmed atorvastatin 80 mg FEEDING TUBE DAILY 01/08/20 12/19/20 escitalopram oxalate 10 mg FEEDING TUBE DAILY 01/08/20 12/19/20 multivitamin with minerals 15 ml FEEDING TUBE DAILY 01/09/20 12/19/20 Xifaxan 550 mg FEEDING TUBE BID 08/18/20 12/19/20 omeprazole 20 mg FEEDING TUBE DAILY 08/18/20 12/19/20 guaifenesin 300 mg PO Q4H PRN 11/01/20 12/19/20 Allergies Allergy/AdvReac Type Severity Reaction Status Date / Time No Known Allergies Allergy Verified 12/19/20 07:27 Review of Systems Review of Systems: ROS unobtainable: Yes unobtainable due to medical condition PMFSH Past Medical History Medical History (Updated 12/19/20 @ 18:48 by Caroline Figueroa MD) Abnormal gag reflex Partial paralysis Aspiration pneumonia Bilateral artificial lens implant Bilateral cataracts Brain aneurysm With ELEMENTARY SCHOOL PROFESSIONAL shunt in place Brain bleed CVA (cerebral vascular accident) Dementia Depression DM2 (diabetes mellitus, type 2) Gastrostomy tube in place HLD (hyperlipidemia) HTN (hypertension) Incontinence Skin lesion lt nose Subarachnoid hemorrhage Subdural hematoma TBI (traumatic brain injury) Surgical History Surgical History (Updated 12/19/20 @ 15:16 by Bhavani Florez NP) Angle recession of both eyes History of appendectomy 1953 History of bilateral cataract extraction 2006 History of hysterectomy History of tonsillectomy S/P ureteral stent placement ELEMENTARY SCHOOL PROFESSIONAL (ventriculoperitoneal) shunt status Family History Family History Mother Dementia Father No problems noted. Social History Social History (Updated 12/19/20 @ 15:30 by Bhavani Florez NP) Social History: Ms. Chamberlain is a resident of [facility]. Her daughter Lucille is her surrogate decision maker. She is a DNR. According to her face sheet she is . she is retired. Smoking status: Former smoker Tobacco type: cigarettes Additional smoking assessment comments: Quit smoking years ago Alcohol intake: never Substance use: unknown Gender identity (if verbalized by the patient): Female Spiritual care concerns: No Agree to blood products: Yes Exam Const: General: ill appearing Other: intermittently open her eyes Eyes: Pupils: Equal, round and reactive pupils present Resp: Effort & Inspection: labored, no retractions and tachypneic Auscultation: rhonchi Cardio: Rate: tachycardic Rhythm: regular rhythm Heart sounds: no murmurs GI: GI Palp: Yes Soft to palpation, No Tenderness to palpation present (GI) and No Guarding due to palpation present (GI) Auscultation: normal bowel sounds Neuro: Other: no movement to extremities Course Reevaluation(s) Reevaluation #1: Patient's daughter is at bedside. I Discussed chest xray does not show any thing significant to explain fever, respiratory distress and hypoxia. She is agreeable to CTA to
[2020-12-19 08:00] LABS: Lactic Acid Reflex 6.4 mmol/L (0.7-2.1)
[2020-12-19 08:05] LABS: CRP 8.2 mg/dL (<1.0)
[2020-12-19 08:10] LABS: Albumin Level 4.5 g/dL (3.5-5.1); Alkaline Phosphatase 157 U/L (38-126); Anion Gap 16 mmol/L (8-16); Aspartate Amino Transferase 46 U/L (14-36); Bilirubin,Total 1.2 mg/dL (0.2-1.3); Blood Urea Nitrogen 31 mg/dL (7-17); Calcium 9.6 mg/dL (8.4-10.2); Carbon Dioxide 25 mmol/L (22-30); Chloride 99 mmol/L (98-107); Estimated CRCL calculation 44 ml/min; Estimated Glomerular Filt Rate 60; Glucose 223 mg/dL (65-105); Potassium 4.8 mmol/L (3.4-5.0); Sodium 140 mmol/L (137-145)
[2020-12-19 08:11] LABS: Troponin I < 0.012 ng/mL (0.000-0.034)
[2020-12-19 08:12] LABS: NT Pro B Type Natriuretic Pept 1090 PG/ML (5-100)
[2020-12-19] MEDS: SODIUM CHLORIDE 0.9% IV 1,000 ML 999 ML IV CONT ×2 (08:15→08:47)
[2020-12-19 08:24] LABS: Alanine Aminotransferase 29 U/L (4-35)
[2020-12-19 10:04] LABS: Add Urine Microscopic? YES; Appearance Urine Cloudy (Clear); Bacteria Urine Trace /hpf; Bilirubin Urine Negative (Negative); Blood Urine Negative (Negative); Color Urine Yellow (Yellow); Glucose Urine UA Negative (Negative); Ketones Urine Negative (Negative); Leukocyte Esterase Ur 1+ LEU/UL (Negative); Mucus Urine Rare /lpf; Nitrate Urine Negative (Negative); Protein Urine 2+ mg/dL (Negative); Specific Grav Ur 1.028 (1.001-1.035); Squamous Epithelial Cell Urine Rare /hpf (Few); Urobilinogen Urine Negative mg/dL (<2.0); WBC Clumps Urine Present /HPF; WBC Urine 31-50 /hpf
[2020-12-19] MEDS: ALBUTEROL SULFATE NEB 2.5 MG/0.5 ML INH 5 MG INHALATION (10:12)
[2020-12-19] MEDS: IPRATROPIUM BR 0.02% INH SOLN 0.5 MG/2.5 ML VIAL INHALATION (10:12)
[2020-12-19 10:45] LABS: Reflex Lactic Acid Yes or No Add Lactic
[2020-12-19 11:10] LABS: Lactic Acid 3.4 mmol/L (0.7-2.1)
--- NOTE | 2020-12-19 12:36 | WPDURCON ---
Assessment and Plan Assessment and plan (1) UTI (urinary tract infection): Qualifiers: Urinary tract infection type: site unspecified Hematuria presence: without hematuria Qualified Code(s): N39.0 - Urinary tract infection, site not specified Code(s): N39.0 - Urinary tract infection, site not specified Status: Acute (2) Obstruction of right ureteropelvic junction due to stone: Code(s): N20.1 - Calculus of ureter Status: Acute Assessment and Plan: Comorbid non communicative 80F with sepsis and a right UPJ stone, 1 cm. - Discussed options with daughter Lucille who discussed with her brother-- 1) comfort care and the expected outcome of in a few days, 2) IV antibiotics only and 3) ureteral stent placement in the OR. Discussed how procedure is performed. Discussed requirement for staged second surgery to clear the stone. After they were given time to discuss and ask questions, they decided to proceed with stent placement in the OR. IV sedation should be fine. Will need admission and IV antibiotics after surgery. Urology Consult Note HPI Date Seen: 12/19/20 Requesting Physician: Jarrell Sandra MD Primary Care Provider: Wero King MD Consult Narrative Narrative: Citlaly Joshua is a 80 year old female with multiple medical comorbidities. She presented for unresponsiveness and emesis. She was found to have a right UPJ stone, about 1 cm, with mild to moderate hydro. Urine not terrible but some inflammatory cells. She had COVID already in Sep. and has had both vaccines per report. Most of history obtained from daughter Lucille who is the [facility] at [phone]. Tachypneic, febrile, and tachycardic. Review of Systems Review of Systems: Narrative: unable to be obtained due to patient condition [facility] Past Medical History Medical History Abnormal gag reflex Partial paralysis Aspiration pneumonia Bilateral artificial lens implant Bilateral cataracts Brain aneurysm With MATERIAL CONTROLLER shunt in place Brain bleed CVA (cerebral vascular accident) Dementia Depression Gastrostomy tube in place HLD (hyperlipidemia) HTN (hypertension) Incontinence Skin lesion lt nose Subarachnoid hemorrhage Subdural hematoma TBI (traumatic brain injury) Surgical History Surgical History Angle recession of both eyes History of appendectomy 1953 History of bilateral cataract extraction 2006 History of hysterectomy History of tonsillectomy MATERIAL CONTROLLER (ventriculoperitoneal) shunt status Family History Family History Mother Dementia Father No problems noted. Social History Social History Social History: Ms. Chamberlain is a resident of [facility]. Her daughter Lucille is her surrogate decision maker. She is a DNR. Smoking status: Former smoker Tobacco type: cigarettes Additional smoking assessment comments: Quit smoking years ago Alcohol intake: never Substance use: unknown Gender identity (if verbalized by the patient): Female Spiritual care concerns: No Agree to blood products: Yes Meds Home Medications and Allergies Home Medications Medication Instructions Recorded Confirmed Type atorvastatin 80 mg FEEDING TUBE DAILY 01/08/20 11/01/20 History escitalopram oxalate 10 mg FEEDING TUBE DAILY 01/08/20 11/01/20 History multivitamin with minerals 15 ml FEEDING TUBE DAILY 01/09/20 11/01/20 History Xifaxan 550 mg FEEDING TUBE BID 08/18/20 11/01/20 History omeprazole 20 mg FEEDING TUBE DAILY 08/18/20 11/01/20 History guaifenesin 300 mg PO Q4H PRN 11/01/20 11/01/20 History amlodipine [Norvasc] 5 mg FEEDING TUBE QAM #30 tablet 11/09/20 Rx insulin glargine [Lantus U-100 12 unit SUBCUT QAM #10 ml 11/09/20 Rx Insulin] sodium
--- NOTE | 2020-12-19 13:20 | WPDANESEPP ---
Anes - Eval Pre Procedure Procedure: Operation Date: 12/19/20 13:10 Proposed Procedures p Cystoscopy with Stent Removal(Right) - Tony Fields MD Date/Time: 12/19/20 13:20 Pre Op Diagnosis: severe sepsis/UTI/ureteral calculus Patient Data Age: 80 Gender: F Height: 1.65 m Weight: 78.02 kg Last Vital Signs Temp 37.9 C H 12/19/20 08:45 Pulse 123 H 12/19/20 12:35 Resp 24 H 12/19/20 12:35 BP 123/58 L 12/19/20 12:35 Pulse Ox 98 12/19/20 12:35 Allergies Allergy/AdvReac Type Severity Reaction Status Date / Time No Known Allergies Allergy Verified 12/19/20 07:27 Home Medications Medication Instructions Recorded Confirmed Type atorvastatin 80 mg FEEDING TUBE DAILY 01/08/20 11/01/20 History escitalopram oxalate 10 mg FEEDING TUBE DAILY 01/08/20 11/01/20 History multivitamin with minerals 15 ml FEEDING TUBE DAILY 01/09/20 11/01/20 History Xifaxan 550 mg FEEDING TUBE BID 08/18/20 11/01/20 History omeprazole 20 mg FEEDING TUBE DAILY 08/18/20 11/01/20 History guaifenesin 300 mg PO Q4H PRN 11/01/20 11/01/20 History amlodipine [Norvasc] 5 mg FEEDING TUBE QAM #30 tablet 11/09/20 Rx insulin glargine [Lantus U-100 12 unit SUBCUT QAM #10 ml 11/09/20 Rx Insulin] sodium chloride [Saline Mist] 1 spray INTRANASAL Q6H PRN #1 spray 11/09/20 Rx Laboratory Tests 12/19/20 12/19/20 12/19/20 07:26 07:31 07:31 WBC 10.8 K/mm3 H K/mm3 (4.5-10.0) RBC 5.03 M/mm3 M/mm3 (4.2-5.4) Hgb 14.8 g/dL D g/dL (12.0-15.0) Hct 46.1 % % (37.0-47.0) MCV 91.7 fl fl (80-100) MCH 29.4 pg pg (26-34) MCHC 32.1 g/dl g/dl (32-36) RDW 14.2 % % (11.5-14.5) Plt Count 228 k/mm3 k/mm3 (150-375) MPV 11.0 fl H fl (7.4-10.4) Immature Gran % (Auto) Not Reportable Neut % (Auto) Not Reportable Lymph % (Auto) Not Reportable [place] % (Auto) Not Reportable Eos % (Auto) Not Reportable Baso % (Auto) Not Reportable Lymph # (Auto) Not Reportable [place] # (Auto) Not Reportable Eos # (Auto) Not Reportable Baso # (Auto) Not Reportable Abs Immat Gran (auto) Not Reportable Absolute Neuts (auto) Not Reportable Absolute Nucleated RBC Not Reportable Total Counted 100 Neutrophils % (Manual) 66 % % (46-73) Band Neutrophils % 20 % H % (0-6) Lymphocytes % (Manual) 11.0 % L % (18-44) Monocytes % (Manual) 2 % L % (3-9) Metamyelocytes % 1 % % Nucleated RBC % Not Reportable Abs Neuts (Manual) 9.28 K/mm3 H K/mm3 (1.7-7.2) Abs Lymphs (Manual) 1.18 K/mm3 K/mm3 (1.1-4.5) Abs Monocytes (Manual) 0.21 K/mm3 K/mm3 (0.1-0.90) Platelet Estimate Adequate (Adequate) Large Platelets Present PT 13.0 Seconds Seconds (11.1-14.7) INR 0.9 APTT 30.3 SECONDS SECONDS (22.3-36.8) Puncture Site Left brachial ABG pH 7.431 (7.350-7.450) ABG pCO2 32.7 mmHg L mmHg (35.0-45.0) ABG pO2 66.6 mmHg L mmHg (80.0-100.0) ABG PO2/FiO2 Ratio 2.08 % % ABG HCO3 21.3 mEq/l L mEq/l (22.0-26.0) ABG O2 Saturation 93.9 % L % (95.0-100.0) ABG O2 Content 19.3 %vol %vol (16.0-22.0) ABG Base Excess -2.1 mEq/l mEq/l (+/-2.0) A-a Gradient 123.3 mmHg mmHg Oxyhemoglobin 92.9 % THb % THb (90.0-100.0) Total Hemoglobin 14.8 g/dL g/dL (12.0-18.0) O2 Delivery Device Nasal cannula O2 Liters/Min 3.0 LPM LPM FiO2 32 % % Sodium Potassium Chloride Carbon Dioxide Anion Gap BUN Creatinine Estim Creat Clear Calc
--- NOTE | 2020-12-19 14:05 | PM.PROC ---
Procedure Note - Detailed Date of procedure: 12/19/20 Pre-op diagnosis: severe sepsis/UTI/ureteral calculus right obstructive pyelonephritis Post-op diagnosis: same Procedure performed: cysto, right rpg, right ureteral stent placement Anesthesia: none Surgeon: Tony Fields MD Findings: Procedure: 1. Right retrograde pyelogram 2. Right ureteral stent placement Findings: 1. Right kidney clearly obstructed- still full of contrast from prior CT 2. Appropriate position of 6F variable length stent. Details: The patient was brought to the OR. She was on zosyn. Time out performed. No anesthesia was utilized given her mental status and tenuous vitals. Cysto was performed. Bladder had no tumors, looked like cystitis. Fluoro showed the right kidney clearly with a bit of contrast down to the UPJ. Cone tip catheter used to perform RPG. No hydro past the point of obstruction. Wire placed up into the kidney. 6F variable length stent placed with curl noted in the renal pelvis, curl visualized in the bladder. Pus poured out. This was sent for culture. Nye was placed for maximum drainage. Patient was sent to recovery. She will need definitive URS in a few weeks and the daughter Lucille (SHANTHI) is aware of this.
--- NOTE | 2020-12-19 14:11 | WPDANESEFPP ---
Anes - Eval Final PreProcedure Day of Procedure 12/19/20 14:11 Patient weight: overweight Heart: regular rate and rhythm Lungs: clear to auscultation and normal air movement Airway: Mallampati scale class II Neurological: alert and oriented Last oral intake: >/= 8 hours ASA classification: IV Emergent: yes Anesthetic plan: proceed Anesthesia type and monitoring: general GIVS Informed Consent: The patient's anesthetic plan and its attendant risks and benefits were discussed with the patient/family/POA. Questions were solicited and answers provided to the satisfaction of the patient/family/POA.
--- NOTE | 2020-12-19 14:20 | SUR.OPER ---
Attempted to call report to SAM Viera at [phone]. States she is in a pt room and will call back. Notified her we were bringing pt back to the floor per anesthesia request.
[2020-12-19] MEDS: SODIUM CHLORIDE 0.9% IV 1,000 ML 125 ML IV CONT ×2 (14:24→23:49)
--- NOTE | 2020-12-19 14:57 | PM.IMHP ---
H&P: HPI History of Present Illness Date/Time: 12/19/20 14:57 Chief Complaint: Unresponsive Narrative: Citlaly Joshua is a 80 year old female who is from [facility]. The patient came to the emergency today for evaluation of do decreased responsiveness. They found her like this when they did the rounds this morning at the alf. She has had a history of having had CVA with some left-sided deficits. The patient was not moving her right side today. She would only open her eyes to verbal stimuli normally but today she was not doing that. They found that her O2 saturation was 88% on room air. The patient is a DNR. The patient was just discharged from here On 11/09/2020. Where the patient was suspected to have aspiration pneumonia. She was on supplemental oxygen at that time. It was noted that her baseline is that she is nonverbal. The patient had blood cultures that grew out E coli with ESBL at that time and it was sensitive to Zosyn. Her sodium level was rising was given free water flushes at that time. The patient tends to vomit even with her tube feedings and tends to have aspiration pneumonia. She was septic at that time. She was seen by infectious disease at that time. Today the patient had a CT a chest abdomen and pelvis. 2.5 cm right breast mass diagnostic mammogram and right breast ultrasound examination is recommended. Probably calcified 2.5 mm x 11.8 gallstone is noted in the dependent aspect of the body of the gallbladder. 3 x 10 mm calculus or calculi at the right ureteral pelvic juncture with moderate right hydronephrosis diverticulosis of the sigmoid colon and cardiomegaly. Bilateral thyroid masses measuring up to 11 mm. Urology has been notified and has taken the patient to surgery. The patient had a right ureteral stent placed. The right kidney was clearly obstructed it was still full of contrast from prior CT. The patient was started on Zosyn and is positive for UTI as well. I did speak with her daughter who is the power corporate associate attorney Lucille concerning the patient's low blood pressure. Lucille gave me consent to do a central line if need be. I did speak with the barrel roller who recommended that we could bring the patient back to ICU place a central line placed her on vasopressors if need be. The patient reportedly had snoring respirations however were not able to do a BiPAP on her due to her risk of aspiration. The patient is a DNR. Status on the date of service of 12/19/2020. Review of Systems Review of Systems: ROS unobtainable: Yes unobtainable due to mental status Constitutional: Constitutional: Reports as per HPI and Reports no additional constitutional complaints Eyes: Eyes: Reports as per HPI and Reports no additional eye complaints ENT: Reports system reviewed and no additional complaints, except as documented and Reports Normal hearing present Cardiovascular: Cardiovascular: Reports no additional cardiovascular complaints Respiratory: Respiratory: Reports no additional respiratory complaints and Reports no additional respiratory complaints Gastrointestinal: Gastrointestinal: Reports as per HPI and Reports no additional gastrointestinal complaints Musculoskeletal: Musculoskeletal: Reports no additional musculoskeletal complaints Integumentary/Breasts: Skin/Breast: Reports system reviewed and no additional complaints, except as docu and Reports as per HPI Neurologic: Reports system reviewed and no additional complaints, except as documented, Reports as per HPI and Reports Normal hearing present Psychiatric: Psychiatric: Reports no additional psychiatric complaints and Reports as per HPI Endocrine: Endocrine: Reports no additional endocrine complaints Hematologic/Lymphatic: Hematologic/Lymphatic: Reports no additional hematologic/lymphatic complaints Allergic/Immunologic: Allergic/Immunologic: Reports no additional allergic/immunologic complaints PMFSH Past Medical History Medical Hi
[2020-12-19 15:09] LABS: Glucose Point of Care 146 (65-105)
[2020-12-19 15:50] LABS: Hemoglobin A1C 6.3 % (<5.7)
[2020-12-19] MEDS: LACTATED RINGERS 1,000 ML 999 ML IV CONT (16:14)
[2020-12-19 18:03] LABS: Glucose Point of Care 137 (65-105)
--- NOTE | 2020-12-19 18:57 | PC.NURSE ---
This patient, Citlaly Joshua, was transferred to [ICU * ] on 12/19/20 at 1857. Personal belongings sent with patient. Report given to [ SAM Lowe]. Appropriate documentation sent with patient.
--- NOTE | 2020-12-19 19:28 | WPDPROCEDUR ---
Procedures Central Line Placement Right Femoral: Central Line Date: 12/19/20 Central Line Time: 19:10 Discussed w/ the patient/family/POA,the placement of a central venous catheter, including its clinical necessity/indication & associated potential risks, benifits and alternatives.: Yes Time Out Performed: Yes Patient Position: supine Patient placed on monitor/pulse ox: Yes Provider Prep: mask, sterile gown, sterile gloves, Max. sterile barrier precautions, cap, hand hygiene with conventional soap/water or alcohol based hand rub and emergent ? sterile barriers not used Central line prep: 2% Chlorhexidine scrub and sterile full body sheet applied Local anesthesia used: lidocaine 1% Amount of anesthesia used (ml): 5 Sterile US Technique with sterile gel/sterile probe covers: Yes Central line lumen inserted: triple Greek: 7 Length (cm): 16 Depth of Insertion (cm): 16 Post Procedure: sutured in place, good blood return and all ports aspirated, flushed, capped Patient tolerated procedure: well Complications: none
[2020-12-19 19:44] LABS: Glucose Point of Care 132 (65-105)
[2020-12-19] MEDS: NOREPINEPHRINE 8 MG/D5W 250 ML 8 MG/250 ML BAG 9.38 MG IV CONT (19:51)
[2020-12-19] MEDS: CENTRAL LINE FLUSH 10 ML IV PUSH (20:00)
[2020-12-19 21:23] LABS: SARS-CoV-2 RNA PCR Negative
[2020-12-20] VITALS (26 sets, daily range): BP systolic 89–128; BP diastolic 46–75; PULSE 80–108; RESP 18–27; TEMP 36.3–36.8; O2SAT 91–100; BMI 29.3
[2020-12-20 02:49] LABS: Glucose Point of Care 149 (65-105)
[2020-12-20 05:07] LABS: Hematocrit 34.8 % (37.0-47.0); Hemoglobin 11.3 g/dL (12.0-15.0); Mean Corpuscular HGB Conc 32.5 g/dl (32-36); Mean Corpuscular Hemoglobin 29.7 pg (26-34); Mean Corpuscular Volume 91.6 fl (80-100); Mean Platelet Volume 10.8 fl (7.4-10.4); Platelet Count Result 111 k/mm3 (150-375); Red Cell Distribution Width 14.7 % (11.5-14.5); White Blood Count 30.9 K/mm3 (4.5-10.0)
[2020-12-20 05:29] LABS: Lactic Acid Reflex 3.2 mmol/L (0.7-2.1)
[2020-12-20 06:12] LABS: Alanine Aminotransferase 20 U/L (4-35); Albumin Level 3.2 g/dL (3.5-5.1); Alkaline Phosphatase 68 U/L (38-126); Anion Gap 8 mmol/L (8-16); Aspartate Amino Transferase 34 U/L (14-36); Bilirubin,Total 0.9 mg/dL (0.2-1.3); Blood Urea Nitrogen 34 mg/dL (7-17); Calcium 8.5 mg/dL (8.4-10.2); Carbon Dioxide 25 mmol/L (22-30); Chloride 108 mmol/L (98-107); Estimated CRCL calculation 31 ml/min; Estimated Glomerular Filt Rate 39; Glucose 138 mg/dL (65-105); Magnesium 1.7 mg/dL (1.6-2.3); Potassium 3.9 mmol/L (3.4-5.0); Sodium 141 mmol/L (137-145)
[2020-12-20 06:20] LABS: Eosinophils Percent Manual 1 % (0-4); Lymphocytes Absolute Manual 2.78 K/mm3 (1.1-4.5); Monocytes Absolute Manual 2.16 K/mm3 (0.1-0.90); Monocytes Percent Manual 7 % (3-9); Neutrophils Percent Manual 83 % (46-73); Total Cells Counted 100
[2020-12-20 06:21] LABS: Anisocytosis 1+ (NORMAL); Atypical Lymphocytes Present; Microcytosis 1+ (NORMAL); Platelet Estimate Decreased (Adequate); Poikilocytosis 1+ (NORMAL); Smudge Cells PRESENT
[2020-12-20] MEDS: CENTRAL LINE FLUSH 10 ML IV PUSH ×4 (06:35→19:59)
[2020-12-20 06:36] LABS: CRP 44.7 mg/dL (<1.0)
[2020-12-20 07:05] LABS: Thyroid Stimulating Hormone Reflex 0.786 uIU/mL (0.465-4.68)
[2020-12-20 08:05] LABS: Reflex Lactic Acid Yes or No Add Lactic
--- NOTE | 2020-12-20 08:05 | WPDANESPN ---
Anes - Prog Note Post-Op Date/Time: 12/20/20 08:05 Cardiovascular status: other (on norepinephrine drip) Respiratory status: other (on supplemental O2 per NC) Airway patency: baseline Mental status: baseline Post-Op hydration status: normal Vital Signs: Last Vital Signs Temp 36.7 C 12/20/20 04:00 Pulse 92 12/20/20 07:51 Resp 21 H 12/20/20 07:36 BP 90/52 L 12/20/20 07:51 Pulse Ox 94 12/20/20 07:36 Pain Score (VAS): 0 I/O: Intake & Output 12/19/20 12/20/20 12/20/20 23:59 07:59 15:59 Intake Total 2049 100 Output Total 10 Balance 2039 - Laboratory Tests 12/20/20 04:54 12/20/20 04:54 12/19/20 12/19/20 12/19/20 07:31 07:31 09:53 WBC RBC Hgb Hct MCV MCH MCHC RDW Plt Count MPV Immature Gran % (Auto) Neut % (Auto) Lymph % (Auto) [place] % (Auto) Eos % (Auto) Baso % (Auto) Lymph # (Auto) [place] # (Auto) Eos # (Auto) Baso # (Auto) Abs Immat Gran (auto) Absolute Neuts (auto) Absolute Nucleated RBC Total Counted Neutrophils % (Manual) Lymphocytes % (Manual) Monocytes % (Manual) Eosinophils % (Manual) Nucleated RBC % Abs Lymphs (Manual) Abs Monocytes (Manual) Absolute Eos (Manual) Atypical Lymphocytes Smudge Cells Platelet Estimate Poikilocytosis Anisocytosis Microcytosis Sodium 140 Potassium 4.8 Chloride 99 Carbon Dioxide 25 Anion Gap 16 BUN 31 H Creatinine 0.90 Estim Creat Clear Calc 44 Estimated GFR 60 Glucose 223 H POC Capillary Glucose Hemoglobin A1c Lactic Acid Calcium 9.6 Magnesium Total Bilirubin 1.2 AST 46 H ALT 29 Alkaline Phosphatase 157 H Troponin I < 0.012 C-Reactive Protein 8.2 H NT-Pro-B Natriuret Pep 1090 H Total Protein 8.0 Albumin 4.5 TSH 1.660 TSH (Reflex) Urine Color Yellow Urine Appearance Cloudy H Urine pH 5.0 Ur Specific [place] 1.028 Urine Protein 2+ H Urine Glucose (UA) Negative Urine Ketones Negative Ur Blood (Man) Negative Urine Nitrate Negative Urine Bilirubin Negative Urine Urobilinogen Negative Leukocyte Esterase Rfl 1+ H Urine RBC 6-10 H Urine WBC 31-50 H Urine WBC Clumps Present H Ur Squamous Epith Cells Rare Urine Bacteria Trace Hyaline Casts 5-9 H Urine Mucus Rare SARS-CoV-2 RNA (RT-PCR) 12/19/20 12/19/20 12/19/20 10:54 11:28 15:06 WBC RBC Hgb Hct MCV MCH MCHC RDW Plt Count MPV Immature Gran % (Auto) Neut % (Auto) Lymph % (Auto) [place] % (Auto) Eos % (Auto) Baso % (Auto) Lymph # (Auto) [place] # (Auto) Eos # (Auto) Baso # (Auto) Abs Immat Gran (auto) Absolute Neuts (auto) Absolute Nucleated RBC Total Counted Neutrophils % (Manual) Lymphocytes % (Manual) Monocytes % (Manual) Eosinophils % (Manual) Nucleated RBC % Abs Lymphs (Manual) Abs Monocytes (Manual) Absolute Eos (Manual) Atypical Lymphocytes Smudge Cells Platelet Estimate Poikilocytosis Anisocytosis Microcytosis Sodium Potassium Chloride Carbon Dioxide Anion Gap BUN Creatinine Estim Creat Clear Calc Estimated GFR Glucose POC Capillary Glucose 146 H Hemoglobin A1c Lactic Acid 3.4 H Calcium Magnesium Total Bilirubin AST ALT Alkaline Phosphatase Troponin I C-Reactive Protein NT-Pro-B Natriuret Pep Total Protein Albumin TSH TSH (Reflex) Urine Color Urine Appearance Urine pH Ur Specific [place] Urine Protein Urine Glucose (UA) Urine Ketones Ur Blood (Man) Urine Nitrate Urine Bilirubin Urine Urobilinogen Leukocyte Esterase Rfl Urine RBC Urine WBC Urine WBC Clumps Ur Squamous Epith Cells Urine Bacteria Hyaline Casts Urine Mucus
--- NOTE | 2020-12-20 08:18 | WPDCNINT ---
Assessment and Plan Assessment and plan (1) Septic shock: Code(s): A41.9 - Sepsis, unspecified organism; R65.21 - Severe sepsis with septic shock Status: Acute Assessment and Plan: Patient presented with altered mental status, found to be severe sepsis. CT scan of the abdomen and pelvis showed right ureteral calculi the ureteropelvic junction with right hydronephrosis. Patient status post retrograde pyelogram, cystoscopy and right ureteral stent placement. -purulent drainage was noted after ureteral stent placement -likely source pyelonephritis/UTI -given significant leukocytosis, increasing Levophed requirements, lactic acidosis will DC Zosyn and start imipenem and vancomycin -will recheck lactic acid -continue maintenance IV fluids (2) Bacteremia: Code(s): R78.81 - Bacteremia Status: Acute Assessment and Plan: Blood cultures growing gram-negative bacilli, await identification and sensitivity -continue imipenem (3) Obstruction of right ureteropelvic junction due to stone: Code(s): N20.1 - Calculus of ureter Status: Acute Assessment and Plan: Status post retrograde pyelogram, cystoscopy and right ureteral stent placement. -appreciate urology following the patient (4) UTI (urinary tract infection): Code(s): N39.0 - Urinary tract infection, site not specified Status: Acute Assessment and Plan: Upon placement of the ureteral stent, purulent drainage was noted by Urology -urine cultures are pending -continue antibiotics as above (5) Suspected 2019 novel coronavirus infection: Code(s): Z20.822 - Contact with and (suspected) exposure to COVID-19 Status: Acute Assessment and Plan: SARS-CoV-2 PCR negative on 12/19/2020 -isolation and precautions have been discontinued (6) DM2 (diabetes mellitus, type 2): Code(s): E11.9 - Type 2 diabetes mellitus without complications Status: Chronic Assessment and Plan: Continue Accu-Cheks and sliding scale insulin -hemoglobin A1c is 6.3 this admission (7) Breast mass: Code(s): N63.0 - Unspecified lump in unspecified breast Status: Acute Assessment and Plan: Have breast mass noted on CT scan of the chest, hospitalist has ordered ultrasound of the breast and thyroid (8) Acute kidney injury: Code(s): N17.9 - Acute kidney failure, unspecified Status: Acute Assessment and Plan: Acute kidney injury likely related to septic shock, hypotension, UTI, bacteremia -will obtain noninvasive hemodynamic monitoring to evaluate if patient is fluid responsive -continue monitor and trend lactic acid levels -monitor urine output, renal function and electrolytes -continue maintenance IV fluids Additional Plan Will discuss with family Code status: Do not resuscitate Critical care time spent: 49 minutes Due to a high probability of clinically significant, life threatening deterioration, the patient required my highest level of preparedness to intervene emergently and I personally spent this critical care time directly and personally managing the patient. This critical care time included obtaining a history; examining the patient; pulse oximetry; ordering and review of studies; arranging urgent treatment with development of a management plan; evaluation of patient's response to treatment; frequent reassessment; and discussions with other providers. It was exclusive of separately billable procedures and treating other patients and teaching time. Please see Assessment and Plan section and the rest of the note for further information on patient assessment and treatment Clinical Assessment Manager Consult Note Consult date: 12/20/20 Time Seen: 06:52 Reason for consult: Septic shock, bacteremia, UTI, right ureteral calculus status post right ureteral stent placement, cystoscopy and right retrograde pyelogram HPI: Citlaly Joshua is a 80 year old female aspiration pneumonia, peg tube, CV
[2020-12-20 08:41] LABS: Lactic Acid 2.9 mmol/L (0.7-2.1)
[2020-12-20] MEDS: SODIUM CHLORIDE 0.9% IV 1,000 ML 75 ML IV CONT ×2 (08:47→22:14)
[2020-12-20 09:57] LABS: Estimated CRCL calculation 34 ml/min; Estimated Glomerular Filt Rate 43
[2020-12-20 11:39] LABS: Glucose Point of Care 134 (65-105)
[2020-12-20 12:09] LABS: Lactic Acid Reflex 2.3 mmol/L (0.7-2.1)
--- NOTE | 2020-12-20 12:45 | PM.IMPN ---
Progress Note: A&P Assessment and Plan (1) Septicemia: Code(s): A41.9 - Sepsis, unspecified organism Status: Acute Assessment and Plan: Patient has obstructive urinary tract infection. She has had a history of having E coli with ESBL recently. It was sensitive to Zosyn. Patient could also has aspiration pneumonia. Blood cultures are pending. I spoke with the port crane operator who agreed that we could take the patient back to ICU if she does need a central line vasopressors. She has had 2 L of fluid at this time. Will give her 1 more bolus and if her blood pressure does not improve then will need to put a central line in take her to ICU. I did speak with the daughter Lucille who is agreeable to this. The patient is a DNR but the power claims attorney will allow the central line and vasopressors. 12/20/20 12:45 Patient 80-year-old female resident of nursing patient was unresponsive and brought emergency department for further evaluation CT scan of the abdomen and pelvis showed Right nephrolithiasis probable obstructing 3 x 10 mm calculus or calculi at right ureteropelvic junction with moderate right hydronephrosis, patient was seen by urologist was taken to the urology lab and had a cystoscopy, retrograde pyelogram and right ureteral stent placement, cloud infectious urine was collected, hypotensive, most likely patient has sepsis, secondary to UTI pyelonephritis patient started on imipenem and vancomycin, also concern the patient may have aspiration pneumonia on a CT scan of the chest however patient is treated appropriately with imipenem and vancomycin, currently patient is in ICU unresponsive, unable to provide any review of symptoms or history. Will continue to monitor and appreciate port crane operator and patient will be seen by urologist further recommendation to follow. (2) UTI (urinary tract infection): Code(s): N39.0 - Urinary tract infection, site not specified Status: Acute Assessment and Plan: Continue with Zosyn. Urine and blood cultures are pending. She has a history of ESBL and the blood in the past. (3) Acute and chronic respiratory failure with hypoxia: Code(s): J96.21 - Acute and chronic respiratory failure with hypoxia Status: Acute Assessment and Plan: At this time due to her unresponsiveness in her history of aspiration. It was reported that the patient had been vomiting and suspect that she is aspirating. Patient is on 5 L on a non-rebreather and satting 100% at this time. Continue with inhalers. Patient is being swabbed for COVID-19. She had tested positive back in September of 2020. She is placed in isolation. (4) Obstruction of right ureteropelvic junction due to stone: Code(s): N20.1 - Calculus of ureter Status: Acute Assessment and Plan: Urology has seen the patient and placed a ureteral stent. She is on Zosyn. (5) DM2 (diabetes mellitus, type 2): Code(s): E11.9 - Type 2 diabetes mellitus without complications Status: Chronic Assessment and Plan: I am holding her tube feedings at this time. She is on IV fluids. Will do a sliding scale every 6 hours. A1c 6.3. (6) Thyroid nodule: Code(s): E04.1 - Nontoxic single thyroid nodule Status: Acute Assessment and Plan: I did order an ultrasound of thyroid. Most likely benign. (7) Breast mass: Code(s): N63.0 - Unspecified lump in unspecified breast Status: Acute Assessment and Plan: I ordered ultrasound of the right breast. I spoke to the power claims attorney about the findings on the CT and she was agreeable with the ultrasound of the thyroid and the breast. (8) G tube feedings: Code(s): Z93.1 - Gastrostomy status Status: Acute Assessment and Plan: I did hold this for now. She had but no vomiting and possibly aspirated (9) Aspiration pneumonia: Qualifiers: Aspiration pneumonia type: unspecified Laterality: bilateral Lung loca
--- NOTE | 2020-12-20 13:04 | WPDUROPN2 ---
Progress Note: A&P Assessment and Plan (1) Acute kidney injury: Code(s): N17.9 - Acute kidney failure, unspecified Status: Acute (2) Bacteremia: Code(s): R78.81 - Bacteremia Status: Acute Assessment and Plan: Patient will continue IV antibiotics, tailor to culture results. (3) Obstruction of right ureteropelvic junction due to stone: Code(s): N20.1 - Calculus of ureter Status: Acute Assessment and Plan: Will need to do a right ureteroscopy at some point pending her condition with Dr. Fields. Patient will keep stent in for the time being. Will follow from a distance and make plans for her ureteroscopy down the road when she is more stable. Subjective Subjective Date/Time Seen: 12/20/20 13:04 POD #1 Cystoscopy, Right Retrograde Pyelogram, Right ureteral stent placement. Patient is non verbal. Review of Systems Review of Systems: ROS unobtainable: Yes unobtainable due to medical condition Exam Resp: Effort & Inspection: normal respiratory effort Cardio: Rate: regular rate GI: GI Palp: Yes Soft to palpation Urinary Catheter: Urinary Catheter: patent and draining and urine clear Extrem: General: no edema Objective Data Vital Signs Vital Signs: Vital Signs - 24 hr 12/19/20 13:30 12/19/20 14:25 12/19/20 14:45 Temperature Pulse Rate 116 H Respiratory Rate Blood Pressure 74/38 L Pulse Oximetry 92 12/19/20 14:55 12/19/20 16:00 12/19/20 18:00 Temperature 100.3 F H Pulse Rate 118 H 119 H 117 H Respiratory Rate 24 H 24 H Blood Pressure 80/48 L 87/42 L Pulse Oximetry 99 96 12/19/20 18:03 12/19/20 19:51 12/19/20 20:00 Temperature 97.7 F Pulse Rate 120 H 121 H Respiratory Rate 27 H Blood Pressure 81/45 L 88/55 L 110/58 L Pulse Oximetry 100 12/19/20 22:00 12/20/20 00:00 12/20/20 02:00 Temperature 97.4 F L Pulse Rate 120 H 108 H 102 H Respiratory Rate 25 H 24 H 23 H Blood Pressure 105/67 114/54 L 102/61 Pulse Oximetry 97 96 99 12/20/20 04:00 12/20/20 04:45 02/15/21 06:00 Temperature 98.0 F Pulse Rate 98 95 96 Respiratory Rate 24 H 21 H Blood Pressure 110/65 123/62 105/63 Pulse Oximetry 98 98 12/20/20 06:27 12/20/20 07:36 12/20/20 07:40 Temperature Pulse Rate 96 91 92 Respiratory Rate 21 H Blood Pressure 108/67 94/54 L Pulse Oximetry 94 12/20/20 07:51 12/20/20 08:00 12/20/20 08:44 Temperature 98.1 F Pulse Rate 92 88 86 Respiratory Rate 18 Blood Pressure 90/52 L 95/52 L 89/51 L Pulse Oximetry 96 12/20/20 09:56 12/20/20 10:00 12/20/20 11:46 Temperature Pulse Rate 90 92 85 Respiratory Rate 18 21 H Blood Pressure 109/75 Pulse Oximetry 97 97 12/20/20 12:00 Temperature 98.2 F Pulse Rate 88 Respiratory Rate 18 Blood Pressure 105/57 L Pulse Oximetry 97 Intake/Output Intake/Output: Intake & Output 12/17/20 12/18/20 12/19/20 12/20/20 23:59 23:59 23:59 23:59 Intake Total 4300 1100 Output Total 110 425 Balance 4190 675 Meds/Results Medications: Active Medications Generic Name Dose Route Start Last Admin Trade Name Freq PRN Reason Stop Dose Admin Albuterol 2 puff 12/19/20 15:38 Albuterol Sulfate (*Sp) Aerosol 1 Puff INHALATION Q6HRT PRN Shortness Of Breath Dextrose 12.5 gm 12/19/20 14:53 Dextrose 50% 25 Gm/50 Ml Syringe IV PUSH PRN PRN Hypoglycemia Protocol Fentanyl Citrate 25 mcg 12/19/20 14:10 Fentanyl Citrate Inj (*Crx) 100 Mcg/2 Ml Vial IV PUSH Q2M PRN Pain Glucagon 1 mg 12/19/20 14:53 Glucagon For Inj 1 Mg Vial IM PRN PRN Hypoglycemia Protocol Glucose 15 gm 12/19/20 14:53 Glucose Oral Gel 15 Gm Of Glucse In 37.5 Gm Tube PO PRN PRN Hypoglycemia Protocol Sodium Chloride 1,000 mls @ 75 mls/hr 12/19/20 11:30 12/20/20 08:47 Normal Saline Iv IV CONT 75 mls/hr .[id number] VISHAL Administration Dextrose 1,000 mls @ 100 mls/hr 12/19/
[2020-12-20 17:15] LABS: Glucose Point of Care 121 (65-105)
[2020-12-21] VITALS (28 sets, daily range): BP systolic 92–141; BP diastolic 40–85; PULSE 86–104; RESP 20–29; TEMP 36.6–36.9; O2SAT 93–97
[2020-12-21 00:33] LABS: Glucose Point of Care 106 (65-105)
[2020-12-21] MEDS: ALBUTEROL SULFATE (*SP) AEROSOL 1 PUFF 2 PUFF INHALATION (01:36)
[2020-12-21] MEDS: CENTRAL LINE FLUSH 10 ML IV PUSH ×4 (04:59→22:25)
[2020-12-21 05:21] LABS: Hematocrit 33.9 % (37.0-47.0); Hemoglobin 10.7 g/dL (12.0-15.0); Mean Corpuscular HGB Conc 31.6 g/dl (32-36); Mean Corpuscular Hemoglobin 29.1 pg (26-34); Mean Corpuscular Volume 92.1 fl (80-100); Platelet Count Result 104 k/mm3 (150-375); Red Blood Count 3.68 M/mm3 (4.2-5.4); Red Cell Distribution Width 14.8 % (11.5-14.5); White Blood Count 22.6 K/mm3 (4.5-10.0)
[2020-12-21 05:27] LABS: Lactic Acid Reflex 2.3 mmol/L (0.7-2.1)
[2020-12-21 05:29] LABS: Alanine Aminotransferase 18 U/L (4-35); Albumin Level 2.9 g/dL (3.5-5.1); Alkaline Phosphatase 86 U/L (38-126); Anion Gap 4 mmol/L (8-16); Aspartate Amino Transferase 28 U/L (14-36); Bilirubin,Total 0.7 mg/dL (0.2-1.3); Blood Urea Nitrogen 29 mg/dL (7-17); Calcium 8.4 mg/dL (8.4-10.2); Carbon Dioxide 26 mmol/L (22-30); Chloride 111 mmol/L (98-107); Estimated CRCL calculation 49 ml/min; Estimated Glomerular Filt Rate > 60; Glucose 118 mg/dL (65-105); Magnesium 1.8 mg/dL (1.6-2.3); Phosphorus 2.5 mg/dL (2.5-4.5); Potassium 3.4 mmol/L (3.4-5.0); Sodium 141 mmol/L (137-145)
[2020-12-21 08:13] LABS: Reflex Lactic Acid Yes or No Add Lactic
--- NOTE | 2020-12-21 08:35 | WPDINTPN ---
Progress Note: A&P Assessment and Plan (1) Septic shock: Code(s): A41.9 - Sepsis, unspecified organism; R65.21 - Severe sepsis with septic shock Status: Acute Assessment and Plan: Patient presented with altered mental status, found to be severe sepsis. CT scan of the abdomen and pelvis showed right ureteral calculi the ureteropelvic junction with right hydronephrosis. Patient status post retrograde pyelogram, cystoscopy and right ureteral stent placement. -purulent drainage was noted after ureteral stent placement -likely source pyelonephritis/UTI -continue imipenem will discontinue vancomycin -lactic acid remains 2.3 -urine cultures growing E coli, sensitivities pending - blood cultures growing gram-negative bacilli identification and sensitivity pending -continue maintenance IV fluids -on Levophed at 1 mcg/min, maintain MAP > 65 mmHg (2) Bacteremia: Code(s): R78.81 - Bacteremia Status: Acute Assessment and Plan: Blood cultures growing gram-negative bacilli, await identification and sensitivity -continue imipenem (3) Obstruction of right ureteropelvic junction due to stone: Code(s): N20.1 - Calculus of ureter Status: Acute Assessment and Plan: Status post retrograde pyelogram, cystoscopy and right ureteral stent placement. -appreciate urology following the patient - Will need to do a right ureteroscopy at some point pending her condition with Dr. Fields. (4) UTI (urinary tract infection): Code(s): N39.0 - Urinary tract infection, site not specified Status: Acute Assessment and Plan: Upon placement of the ureteral stent, purulent drainage was noted by Urology -urine cultures are pending -continue antibiotics as above (5) Suspected 2019 novel coronavirus infection: Code(s): Z20.822 - Contact with and (suspected) exposure to COVID-19 Status: Acute Assessment and Plan: SARS-CoV-2 PCR negative on 12/19/2020 -isolation and precautions have been discontinued (6) DM2 (diabetes mellitus, type 2): Code(s): E11.9 - Type 2 diabetes mellitus without complications Status: Chronic Assessment and Plan: Continue Accu-Cheks and sliding scale insulin -hemoglobin A1c is 6.3 this admission (7) Breast mass: Code(s): N63.0 - Unspecified lump in unspecified breast Status: Acute Assessment and Plan: Have breast mass noted on CT scan of the chest, -12/20/2020 right breast ultrasound: No sonographic evidence for malignancy in the right breast. Benign cysts (8) Acute kidney injury: Code(s): N17.9 - Acute kidney failure, unspecified Status: Acute Assessment and Plan: Acute kidney injury likely related to septic shock, hypotension, UTI, bacteremia -will obtain noninvasive hemodynamic monitoring to evaluate if patient is fluid responsive -continue monitor and trend lactic acid levels -monitor urine output, renal function and electrolytes -continue maintenance IV fluids (9) Thyroid nodule: Code(s): E04.1 - Nontoxic single thyroid nodule Status: Acute Assessment and Plan: 12/20/2020 Thyroid ultrasound: Multiple likely benign cystic or nearly entirely cystic bilateral thyroid nodules which do not meet consensus criteria for either biopsy or follow-up. (10) DVT prophylaxis: Code(s): Z29.9 - Encounter for prophylactic measures, unspecified Status: Acute Additional Plan Discussed with Lucille Fernandez, patient's daughter and power of attorney general healthcare. Updated her with patient's condition and plan of care. I answered all questions. Code status: Do not resuscitate Critical care time spent: 32 minutes Due to a high probability of clinically significant, life threatening deterioration, the patient required my highest level of preparedness to intervene emergently and I personally spent this critical care time directly and personally managing the patient. This critical care ti
[2020-12-21 09:28] LABS: Lactic Acid 2.4 mmol/L (0.7-2.1)
--- NOTE | 2020-12-21 10:19 | PCDIET ---
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 Nutrition Goal: Patient to meet estimated nutritional needs. Goal in progress. Patient tolerating Glucerna 1.2 at 30mL/hr with MD order to advance toward goal of 65mL/hr today. Given 22 hour daily infusion, this will provide 1716kcal and 85g protein daily. Last recorded weight is 80.4 kg which is stable. Bowel Motility: +BM today x 2, per RN. Labs Reviewed: Hgb (10.7), Hct (33.9), Glu (118), BUN (29), Cl (111), Alb (2.9) Meds Noted: Albuterol, Imipenem, NS at 50mL/hr Additional Notes: MD order to discontinue IV fluids once tube feedings reach goal. Patient to receive 30mL water flush every 4 hours with tube feedings. Coccyx with Mepilex. No open sores documented. Nutrition Monitoring and Evaluation: Follow up every Sunday/Sunday. Follow daily in ICU rounds.
[2020-12-21] MEDS: SODIUM CHLORIDE 0.9% IV 1,000 ML 50 ML IV CONT (10:47)
[2020-12-21 11:21] LABS: Glucose Point of Care 117 (65-105)
--- NOTE | 2020-12-21 15:35 | PM.IMPN ---
Progress Note: A&P Assessment and Plan (1) Septicemia: Code(s): A41.9 - Sepsis, unspecified organism Status: Acute Assessment and Plan: 12/21/20 15:35 Patient has obstructive urinary tract infection. She has had a history of having E coli with ESBL recently. It was sensitive to Zosyn. Patient could also has aspiration pneumonia. Blood cultures are pending. I spoke with the yolk spray drier who agreed that we could take the patient back to ICU if she does need a central line vasopressors. She has had 2 L of fluid at this time. Will give her 1 more bolus and if her blood pressure does not improve then will need to put a central line in take her to ICU. I did speak with the daughter Lucille who is agreeable to this. The patient is a DNR but the power trademark attorney will allow the central line and vasopressors. 12/20/20 12:45 Patient 80-year-old female resident of nursing patient was unresponsive and brought emergency department for further evaluation CT scan of the abdomen and pelvis showed Right nephrolithiasis probable obstructing 3 x 10 mm calculus or calculi at right ureteropelvic junction with moderate right hydronephrosis, patient was seen by urologist was taken to the urology lab and had a cystoscopy, retrograde pyelogram and right ureteral stent placement, cloud infectious urine was collected, hypotensive, most likely patient has sepsis, secondary to UTI pyelonephritis patient started on imipenem and vancomycin, also concern the patient may have aspiration pneumonia on a CT scan of the chest however patient is treated appropriately with imipenem and vancomycin, currently patient is in ICU unresponsive, unable to provide any review of symptoms or history. Will continue to monitor and appreciate yolk spray drier and patient will be seen by urologist further recommendation to follow. 12/21 patient blood and urine culture is growing E coli continued imipenem and stopped the vancomycin by the yolk spray drier, was seen by urologist and cystoscopy and stent placed, currently on Levophed, patient is clinically stable, unable to provider any ROS. once off the Levophed will transfer patient out of ICU, once clinically stable will start PT/OT. (2) UTI (urinary tract infection): Code(s): N39.0 - Urinary tract infection, site not specified Status: Acute Assessment and Plan: Urine culture is growing E coli currently on imipenem will follow-up urine culture and sensitivity (3) Acute and chronic respiratory failure with hypoxia: Code(s): J96.21 - Acute and chronic respiratory failure with hypoxia Status: Acute Assessment and Plan: At this time due to her unresponsiveness in her history of aspiration. It was reported that the patient had been vomiting and suspect that she is aspirating. Patient is on 5 L on a non-rebreather and satting 100% at this time. Continue with inhalers. Patient is being swabbed for COVID-19. She had tested positive back in September of 2020. She is placed in isolation. (4) Obstruction of right ureteropelvic junction due to stone: Code(s): N20.1 - Calculus of ureter Status: Acute Assessment and Plan: Urology has seen the patient and placed a ureteral stent. She is on Zosyn. (5) DM2 (diabetes mellitus, type 2): Code(s): E11.9 - Type 2 diabetes mellitus without complications Status: Chronic Assessment and Plan: I am holding her tube feedings at this time. She is on IV fluids. Will do a sliding scale every 6 hours. A1c 6.3. (6) Thyroid nodule: Code(s): E04.1 - Nontoxic single thyroid nodule Status: Acute Assessment and Plan: I did order an ultrasound of thyroid. Most likely benign. (7) Breast mass: Code(s): N63.0 - Unspecified lump in unspecified breast Status: Acute Assessment and Plan: I ordered ultrasound of the right breast. I spoke to the power trademark attorney about the findings on the CT and she was agreeable with the
[2020-12-21 17:44] LABS: Glucose Point of Care 107 (65-105)
[2020-12-22] VITALS (10 sets, daily range): BP systolic 129–157; BP diastolic 66–83; PULSE 88–99; RESP 20–28; TEMP 36.8–37.9; O2SAT 93–97
[2020-12-22 00:27] LABS: Glucose Point of Care 107 (65-105)
[2020-12-22 05:29] LABS: Hematocrit 35.5 % (37.0-47.0); Hemoglobin 11.2 g/dL (12.0-15.0); Mean Corpuscular HGB Conc 31.5 g/dl (32-36); Mean Corpuscular Hemoglobin 29.2 pg (26-34); Mean Corpuscular Volume 92.7 fl (80-100); Mean Platelet Volume 12.1 fl (7.4-10.4); Platelet Count Result 135 k/mm3 (150-375); Red Blood Count 3.83 M/mm3 (4.2-5.4); Red Cell Distribution Width 14.9 % (11.5-14.5); White Blood Count 22.6 K/mm3 (4.5-10.0)
[2020-12-22 05:44] LABS: Lactic Acid Reflex 1.7 mmol/L (0.7-2.1)
[2020-12-22 05:45] LABS: Alanine Aminotransferase 17 U/L (4-35); Albumin Level 3.2 g/dL (3.5-5.1); Alkaline Phosphatase 142 U/L (38-126); Anion Gap 4 mmol/L (8-16); Aspartate Amino Transferase 24 U/L (14-36); Bilirubin,Total 0.5 mg/dL (0.2-1.3); Blood Urea Nitrogen 23 mg/dL (7-17); Calcium 8.8 mg/dL (8.4-10.2); Carbon Dioxide 27 mmol/L (22-30); Chloride 111 mmol/L (98-107); Estimated CRCL calculation 65 ml/min; Estimated Glomerular Filt Rate > 60; Glucose 114 mg/dL (65-105); Magnesium 1.9 mg/dL (1.6-2.3); Phosphorus 2.8 mg/dL (2.5-4.5); Potassium 3.5 mmol/L (3.4-5.0); Sodium 142 mmol/L (137-145)
[2020-12-22] MEDS: CENTRAL LINE FLUSH 10 ML IV PUSH (05:47)
--- NOTE | 2020-12-22 08:38 | WPDINTPN ---
Progress Note: A&P Assessment and Plan (1) Septic shock: Code(s): A41.9 - Sepsis, unspecified organism; R65.21 - Severe sepsis with septic shock Status: Acute Assessment and Plan: Patient presented with altered mental status, found to be severe sepsis. CT scan of the abdomen and pelvis showed right ureteral calculi the ureteropelvic junction with right hydronephrosis. Patient status post retrograde pyelogram, cystoscopy and right ureteral stent placement. -purulent drainage was noted after ureteral stent placement -likely source pyelonephritis/UTI -lactic acid normal - blood and urine cultures growing ESBL E coli. -continue imipenem -OFF LEVOPHED (2) Bacteremia: Code(s): R78.81 - Bacteremia Status: Acute Assessment and Plan: Blood cultures growing ESBL E coli -continue imipenem (3) Obstruction of right ureteropelvic junction due to stone: Code(s): N20.1 - Calculus of ureter Status: Acute Assessment and Plan: Status post retrograde pyelogram, cystoscopy and right ureteral stent placement. -appreciate urology following the patient - Will need to do a right ureteroscopy at some point pending her condition with Dr. Fields. (4) UTI (urinary tract infection): Code(s): N39.0 - Urinary tract infection, site not specified Status: Acute Assessment and Plan: Upon placement of the ureteral stent, purulent drainage was noted by Urology -urine cultures ESBL E coli -continue antibiotics as above (5) Suspected 2019 novel coronavirus infection: Code(s): Z20.822 - Contact with and (suspected) exposure to COVID-19 Status: Acute Assessment and Plan: SARS-CoV-2 PCR negative on 12/19/2020 -isolation and precautions have been discontinued (6) DM2 (diabetes mellitus, type 2): Code(s): E11.9 - Type 2 diabetes mellitus without complications Status: Chronic Assessment and Plan: Continue Accu-Cheks and sliding scale insulin -hemoglobin A1c is 6.3 this admission (7) Breast mass: Code(s): N63.0 - Unspecified lump in unspecified breast Status: Acute Assessment and Plan: Have breast mass noted on CT scan of the chest, -12/20/2020 right breast ultrasound: No sonographic evidence for malignancy in the right breast. Benign cysts (8) Acute kidney injury: Code(s): N17.9 - Acute kidney failure, unspecified Status: Acute Assessment and Plan: Acute kidney injury likely related to septic shock, hypotension, UTI, bacteremia -will obtain noninvasive hemodynamic monitoring to evaluate if patient is fluid responsive -lactic acid and creatinine back to normal -monitor urine output, renal function and electrolytes (9) Thyroid nodule: Code(s): E04.1 - Nontoxic single thyroid nodule Status: Acute Assessment and Plan: 12/20/2020 Thyroid ultrasound: Multiple likely benign cystic or nearly entirely cystic bilateral thyroid nodules which do not meet consensus criteria for either biopsy or follow-up. (10) DVT prophylaxis: Code(s): Z29.9 - Encounter for prophylactic measures, unspecified Status: Acute Assessment and Plan: SCDs (11) Dietary counseling and surveillance: Code(s): Z71.3 - Dietary counseling and surveillance Status: Acute Assessment and Plan: On tube feeds, at goal and tolerating Additional Plan Discussed with Lucille Fernandez, patient's daughter and power of [employer]. Updated her with patient's condition and plan of care. I answered all questions. Code status: Do not resuscitate Critical care time spent: 31 minutes Due to a high probability of clinically significant, life threatening deterioration, the patient required my highest level of preparedness to intervene emergently and I personally spent this critical care time directly and personally managing the patient. This critical care time included obtaining a history; examining t
[2020-12-22 12:05] LABS: Glucose Point of Care 131 (65-105)
--- NOTE | 2020-12-22 14:08 | PM.IMPN ---
Progress Note: A&P Assessment and Plan (1) Septicemia: Code(s): A41.9 - Sepsis, unspecified organism Status: Acute Assessment and Plan: 12/21/20 15:35 Patient has obstructive urinary tract infection. She has had a history of having E coli with ESBL recently. It was sensitive to Zosyn. Patient could also has aspiration pneumonia. Blood cultures are pending. I spoke with the pre school manager who agreed that we could take the patient back to ICU if she does need a central line vasopressors. She has had 2 L of fluid at this time. Will give her 1 more bolus and if her blood pressure does not improve then will need to put a central line in take her to ICU. I did speak with the daughter Lucille who is agreeable to this. The patient is a DNR but the power insurance defense attorney will allow the central line and vasopressors. 12/20/20 12:45 Patient 80-year-old female resident of nursing patient was unresponsive and brought emergency department for further evaluation CT scan of the abdomen and pelvis showed Right nephrolithiasis probable obstructing 3 x 10 mm calculus or calculi at right ureteropelvic junction with moderate right hydronephrosis, patient was seen by urologist was taken to the urology lab and had a cystoscopy, retrograde pyelogram and right ureteral stent placement, cloud infectious urine was collected, hypotensive, most likely patient has sepsis, secondary to UTI pyelonephritis patient started on imipenem and vancomycin, also concern the patient may have aspiration pneumonia on a CT scan of the chest however patient is treated appropriately with imipenem and vancomycin, currently patient is in ICU unresponsive, unable to provide any review of symptoms or history. Will continue to monitor and appreciate pre school manager and patient will be seen by urologist further recommendation to follow. 12/21 patient blood and urine culture is growing E coli continued imipenem and stopped the vancomycin by the pre school manager, was seen by urologist and cystoscopy and stent placed, currently on Levophed, patient is clinically stable, unable to provider any ROS. once off the Levophed will transfer patient out of ICU, once clinically stable will start PT/OT. 12/22 patient blood and urine culture is growing E coli ESBL patient is on imipenem patient will need antibiotics for total of 10 days, 02/12, is also concern the patient may have aspiration pneumonia will continue imipenem repeat chest x-ray today patient is more interactive opens her eyes however unable to communicate, will transfer patient out of ICU today, is tolerating Gtube feeding, will have a PT OT evaluate the patient (2) UTI (urinary tract infection): Code(s): N39.0 - Urinary tract infection, site not specified Status: Acute Assessment and Plan: Urine culture is growing E coli currently on imipenem will follow-up urine culture and sensitivity (3) Acute and chronic respiratory failure with hypoxia: Code(s): J96.21 - Acute and chronic respiratory failure with hypoxia Status: Acute Assessment and Plan: At this time due to her unresponsiveness in her history of aspiration. It was reported that the patient had been vomiting and suspect that she is aspirating. Patient is on 5 L on a non-rebreather and satting 100% at this time. Continue with inhalers. Patient is being swabbed for COVID-19. She had tested positive back in September of 2020. She is placed in isolation. (4) Obstruction of right ureteropelvic junction due to stone: Code(s): N20.1 - Calculus of ureter Status: Acute Assessment and Plan: Urology has seen the patient and placed a ureteral stent. She is on Zosyn. (5) DM2 (diabetes mellitus, type 2): Code(s): E11.9 - Type 2 diabetes mellitus without complications Status: Chronic Assessment and Plan: I am holding her tube feedings at this time. She is on IV fluids. Will do a sliding scale every 6 hours. A1c 6.3. (6) Thyroid nodule:
--- NOTE | 2020-12-22 15:38 | PC.NURSE ---
Transferred patient to 325 downgraded to medical status. Report given to Baljeet VARGAS. Patient transferred via bed with 2L nasal cannula and tube feed sent with patient. Medications handed to unit secretary with chart at [id number]
--- NOTE | 2020-12-22 16:14 | PC.NURSE ---
Moved to 3rd med surg 1545.
[2020-12-22 18:43] LABS: Glucose Point of Care 127 (65-105)
[2020-12-23 00:58] LABS: Glucose Point of Care 108 (65-105)
[2020-12-23 06:00] VITALS: BP 152/69; PULSE 99; RESP 20; TEMP 37.2; O2SAT 96
[2020-12-23 06:05] LABS: Glucose Point of Care 126 (65-105)
[2020-12-23 06:23] LABS: Hematocrit 34.3 % (37.0-47.0); Hemoglobin 10.9 g/dL (12.0-15.0); Immature Platelet Fraction Pct 5.2 % (0.9-11.2); Mean Corpuscular HGB Conc 31.8 g/dl (32-36); Mean Corpuscular Hemoglobin 28.8 pg (26-34); Mean Corpuscular Volume 90.7 fl (80-100); Mean Platelet Volume 11.5 fl (7.4-10.4); Platelet Count Result 143 k/mm3 (150-375); Red Blood Count 3.78 M/mm3 (4.2-5.4); Red Cell Distribution Width 14.7 % (11.5-14.5); White Blood Count 14.5 K/mm3 (4.5-10.0)
[2020-12-23 06:37] LABS: Alanine Aminotransferase 16 U/L (4-35); Albumin Level 2.9 g/dL (3.5-5.1); Alkaline Phosphatase 96 U/L (38-126); Anion Gap 5 mmol/L (8-16); Aspartate Amino Transferase 18 U/L (14-36); Bilirubin,Total 0.4 mg/dL (0.2-1.3); Blood Urea Nitrogen 19 mg/dL (7-17); Calcium 8.8 mg/dL (8.4-10.2); Carbon Dioxide 26 mmol/L (22-30); Chloride 108 mmol/L (98-107); Estimated CRCL calculation 79 ml/min; Estimated Glomerular Filt Rate > 60; Glucose 149 mg/dL (65-105); Lactic Acid Reflex 2.5 mmol/L (0.7-2.1); Magnesium 1.7 mg/dL (1.6-2.3); Phosphorus 4.2 mg/dL (2.5-4.5); Potassium 3.7 mmol/L (3.4-5.0); Sodium 139 mmol/L (137-145)
[2020-12-23 09:18] LABS: Reflex Lactic Acid Yes or No Add Lactic
[2020-12-23 09:27] VITALS: O2SAT 92
[2020-12-23 09:29] LABS: Lactic Acid Reflex 1.8 mmol/L (0.7-2.1)
[2020-12-23 09:58] LABS: Vancomycin Trough < 5.0 ug/mL (10.0-20.0)
[2020-12-23 12:06] LABS: Glucose Point of Care 101 (65-105)
[2020-12-23 14:00] VITALS: BP 126/52; PULSE 83; RESP 22; TEMP 36.4; O2SAT 100
--- NOTE | 2020-12-23 14:44 | PM.IMPN ---
Progress Note: A&P Assessment and Plan (1) Septicemia: Code(s): A41.9 - Sepsis, unspecified organism Status: Acute Assessment and Plan: 12/23/20 14:44 Patient has obstructive urinary tract infection. She has had a history of having E coli with ESBL recently. It was sensitive to Zosyn. Patient could also has aspiration pneumonia. Blood cultures are pending. I spoke with the move coordinator who agreed that we could take the patient back to ICU if she does need a central line vasopressors. She has had 2 L of fluid at this time. Will give her 1 more bolus and if her blood pressure does not improve then will need to put a central line in take her to ICU. I did speak with the daughter Lucille who is agreeable to this. The patient is a DNR but the power estate attorney will allow the central line and vasopressors. 12/20/20 12:45 Patient 80-year-old female resident of nursing patient was unresponsive and brought emergency department for further evaluation CT scan of the abdomen and pelvis showed Right nephrolithiasis probable obstructing 3 x 10 mm calculus or calculi at right ureteropelvic junction with moderate right hydronephrosis, patient was seen by urologist was taken to the urology lab and had a cystoscopy, retrograde pyelogram and right ureteral stent placement, cloud infectious urine was collected, hypotensive, most likely patient has sepsis, secondary to UTI pyelonephritis patient started on imipenem and vancomycin, also concern the patient may have aspiration pneumonia on a CT scan of the chest however patient is treated appropriately with imipenem and vancomycin, currently patient is in ICU unresponsive, unable to provide any review of symptoms or history. Will continue to monitor and appreciate move coordinator and patient will be seen by urologist further recommendation to follow. 12/21 patient blood and urine culture is growing E coli continued imipenem and stopped the vancomycin by the move coordinator, was seen by urologist and cystoscopy and stent placed, currently on Levophed, patient is clinically stable, unable to provider any ROS. once off the Levophed will transfer patient out of ICU, once clinically stable will start PT/OT. 12/22 patient blood and urine culture is growing E coli ESBL patient is on imipenem patient will need antibiotics for total of 10 days, 02/12, is also concern the patient may have aspiration pneumonia will continue imipenem repeat chest x-ray today patient is more interactive opens her eyes however unable to communicate, will transfer patient out of ICU today, is tolerating Gtube feeding, will have a PT OT evaluate the patient 12/23 patient blood and urine culture is growing E coli ESBL patient is on imipenem patient will need antibiotics for total of 10 days, 03/14, is also concern the patient may have aspiration pneumonia will continue imipenem repeat chest x-eulogio 12/22 concerned for pneumonia, patient is more interactive opens her eyes however unable to communicate, patient was transferred patient out of ICU on 12/22, is tolerating Gtube feeding, will have a PT OT evaluate the patient (2) UTI (urinary tract infection): Code(s): N39.0 - Urinary tract infection, site not specified Status: Acute Assessment and Plan: Urine culture is growing E coli currently on imipenem will follow-up urine culture and sensitivity (3) Acute and chronic respiratory failure with hypoxia: Code(s): J96.21 - Acute and chronic respiratory failure with hypoxia Status: Acute Assessment and Plan: At this time due to her unresponsiveness in her history of aspiration. It was reported that the patient had been vomiting and suspect that she is aspirating. Patient is on 5 L on a non-rebreather and satting 100% at this time. Continue with inhalers. Patient is being swabbed for COVID-19. She had tested positive back in September of 2020. She is placed in isolation. (4) Obstruction of right ureteropelvic junction due to stone:
[2020-12-23 18:20] LABS: Glucose Point of Care 119 (65-105)
[2020-12-23 20:00] VITALS: O2SAT 100
[2020-12-23 22:00] VITALS: BP 129/59; PULSE 89; RESP 18; TEMP 36.9; O2SAT 100
[2020-12-23 22:28] LABS: Glucose Point of Care 114 (65-105)
[2020-12-24 00:48] LABS: Glucose Point of Care 119 (65-105)
[2020-12-24 06:00] VITALS: BP 145/66; PULSE 98; RESP 20; TEMP 36.9; O2SAT 97
[2020-12-24 06:42] LABS: Glucose Point of Care 116 (65-105)
[2020-12-24 06:46] LABS: Hematocrit 35.2 % (37.0-47.0); Hemoglobin 11.1 g/dL (12.0-15.0); Mean Corpuscular HGB Conc 31.5 g/dl (32-36); Mean Corpuscular Hemoglobin 28.2 pg (26-34); Mean Corpuscular Volume 89.3 fl (80-100); Mean Platelet Volume 11.3 fl (7.4-10.4); Platelet Count Result 180 k/mm3 (150-375); Red Blood Count 3.94 M/mm3 (4.2-5.4); Red Cell Distribution Width 14.3 % (11.5-14.5); White Blood Count 13.9 K/mm3 (4.5-10.0)
[2020-12-24 07:01] LABS: Alanine Aminotransferase 13 U/L (4-35); Albumin Level 2.8 g/dL (3.5-5.1); Alkaline Phosphatase 92 U/L (38-126); Anion Gap 5 mmol/L (8-16); Aspartate Amino Transferase 18 U/L (14-36); Bilirubin,Total 0.2 mg/dL (0.2-1.3); Blood Urea Nitrogen 21 mg/dL (7-17); Calcium 8.7 mg/dL (8.4-10.2); Carbon Dioxide 30 mmol/L (22-30); Chloride 104 mmol/L (98-107); Estimated CRCL calculation 78 ml/min; Estimated Glomerular Filt Rate > 60; Glucose 130 mg/dL (65-105); Lactic Acid Reflex 1.9 mmol/L (0.7-2.1); Magnesium 1.7 mg/dL (1.6-2.3); Phosphorus 4.5 mg/dL (2.5-4.5); Potassium 4.5 mmol/L (3.4-5.0); Sodium 139 mmol/L (137-145)
[2020-12-24 08:00] VITALS: PULSE 98; RESP 20; O2SAT 97
--- NOTE | 2020-12-24 11:22 | PCNFU ---
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 Goal: Patient to meet estimated nutritional needs. Patient has met goal. No new goal. Pt current nutrition is Glucerna 1.2 at 65 ml/hr. Last recorded weight is 84.3 kg up from 80.1 kg on admit. Bowel Motility:+BM reported 12/21 Labs Reviewed: Glu 130,BUN 21,Cr 0.5,Alb 2.8 Meds Noted:NovoLog Additional Notes: Nutrition follow up. Spoke with nursing today, patient is tolerating tube feedings of Glucerna 1.2 at 65 ml/hr. Current tube feeding are providing patient with 1716 kcals and 86 gms protein. Meeting 100% of patients caloric needs. Agree with diet orders. Monitoring:weight, labs, enteral feedings every Sunday/Sunday.
[2020-12-24 12:33] LABS: Glucose Point of Care 120 (65-105)
--- NOTE | 2020-12-24 13:35 | PM.IMPN ---
Progress Note: A&P Assessment and Plan (1) Septicemia: Code(s): A41.9 - Sepsis, unspecified organism Status: Acute Assessment and Plan: 12/24/20 13:35 Patient has obstructive urinary tract infection. She has had a history of having E coli with ESBL recently. It was sensitive to Zosyn. Patient could also has aspiration pneumonia. Blood cultures are pending. I spoke with the correspondence school instructor who agreed that we could take the patient back to ICU if she does need a central line vasopressors. She has had 2 L of fluid at this time. Will give her 1 more bolus and if her blood pressure does not improve then will need to put a central line in take her to ICU. I did speak with the daughter Lucille who is agreeable to this. The patient is a DNR but the power appraiser art will allow the central line and vasopressors. 12/20/20 12:45 Patient 80-year-old female resident of nursing patient was unresponsive and brought emergency department for further evaluation CT scan of the abdomen and pelvis showed Right nephrolithiasis probable obstructing 3 x 10 mm calculus or calculi at right ureteropelvic junction with moderate right hydronephrosis, patient was seen by urologist was taken to the urology lab and had a cystoscopy, retrograde pyelogram and right ureteral stent placement, cloud infectious urine was collected, hypotensive, most likely patient has sepsis, secondary to UTI pyelonephritis patient started on imipenem and vancomycin, also concern the patient may have aspiration pneumonia on a CT scan of the chest however patient is treated appropriately with imipenem and vancomycin, currently patient is in ICU unresponsive, unable to provide any review of symptoms or history. Will continue to monitor and appreciate correspondence school instructor and patient will be seen by urologist further recommendation to follow. 12/21 patient blood and urine culture is growing E coli continued imipenem and stopped the vancomycin by the correspondence school instructor, was seen by urologist and cystoscopy and stent placed, currently on Levophed, patient is clinically stable, unable to provider any ROS. once off the Levophed will transfer patient out of ICU, once clinically stable will start PT/OT. 12/22 patient blood and urine culture is growing E coli ESBL patient is on imipenem patient will need antibiotics for total of 10 days, 02/12, is also concern the patient may have aspiration pneumonia will continue imipenem repeat chest x-ray today patient is more interactive opens her eyes however unable to communicate, will transfer patient out of ICU today, is tolerating Gtube feeding, will have a PT OT evaluate the patient 12/23 patient blood and urine culture is growing E coli ESBL patient is on imipenem patient will need antibiotics for total of 10 days, 03/14, is also concern the patient may have aspiration pneumonia will continue imipenem repeat chest x-eulogio 12/22 concerned for pneumonia, patient is more interactive opens her eyes however unable to communicate, patient was transferred patient out of ICU on 12/22, is tolerating Gtube feeding, will have a PT OT evaluate the patient 12/24 patient blood and urine culture is growing E coli ESBL patient is on imipenem patient will need antibiotics for total of 10 days, 04/14, patient will complete her IV abx on 12/28, will discharge the patient, there is also concern the patient may have aspiration pneumonia will continue imipenem, repeated chest x-eulogio 12/22 concerned for pneumonia, patient is more interactive opens her eyes however unable to communicate, patient was transferred patient out of ICU on 12/22, is tolerating Gtube feeding, will have a PT OT evaluate the patient (2) UTI (urinary tract infection): Code(s): N39.0 - Urinary tract infection, site not specified Status: Acute Assessment and Plan: Urine culture is growing E coli currently on imipenem will follow-up urine culture and sensitivity (3) Acute and chronic respiratory failure with hypoxia: C
[2020-12-24 14:00] VITALS: BP 132/51; PULSE 103; RESP 22; TEMP 36.8; O2SAT 90
[2020-12-24 20:00] VITALS: O2SAT 90
[2020-12-25] VITALS: BP 141/61; PULSE 102; RESP 20; TEMP 36.3; O2SAT 96
[2020-12-25 00:57] LABS: Glucose Point of Care 119 (65-105)
[2020-12-25 05:47] VITALS: O2SAT 91
[2020-12-25 06:12] LABS: Glucose Point of Care 153 (65-105)
[2020-12-25 07:35] LABS: Hematocrit 37.5 % (37.0-47.0); Hemoglobin 11.7 g/dL (12.0-15.0); Mean Corpuscular HGB Conc 31.2 g/dl (32-36); Mean Corpuscular Hemoglobin 28.7 pg (26-34); Mean Corpuscular Volume 91.9 fl (80-100); Mean Platelet Volume 11.3 fl (7.4-10.4); Platelet Count Result 207 k/mm3 (150-375); Red Blood Count 4.08 M/mm3 (4.2-5.4); Red Cell Distribution Width 14.3 % (11.5-14.5); White Blood Count 14.6 K/mm3 (4.5-10.0)
[2020-12-25 07:40] LABS: Alanine Aminotransferase 14 U/L (4-35); Albumin Level 3.3 g/dL (3.5-5.1); Alkaline Phosphatase 99 U/L (38-126); Anion Gap 6 mmol/L (8-16); Aspartate Amino Transferase 22 U/L (14-36); Bilirubin,Total 0.4 mg/dL (0.2-1.3); Blood Urea Nitrogen 19 mg/dL (7-17); Calcium 9.1 mg/dL (8.4-10.2); Carbon Dioxide 27 mmol/L (22-30); Chloride 104 mmol/L (98-107); Estimated CRCL calculation 78 ml/min; Estimated Glomerular Filt Rate > 60; Glucose 142 mg/dL (65-105); Magnesium 1.8 mg/dL (1.6-2.3); Phosphorus 4.1 mg/dL (2.5-4.5); Potassium 4.3 mmol/L (3.4-5.0); Sodium 137 mmol/L (137-145)
[2020-12-25 09:57] LABS: Lactic Acid Reflex 1.7 mmol/L (0.7-2.1)
[2020-12-25 12:16] LABS: Glucose Point of Care 140 (65-105)
--- NOTE | 2020-12-25 12:28 | PM.IMPN ---
Progress Note: A&P Assessment and Plan (1) Septicemia: Code(s): A41.9 - Sepsis, unspecified organism Status: Acute Assessment and Plan: 12/25/20 12:28 Patient has obstructive urinary tract infection. She has had a history of having E coli with ESBL recently. It was sensitive to Zosyn. Patient could also has aspiration pneumonia. Blood cultures are pending. I spoke with the senior quality engineer who agreed that we could take the patient back to ICU if she does need a central line vasopressors. She has had 2 L of fluid at this time. Will give her 1 more bolus and if her blood pressure does not improve then will need to put a central line in take her to ICU. I did speak with the daughter Lucille who is agreeable to this. The patient is a DNR but the power cardiology physician assistant will allow the central line and vasopressors. 12/20/20 12:45 Patient 80-year-old female resident of nursing patient was unresponsive and brought emergency department for further evaluation CT scan of the abdomen and pelvis showed Right nephrolithiasis probable obstructing 3 x 10 mm calculus or calculi at right ureteropelvic junction with moderate right hydronephrosis, patient was seen by urologist was taken to the urology lab and had a cystoscopy, retrograde pyelogram and right ureteral stent placement, cloud infectious urine was collected, hypotensive, most likely patient has sepsis, secondary to UTI pyelonephritis patient started on imipenem and vancomycin, also concern the patient may have aspiration pneumonia on a CT scan of the chest however patient is treated appropriately with imipenem and vancomycin, currently patient is in ICU unresponsive, unable to provide any review of symptoms or history. Will continue to monitor and appreciate senior quality engineer and patient will be seen by urologist further recommendation to follow. 12/21 patient blood and urine culture is growing E coli continued imipenem and stopped the vancomycin by the senior quality engineer, was seen by urologist and cystoscopy and stent placed, currently on Levophed, patient is clinically stable, unable to provider any ROS. once off the Levophed will transfer patient out of ICU, once clinically stable will start PT/OT. 12/22 patient blood and urine culture is growing E coli ESBL patient is on imipenem patient will need antibiotics for total of 10 days, 02/12, is also concern the patient may have aspiration pneumonia will continue imipenem repeat chest x-ray today patient is more interactive opens her eyes however unable to communicate, will transfer patient out of ICU today, is tolerating Gtube feeding, will have a PT OT evaluate the patient 12/23 patient blood and urine culture is growing E coli ESBL patient is on imipenem patient will need antibiotics for total of 10 days, 03/14, is also concern the patient may have aspiration pneumonia will continue imipenem repeat chest x-eulogio 12/22 concerned for pneumonia, patient is more interactive opens her eyes however unable to communicate, patient was transferred patient out of ICU on 12/22, is tolerating Gtube feeding, will have a PT OT evaluate the patient 12/24 patient blood and urine culture is growing E coli ESBL patient is on imipenem patient will need antibiotics for total of 10 days, 04/14, patient will complete her IV abx on 12/28, will discharge the patient, there is also concern the patient may have aspiration pneumonia will continue imipenem, repeated chest x-uelogio 12/22 concerned for pneumonia, patient is more interactive opens her eyes however unable to communicate, patient was transferred patient out of ICU on 12/22, is tolerating Gtube feeding, will have a PT OT evaluate the patient 12/25 patient remains clinically stable will continue present management, patient blood and urine culture is growing E coli ESBL patient is on imipenem patient will need antibiotics for total of 10 days, 05/14, patient will complete her IV abx on 12/28, will discharge her back to [facility] (2) UTI (urinary tract in
[2020-12-25 14:00] VITALS: BP 153/82; PULSE 104; RESP 20; TEMP 36.7; O2SAT 99
[2020-12-25 16:32] VITALS: O2SAT 93
[2020-12-25 17:44] LABS: Glucose Point of Care 128 (65-105)
[2020-12-26] VITALS: BP 146/61; PULSE 93; RESP 20; TEMP 36.7; O2SAT 94
[2020-12-26 01:34] LABS: Glucose Point of Care 123 (65-105)
[2020-12-26 06:11] LABS: Glucose Point of Care 141 (65-105)
--- NOTE | 2020-12-26 10:16 | PM.IMPN ---
Progress Note: A&P Assessment and Plan (1) Septicemia: Code(s): A41.9 - Sepsis, unspecified organism Status: Acute Assessment and Plan: 12/26/20 10:16 Patient has obstructive urinary tract infection. She has had a history of having E coli with ESBL recently. It was sensitive to Zosyn. Patient could also has aspiration pneumonia. Blood cultures are pending. I spoke with the biodiesel technology manager who agreed that we could take the patient back to ICU if she does need a central line vasopressors. She has had 2 L of fluid at this time. Will give her 1 more bolus and if her blood pressure does not improve then will need to put a central line in take her to ICU. I did speak with the daughter Lucille who is agreeable to this. The patient is a DNR but the power energy attorney will allow the central line and vasopressors. 12/20/20 12:45 Patient 80-year-old female resident of nursing patient was unresponsive and brought emergency department for further evaluation CT scan of the abdomen and pelvis showed Right nephrolithiasis probable obstructing 3 x 10 mm calculus or calculi at right ureteropelvic junction with moderate right hydronephrosis, patient was seen by urologist was taken to the urology lab and had a cystoscopy, retrograde pyelogram and right ureteral stent placement, cloud infectious urine was collected, hypotensive, most likely patient has sepsis, secondary to UTI pyelonephritis patient started on imipenem and vancomycin, also concern the patient may have aspiration pneumonia on a CT scan of the chest however patient is treated appropriately with imipenem and vancomycin, currently patient is in ICU unresponsive, unable to provide any review of symptoms or history. Will continue to monitor and appreciate biodiesel technology manager and patient will be seen by urologist further recommendation to follow. 12/21 patient blood and urine culture is growing E coli continued imipenem and stopped the vancomycin by the biodiesel technology manager, was seen by urologist and cystoscopy and stent placed, currently on Levophed, patient is clinically stable, unable to provider any ROS. once off the Levophed will transfer patient out of ICU, once clinically stable will start PT/OT. 12/22 patient blood and urine culture is growing E coli ESBL patient is on imipenem patient will need antibiotics for total of 10 days, 02/12, is also concern the patient may have aspiration pneumonia will continue imipenem repeat chest x-ray today patient is more interactive opens her eyes however unable to communicate, will transfer patient out of ICU today, is tolerating Gtube feeding, will have a PT OT evaluate the patient 12/23 patient blood and urine culture is growing E coli ESBL patient is on imipenem patient will need antibiotics for total of 10 days, 03/14, is also concern the patient may have aspiration pneumonia will continue imipenem repeat chest x-eulogio 12/22 concerned for pneumonia, patient is more interactive opens her eyes however unable to communicate, patient was transferred patient out of ICU on 12/22, is tolerating Gtube feeding, will have a PT OT evaluate the patient 12/24 patient blood and urine culture is growing E coli ESBL patient is on imipenem patient will need antibiotics for total of 10 days, 04/14, patient will complete her IV abx on 12/28, will discharge the patient, there is also concern the patient may have aspiration pneumonia will continue imipenem, repeated chest x-eulogio 12/22 concerned for pneumonia, patient is more interactive opens her eyes however unable to communicate, patient was transferred patient out of ICU on 12/22, is tolerating Gtube feeding, will have a PT OT evaluate the patient 12/25 patient remains clinically stable will continue present management, patient blood and urine culture is growing E coli ESBL patient is on imipenem patient will need antibiotics for total of 10 days, 05/14, patient will complete her IV abx on 12/28, will discharge her back to care home. 12/26 patient remains cli
[2020-12-26 12:40] LABS: Glucose Point of Care 136 (65-105)
[2020-12-26 14:00] VITALS: BP 140/65; PULSE 95; RESP 20; TEMP 36.2; O2SAT 93
[2020-12-26 17:40] LABS: Glucose Point of Care 127 (65-105)
[2020-12-26 22:00] VITALS: BP 142/62; PULSE 96; RESP 16; TEMP 37.2; O2SAT 96
[2020-12-27 01:58] LABS: Glucose Point of Care 117 (65-105)
[2020-12-27 06:00] VITALS: BP 147/57; PULSE 90; RESP 18; TEMP 36.4; O2SAT 92
[2020-12-27 06:29] LABS: Glucose Point of Care 139 (65-105)
[2020-12-27 08:00] VITALS: O2SAT 92
[2020-12-27 12:25] LABS: Glucose Point of Care 137 (65-105)
[2020-12-27 14:00] VITALS: BP 129/62; PULSE 91; RESP 18; TEMP 36.7; O2SAT 95
--- NOTE | 2020-12-27 14:43 | PM.IMPN ---
Progress Note: A&P Assessment and Plan (1) Septicemia: Code(s): A41.9 - Sepsis, unspecified organism Status: Acute Assessment and Plan: Patient has obstructive urinary tract infection. She has had a history of having E coli with ESBL recently. It was sensitive to Zosyn. Patient could also has aspiration pneumonia. Blood cultures are pending. I spoke with the glass artist who agreed that we could take the patient back to ICU if she does need a central line vasopressors. She has had 2 L of fluid at this time. Will give her 1 more bolus and if her blood pressure does not improve then will need to put a central line in take her to ICU. I did speak with the daughter Lucille who is agreeable to this. The patient is a DNR but the power life scientists will allow the central line and vasopressors. 12/20/20 12:45 Patient 80-year-old female resident of nursing patient was unresponsive and brought emergency department for further evaluation CT scan of the abdomen and pelvis showed Right nephrolithiasis probable obstructing 3 x 10 mm calculus or calculi at right ureteropelvic junction with moderate right hydronephrosis, patient was seen by urologist was taken to the urology lab and had a cystoscopy, retrograde pyelogram and right ureteral stent placement, cloud infectious urine was collected, hypotensive, most likely patient has sepsis, secondary to UTI pyelonephritis patient started on imipenem and vancomycin, also concern the patient may have aspiration pneumonia on a CT scan of the chest however patient is treated appropriately with imipenem and vancomycin, currently patient is in ICU unresponsive, unable to provide any review of symptoms or history. Will continue to monitor and appreciate glass artist and patient will be seen by urologist further recommendation to follow. 12/21 patient blood and urine culture is growing E coli continued imipenem and stopped the vancomycin by the glass artist, was seen by urologist and cystoscopy and stent placed, currently on Levophed, patient is clinically stable, unable to provider any ROS. once off the Levophed will transfer patient out of ICU, once clinically stable will start PT/OT. 12/22 patient blood and urine culture is growing E coli ESBL patient is on imipenem patient will need antibiotics for total of 10 days, 02/12, is also concern the patient may have aspiration pneumonia will continue imipenem repeat chest x-ray today patient is more interactive opens her eyes however unable to communicate, will transfer patient out of ICU today, is tolerating Gtube feeding, will have a PT OT evaluate the patient 12/23 patient blood and urine culture is growing E coli ESBL patient is on imipenem patient will need antibiotics for total of 10 days, 03/14, is also concern the patient may have aspiration pneumonia will continue imipenem repeat chest x-eulogio 12/22 concerned for pneumonia, patient is more interactive opens her eyes however unable to communicate, patient was transferred patient out of ICU on 12/22, is tolerating Gtube feeding, will have a PT OT evaluate the patient 12/24 patient blood and urine culture is growing E coli ESBL patient is on imipenem patient will need antibiotics for total of 10 days, 04/14, patient will complete her IV abx on 12/28, will discharge the patient, there is also concern the patient may have aspiration pneumonia will continue imipenem, repeated chest x-eulogio 12/22 concerned for pneumonia, patient is more interactive opens her eyes however unable to communicate, patient was transferred patient out of ICU on 12/22, is tolerating Gtube feeding, will have a PT OT evaluate the patient 12/25 patient remains clinically stable will continue present management, patient blood and urine culture is growing E coli ESBL patient is on imipenem patient will need antibiotics for total of 10 days, 05/14, patient will complete her IV abx on 12/28, will discharge her back to half-way. 12/26 patient remains clinically stable wi
[2020-12-27 18:05] LABS: Glucose Point of Care 145 (65-105)
[2020-12-27 22:00] VITALS: BP 145/56; PULSE 94; RESP 18; TEMP 36.3; O2SAT 94
[2020-12-28 00:18] LABS: Glucose Point of Care 118 (65-105)
[2020-12-28 06:00] VITALS: BP 122/58; PULSE 88; RESP 18; TEMP 36; O2SAT 95
[2020-12-28 06:25] LABS: Glucose Point of Care 124 (65-105)
[2020-12-28 09:25] VITALS: O2SAT 93
--- NOTE | 2020-12-28 09:52 | PM.IMPN ---
Progress Note: A&P Assessment and Plan (1) Septicemia: Code(s): A41.9 - Sepsis, unspecified organism Status: Acute Assessment and Plan: Patient has obstructive urinary tract infection. She has had a history of having E coli with ESBL recently. It was sensitive to Zosyn. Patient could also has aspiration pneumonia. Blood cultures are pending. I spoke with the cobol application developer who agreed that we could take the patient back to ICU if she does need a central line vasopressors. She has had 2 L of fluid at this time. Will give her 1 more bolus and if her blood pressure does not improve then will need to put a central line in take her to ICU. I did speak with the daughter Lucille who is agreeable to this. The patient is a DNR but the power attorney at law will allow the central line and vasopressors. 12/20/20 12:45 Patient 80-year-old female resident of nursing patient was unresponsive and brought emergency department for further evaluation CT scan of the abdomen and pelvis showed Right nephrolithiasis probable obstructing 3 x 10 mm calculus or calculi at right ureteropelvic junction with moderate right hydronephrosis, patient was seen by urologist was taken to the urology lab and had a cystoscopy, retrograde pyelogram and right ureteral stent placement, cloud infectious urine was collected, hypotensive, most likely patient has sepsis, secondary to UTI pyelonephritis patient started on imipenem and vancomycin, also concern the patient may have aspiration pneumonia on a CT scan of the chest however patient is treated appropriately with imipenem and vancomycin, currently patient is in ICU unresponsive, unable to provide any review of symptoms or history. Will continue to monitor and appreciate cobol application developer and patient will be seen by urologist further recommendation to follow. 12/21 patient blood and urine culture is growing E coli continued imipenem and stopped the vancomycin by the cobol application developer, was seen by urologist and cystoscopy and stent placed, currently on Levophed, patient is clinically stable, unable to provider any ROS. once off the Levophed will transfer patient out of ICU, once clinically stable will start PT/OT. 12/22 patient blood and urine culture is growing E coli ESBL patient is on imipenem patient will need antibiotics for total of 10 days, 02/12, is also concern the patient may have aspiration pneumonia will continue imipenem repeat chest x-ray today patient is more interactive opens her eyes however unable to communicate, will transfer patient out of ICU today, is tolerating Gtube feeding, will have a PT OT evaluate the patient 12/23 patient blood and urine culture is growing E coli ESBL patient is on imipenem patient will need antibiotics for total of 10 days, 03/14, is also concern the patient may have aspiration pneumonia will continue imipenem repeat chest x-eulogio 12/22 concerned for pneumonia, patient is more interactive opens her eyes however unable to communicate, patient was transferred patient out of ICU on 12/22, is tolerating Gtube feeding, will have a PT OT evaluate the patient 12/24 patient blood and urine culture is growing E coli ESBL patient is on imipenem patient will need antibiotics for total of 10 days, 04/14, patient will complete her IV abx on 12/28, will discharge the patient, there is also concern the patient may have aspiration pneumonia will continue imipenem, repeated chest x-eulogio 12/22 concerned for pneumonia, patient is more interactive opens her eyes however unable to communicate, patient was transferred patient out of ICU on 12/22, is tolerating Gtube feeding, will have a PT OT evaluate the patient 12/25 patient remains clinically stable will continue present management, patient blood and urine culture is growing E coli ESBL patient is on imipenem patient will need antibiotics for total of 10 days, 05/14, patient will complete her IV abx on 12/28, will discharge her back to senior living. 12/26 patient remains clinically stable wi
[2020-12-28 12:36] LABS: Glucose Point of Care 134 (65-105)
[2020-12-28 14:00] VITALS: BP 130/54; PULSE 96; RESP 20; TEMP 36.7; O2SAT 94
[2020-12-28 18:16] LABS: Glucose Point of Care 109 (65-105)
[2020-12-28 19:45] VITALS: BP 135/67; PULSE 96; RESP 20; TEMP 36.4; O2SAT 96
--- NOTE | 2021-01-09 16:06 | PM.DS ---
DS: Admitting Diagnosis Admitting Diagnosis Admitting Diagnosis: Unresponsive DS: Discharge Diagnosis Discharge Diagnosis (1) Septicemia: Code(s): A41.9 - Sepsis, unspecified organism Status: Acute Assessment and Plan: Patient has obstructive urinary tract infection. She has had a history of having E coli with ESBL recently. It was sensitive to Zosyn. Patient could also has aspiration pneumonia. Blood cultures are pending. I spoke with the warp placer who agreed that we could take the patient back to ICU if she does need a central line vasopressors. She has had 2 L of fluid at this time. Will give her 1 more bolus and if her blood pressure does not improve then will need to put a central line in take her to ICU. I did speak with the daughter Lucille who is agreeable to this. The patient is a DNR but the power employment law attorney will allow the central line and vasopressors. 12/20/20 12:45 Patient 80-year-old female resident of nursing patient was unresponsive and brought emergency department for further evaluation CT scan of the abdomen and pelvis showed Right nephrolithiasis probable obstructing 3 x 10 mm calculus or calculi at right ureteropelvic junction with moderate right hydronephrosis, patient was seen by urologist was taken to the urology lab and had a cystoscopy, retrograde pyelogram and right ureteral stent placement, cloud infectious urine was collected, hypotensive, most likely patient has sepsis, secondary to UTI pyelonephritis patient started on imipenem and vancomycin, also concern the patient may have aspiration pneumonia on a CT scan of the chest however patient is treated appropriately with imipenem and vancomycin, currently patient is in ICU unresponsive, unable to provide any review of symptoms or history. Will continue to monitor and appreciate warp placer and patient will be seen by urologist further recommendation to follow. 12/21 patient blood and urine culture is growing E coli continued imipenem and stopped the vancomycin by the warp placer, was seen by urologist and cystoscopy and stent placed, currently on Levophed, patient is clinically stable, unable to provider any ROS. once off the Levophed will transfer patient out of ICU, once clinically stable will start PT/OT. 12/22 patient blood and urine culture is growing E coli ESBL patient is on imipenem patient will need antibiotics for total of 10 days, 02/12, is also concern the patient may have aspiration pneumonia will continue imipenem repeat chest x-ray today patient is more interactive opens her eyes however unable to communicate, will transfer patient out of ICU today, is tolerating Gtube feeding, will have a PT OT evaluate the patient 12/23 patient blood and urine culture is growing E coli ESBL patient is on imipenem patient will need antibiotics for total of 10 days, 03/14, is also concern the patient may have aspiration pneumonia will continue imipenem repeat chest x-eulogio 12/22 concerned for pneumonia, patient is more interactive opens her eyes however unable to communicate, patient was transferred patient out of ICU on 12/22, is tolerating Gtube feeding, will have a PT OT evaluate the patient 12/24 patient blood and urine culture is growing E coli ESBL patient is on imipenem patient will need antibiotics for total of 10 days, 04/14, patient will complete her IV abx on 12/28, will discharge the patient, there is also concern the patient may have aspiration pneumonia will continue imipenem, repeated chest x-eulogio 12/22 concerned for pneumonia, patient is more interactive opens her eyes however unable to communicate, patient was transferred patient out of ICU on 12/22, is tolerating Gtube feeding, will have a PT OT evaluate the patient 12/25 patient remains clinically stable will continue present management, patient blood and urine culture is growing E coli ESBL patient is on imipenem patient will need antibiotics for total of 10 days, 05/14, patient will complete her IV abx on 12/07
== END 2020-12-28 20:00 | DRG 853 ==
LOC: ANHED 08:01 → ANHIMU 12:28 → ANHICU 18:35 → ANH3MEDSUR 12-22 15:58
PROVIDERS: Internal Medicine; Nurse Practitioner; Urology; Admitting Provider Family Medicine; Emergency Provider General Practice; PCP Family Medicine; Visit Provider Family Medicine
PROC: 0T768DZ Dilation of Right Ureter with Intraluminal Device, Via Natural or Artificial Opening Endoscopic (ICD-10-PCS; CPT 52310; principal; 2020-12-19 13:10)
DX: A41.51 Sepsis due to Escherichia coli [E. coli] (principal); R65.21 Severe sepsis with septic shock; J69.0 Pneumonitis due to inhalation of food and vomit; J96.21 Acute and chronic respiratory failure with hypoxia; N17.9 Acute kidney failure, unspecified; Z16.12 Extended spectrum beta lactamase (ESBL) resistance; N13.6 Pyonephrosis; Z20.822 Contact with and (suspected) exposure to COVID-19; Z86.16 Personal history of COVID-19; E04.1 Nontoxic single thyroid nodule; F03.90 Unspecified dementia, unspecified severity, without behavioral disturbance, psychotic disturbance, mood disturbance, and anxiety; E11.9 Type 2 diabetes mellitus without complications; N63.0 Unspecified lump in unspecified breast; I10 Essential (primary) hypertension; F32.9 Major depressive disorder, single episode, unspecified; Z66 Do not resuscitate; Z79.4 Long term (current) use of insulin; Z79.899 Other long term (current) drug therapy; Z86.73 Personal history of transient ischemic attack (TIA), and cerebral infarction without residual deficits; Z87.891 Personal history of nicotine dependence; Z93.1 Gastrostomy status; Z96.1 Presence of intraocular lens; Z98.2 Presence of cerebrospinal fluid drainage device; Z98.41 Cataract extraction status, right eye; Z98.42 Cataract extraction status, left eye
CPT/HCPCS: 36415; 36600; 51701; 70450; 71045; 71275; 74174; 74420; 76536; 76642; 80053; 80202; 81001; 82140; 82565; 82805; 82948; 83036; 83605; 83735; 83880; 84100; 84443; 84484; 85025; 85027; 85055; 85610; 85730; 86140; 87040; 87077; 87086; 87088; 87186; 93005; 94640; 96365; 96367; 97161; 97165; 99285; A9270; C1751; C1758; C1769; C2617; C9803; J0131; J0743; J2543; J2704; J3370; J7030; J7120; Q9966; Q9967; U0003; U0005

== ENCOUNTER 2021-01-08 02:54 | Observation (INO) | payer MEDICARE, MEDICAID, SELFPAY ==
[2021-01-08] VITALS (8 sets, daily range): BP systolic 145–177; BP diastolic 69–90; PULSE 74–94; RESP 14–20; TEMP 36.3–36.6; O2SAT 94–100
--- NOTE | ~2021-01-08 | XR_ITS ---
EXAMINATION: XR G tube replacement w image EXAM DATE: 01/08/2021 04:10 INDICATION: g-tube replacement TECHNIQUE: Frontal projection(s) of the abdomen for interpretation. Image was taken after 30 cc Omnip aque 350 was injected through a gastrostomy tube. Comparison is made to prior examination from 2019. FINDINGS: Gastrostomy tube, anchor poorly visualized, but there is contrast within the stomach and du odenum. There is a right-sided double-J ureteral stent. Expected amount of colonic stool and gas. No small bowel dilation or organomegaly. There are mild bony degenerative changes. IMPRESSION: Contrast injection confirmed in stomach. Right ureteral stent in position. Reviewed, dictated and finalized at location A. FACTURING DESIGN ENGINEER IMPRESSION: Contrast injection confirmed in stomach. Right ureteral stent in po sition.
--- NOTE | 2021-01-08 04:15 | ED.GENADULT ---
HPI - General Adult General Chief complaint: Unspecified Stated complaint: G tube replacement Time Seen by Provider: 01/08/21 03:30 History of Present Illness HPI narrative: Patient is a an 80-year-old female who presents ER with dislodgment of her feeding tube. Unknown when it came out. Patient typically receives Jevity feeds through this. Patient is nonverbal. It appears this is a longstanding feeding tube as there is a note from 1 year ago that shows it was already in place. Related Data Home Medications Medication Instructions Recorded Confirmed atorvastatin 80 mg FEEDING TUBE DAILY 01/08/20 12/19/20 escitalopram oxalate 10 mg FEEDING TUBE DAILY 01/08/20 12/19/20 multivitamin with minerals 15 ml FEEDING TUBE DAILY 01/09/20 12/19/20 Xifaxan 550 mg FEEDING TUBE BID 08/18/20 12/19/20 omeprazole 20 mg FEEDING TUBE DAILY 08/18/20 12/19/20 guaifenesin 300 mg PO Q4H PRN 11/01/20 12/19/20 Allergies Allergy/AdvReac Type Severity Reaction Status Date / Time No Known Allergies Allergy Verified 12/19/20 07:27 Review of Systems Review of Systems: ROS unobtainable: Yes unobtainable due to medical condition PMFSH Past Medical History Medical History (Updated 01/08/21 @ 04:22 by Rodney Amador MD) Abnormal gag reflex Partial paralysis Aspiration pneumonia Bilateral artificial lens implant Bilateral cataracts 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 Brain bleed CVA (cerebral vascular accident) Dementia Depression DM2 (diabetes mellitus, type 2) Gastrostomy tube in place HLD (hyperlipidemia) HTN (hypertension) Incontinence Skin lesion lt nose Subarachnoid hemorrhage Subdural hematoma TBI (traumatic brain injury) Surgical History Surgical History (Updated 12/19/20 @ 15:16 by Bhavani Florez NP) Angle recession of both eyes History of appendectomy 1953 History of bilateral cataract extraction 2006 History of hysterectomy History of tonsillectomy S/P ureteral stent placement LEARNING SUPPORT ASSISTANT (ventriculoperitoneal) shunt status Family History Family History Mother Dementia Father No problems noted. Social History Social History (Updated 12/19/20 @ 15:30 by Bhavani Florez NP) Social History: Ms. Chamberlain is a resident of [facility]. Her daughter Lucille is her surrogate decision maker. She is a DNR. According to her face sheet she is . she is retired. Smoking status: Former smoker Tobacco type: cigarettes Additional smoking assessment comments: Quit smoking years ago Alcohol intake: never Substance use: unknown Gender identity (if verbalized by the patient): Female Spiritual care concerns: No Agree to blood products: Yes Exam Narrative: Exam Narrative: GENERAL: Chronically ill-appearing, well-nourished, and in no acute distress. HEAD: Normocephalic, atraumatic. ENT: Mucous membranes moist. CHEST: Clear to auscultation. No respiratory distress. HEART: Regular rate and rhythm. Normal peripheral pulses. ABDOMEN: Soft, nontender, G-tube site left upper abdomen without irritation to the site or gastric contents using out. EXTREMITIES: Moves upper extremities well and localizes to pain. SKIN: Warm, dry, no rash. NEURO: Awake and alert, localizes pain. Course Reevaluation(s) Reevaluation #1: Discussed with Dr. Barcenas GI on-call. Recommends admission for definitive placement of G-tube in the morning. Date: 01/08/21 Time: 04:17 Reevaluation #2: Accepted by hospitalist. Date: 01/08/21 Time: 04:23 Vital Signs Vital signs: Vital Signs Temperature 97.4 F L 01/08/21 02:57 Pulse Rate 83 01/08/21 02:57 Respiratory Rate 18 01/08/21 02:57 Blood Pressure 146/69 H 01/08/21 02:57 Pulse Oximetry 100 01/08/21 02:57 Temperature 97.4 F L 01/08/21 02:57 Pulse Rate 83 01/08/21 02:57 Respiratory Rate 18 01/08/21 02:57 Blood Pressure 146/69 H 01/08/21 02:57 Pulse Ox
[2021-01-08 04:29] LABS: Basophils Absolute Auto 0.1 K/mm3 (0.0-0.1); Basophils Percent Auto 0.5 % (0.2-1.2); Eosinophils Absolute Auto 0.6 K/mm3 (0-0.3); Eosinophils Percent Auto 5.8 % (0-4.4); Hematocrit 44.5 % (37.0-47.0); Hemoglobin 13.8 g/dL (12.0-15.0); Immature Granulocyte Absolute 0.04 K/mm3 (0.00-0.031); Immature Granulocyte Percent A 0.4 % (0-0.5); Lymphocytes Percent Auto 30.4 % (18.3-44.2); Mean Corpuscular Volume 90.3 fl (80-100); Mean Platelet Volume 9.9 fl (7.4-10.4); Monocytes Absolute Auto 0.8 K/mm3 (0.1-0.6); Neutrophils Absolute Auto 5.2 K/mm3 (1.3-6.7); Neutrophils Percent Auto 54.9 % (45.5-73.1); Platelet Count Result 395 k/mm3 (150-375); Red Blood Count 4.93 M/mm3 (4.2-5.4); Red Cell Distribution Width 13.7 % (11.5-14.5); White Blood Count 9.5 K/mm3 (4.5-10.0)
[2021-01-08 04:40] LABS: Anion Gap 7 mmol/L (8-16); Blood Urea Nitrogen 26 mg/dL (7-17); Calcium 9.5 mg/dL (8.4-10.2); Carbon Dioxide 29 mmol/L (22-30); Chloride 106 mmol/L (98-107); Estimated CRCL calculation 59 ml/min; Estimated Glomerular Filt Rate > 60; Glucose 101 mg/dL (65-105); Potassium 4.7 mmol/L (3.4-5.0); Sodium 142 mmol/L (137-145)
--- NOTE | 2021-01-08 05:36 | ADMGEN ---
This patient, Citlaly Joshua, was admitted to Medical Room 346-01. Patient/family oriented to hospital policies and general routines including ID bracelet, bed and alarms, visiting hours, pain management, procedures, bathroom and other care routines, personal items, smoking policy, room service/diet, and visiting hours. Information on how to activate the Rapid Response Team has been discussed. Patient/Family are encouraged to report perceived risks to care and to ask questions if they do not understand what they are told or what they should do.
[2021-01-08] MEDS: SODIUM CHLORIDE 0.9% IV 1,000 ML 100 ML IV CONT (05:37)
--- NOTE | 2021-01-08 08:14 | WPDANESEPP ---
Anes - Eval Pre Procedure Procedure: EGD with PEG placement Date/Time: 01/08/21 08:14 Surgeon: Narinder Preop Diagnosis: dislodgement of G tube Pre Op Diagnosis: g-tube complication Patient Data Age: 80 Gender: F Height: 5 ft 2 in Weight: 77 kg Last Vital Signs Temp 36.6 C 01/08/21 06:49 Pulse 74 01/08/21 06:49 Resp 14 01/08/21 06:49 BP 157/77 H 01/08/21 06:49 Pulse Ox 98 01/08/21 06:49 Allergies Allergy/AdvReac Type Severity Reaction Status Date / Time No Known Allergies Allergy Verified 01/08/21 05:36 Home Medications Medication Instructions Recorded Confirmed Type atorvastatin 80 mg FEEDING TUBE DAILY 01/08/20 01/08/21 History escitalopram oxalate 10 mg FEEDING TUBE DAILY 01/08/20 01/08/21 History multivitamin with minerals 15 ml FEEDING TUBE DAILY 01/09/20 01/08/21 History Xifaxan 550 mg FEEDING TUBE BID 08/18/20 01/08/21 History omeprazole 20 mg FEEDING TUBE DAILY 08/18/20 01/08/21 History guaifenesin 300 mg PO Q4H PRN 11/01/20 01/08/21 History Lantus U-100 Insulin 12 unit SUBCUT QAM #10 ml 11/09/20 01/08/21 Rx amlodipine [Norvasc] 5 mg FEEDING TUBE QAM #30 tablet 11/09/20 01/08/21 Rx sodium chloride [Saline Mist] 1 spray INTRANASAL Q6H PRN #1 spray 11/09/20 01/08/21 Rx acetaminophen 650 mg PO Q4H PRN 01/08/21 01/08/21 History bisacodyl 10 mg RECTAL DAILY PRN 01/08/21 01/08/21 History furosemide 40 mg FEEDING TUBE DAILY 01/08/21 01/08/21 History Laboratory Tests 01/08/21 01/08/21 04:19 04:19 WBC 9.5 K/mm3 K/mm3 (4.5-10.0) RBC 4.93 M/mm3 M/mm3 (4.2-5.4) Hgb 13.8 g/dL g/dL (12.0-15.0) Hct 44.5 % % (37.0-47.0) MCV 90.3 fl fl (80-100) MCH 28.0 pg pg (26-34) MCHC 31.0 g/dl L g/dl (32-36) RDW 13.7 % % (11.5-14.5) Plt Count 395 k/mm3 H D k/mm3 (150-375) MPV 9.9 fl fl (7.4-10.4) Immature Gran % (Auto) 0.4 % % (0-0.5) Neut % (Auto) 54.9 % % (45.5-73.1) Lymph % (Auto) 30.4 % % (18.3-44.2) [place] % (Auto) 8.0 % % (2.6-8.5) Eos % (Auto) 5.8 % H % (0-4.4) Baso % (Auto) 0.5 % % (0.2-1.2) Lymph # (Auto) 2.90 K/mm3 K/mm3 (0.9-3.2) [place] # (Auto) 0.8 K/mm3 H K/mm3 (0.1-0.6) Eos # (Auto) 0.6 K/mm3 H K/mm3 (0-0.3) Baso # (Auto) 0.1 K/mm3 K/mm3 (0.0-0.1) Abs Immat Gran (auto) 0.04 K/mm3 H K/mm3 (0.00-0.031) Absolute Neuts (auto) 5.2 K/mm3 K/mm3 (1.3-6.7) Absolute Nucleated RBC 0.0 K/mm3 K/mm3 (0.0-0.012) Nucleated RBC % 0.0 % % (0.0-0.2) Sodium 142 mmol/L mmol/L (137-145) Potassium 4.7 mmol/L mmol/L (3.4-5.0) Chloride 106 mmol/L mmol/L (98-107) Carbon Dioxide 29 mmol/L mmol/L (22-30) Anion Gap 7 mmol/L L mmol/L (8-16) BUN 26 mg/dL H mg/dL (7-17) Creatinine 0.60 mg/dL L mg/dL (0.7-1.0) Estim Creat Clear Calc 59 ml/min ml/min Estimated GFR > 60 (59 - ) Glucose 101 mg/dL mg/dL (65-105) Calcium 9.5 mg/dL mg/dL (8.4-10.2) Patient hx anesthesia problems: none Family hx anesthesia problems: none PMFSH Past Medical History Medical History Abnormal gag reflex Partial paralysis Aspiration pneumonia Bilateral artificial lens implant Bilateral cataracts Brain aneurysm With FACILITIES COORDINATOR shunt in place Brain bleed CVA (cerebral vascular accident) Dementia Depression DM2 (diabetes mellitus, type 2) Gastrostomy tube in place HLD (hyperlipidemia) HTN (hypertension) Incontinence Skin lesion lt nose Subarachnoid hemorrhage Subdural hematoma TBI (traumatic brain injury) Surgical History Surgical History Angle recession of both eyes History of appendectomy 1953 History of bilateral cataract extraction 2006 History of hysterectomy History of tonsillectomy S/P ureteral stent placement FACILITIES COORDINATOR (ventr
--- NOTE | 2021-01-08 09:17 | SUR.PREOP ---
PT TO ENDOSCOPY LAB AT 0913, PT NONVERBAL BUT RESPONDS TO VERBAL, CONSENT ON CHART WITH PERMISSION FROM PT'S DAUGHTER.
[2021-01-08] MEDS: LACTATED RINGERS 1,000 ML 150 ML IV CONT (09:18)
--- NOTE | 2021-01-08 09:23 | P.PNAN_ITS ---
Anes - Eval Final PreProcedure Day of Procedure 01/08/21 09:23 Patient weight: obese Heart: regular rate and rhythm Lungs: clear to auscultation Airway: Mallampati scale class II Neurological: other (non verbal) Last oral intake: >/= 8 hours ASA classification: IV Emergent: yes Anesthetic plan: proceed Anesthesia type and monitoring: general GIVS and standard monitoring Informed Consent: The patient's anesthetic plan and its attendant risks and b enefits were discussed with the patient/family/POA. Questions were solicited and answers provided to the satisfaction of the patient/family/POA.
--- NOTE | 2021-01-08 09:24 | WPDGICN ---
Assessment and Plan Assessment and plan (1) Gastrostomy complication: Code(s): K94.20 - Gastrostomy complication, unspecified Status: Acute Assessment and Plan: EGD with possible biopsy or dilatation or cautery. GI Consult Note Consult date/time: 01/08/21 09:24 HPI: Citlaly Joshua is a 80 year old female With a chronic indwelling percutaneous gastrostomy feeding tube. It came out sometime yesterday. She presented to the emergency room where they were unable to reinsert it. 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 Brain bleed CVA (cerebral vascular accident) Dementia Depression DM2 (diabetes mellitus, type 2) Gastrostomy tube in place HLD (hyperlipidemia) HTN (hypertension) Incontinence Skin lesion lt nose Subarachnoid hemorrhage Subdural hematoma TBI (traumatic brain injury) Surgical History Surgical History Angle recession of both eyes History of appendectomy 1953 History of bilateral cataract extraction 2006 History of hysterectomy History of tonsillectomy S/P ureteral stent placement HIM SPECIALIST (ventriculoperitoneal) shunt status Family History Family History Mother Dementia Father No problems noted. Social History Social History Social History: Ms. Chamberlain is a resident of [facility]. Her daughter Lucille is her surrogate decision maker. She is a DNR. According to her face sheet she is . she is retired. Smoking status: Former smoker Tobacco type: cigarettes Additional smoking assessment comments: unknown when pt quit Alcohol intake: never Substance use: unknown Gender identity (if verbalized by the patient): Female Spiritual care concerns: No Agree to blood products: Yes Meds Home Medications and Allergies Home Medications Medication Instructions Recorded Confirmed Type atorvastatin 80 mg FEEDING TUBE DAILY 01/08/20 01/08/21 History escitalopram oxalate 10 mg FEEDING TUBE DAILY 01/08/20 01/08/21 History multivitamin with minerals 15 ml FEEDING TUBE DAILY 01/09/20 01/08/21 History Xifaxan 550 mg FEEDING TUBE BID 08/18/20 01/08/21 History omeprazole 20 mg FEEDING TUBE DAILY 08/18/20 01/08/21 History guaifenesin 300 mg PO Q4H PRN 11/01/20 01/08/21 History Lantus U-100 Insulin 12 unit SUBCUT QAM #10 ml 11/09/20 01/08/21 Rx amlodipine [Norvasc] 5 mg FEEDING TUBE QAM #30 tablet 11/09/20 01/08/21 Rx sodium chloride [Saline Mist] 1 spray INTRANASAL Q6H PRN #1 spray 11/09/20 01/08/21 Rx acetaminophen 650 mg PO Q4H PRN 01/08/21 01/08/21 History bisacodyl 10 mg RECTAL DAILY PRN 01/08/21 01/08/21 History furosemide 40 mg FEEDING TUBE DAILY 01/08/21 01/08/21 History Allergies Allergy/AdvReac Type Severity Reaction Status Date / Time No Known Allergies Allergy Verified 01/08/21 05:36 Vital Signs Vital Signs - 24 hr 01/08/21 02:57 01/08/21 04:52 01/08/21 06:49 Temperature 36.3 C L 36.6 C Pulse Rate 83 87 74 Respiratory Rate 18 18 14 Blood Pressure 146/69 H 157/76 H 157/77 H Pulse Oximetry 100 95 98 01/08/21 09:15 Temperature Pulse Rate 89 Respiratory Rate 20 Blood Pressure 145/69 H Pulse Oximetry 99 Exam Const: General: alert Orientation/consciousness: patient oriented x3 and confusion Resp: Auscultation: clear to auscultation bilaterally Cardio: Rhythm: regular rhythm GI: GI Palp: Yes Soft to palpation and No Tenderness to palpation present (GI) Neuro: General: patient oriented x3 Results Labs CBC & Chem 7: 01/08/21
--- NOTE | 2021-01-08 10:03 | SUR.PHASEII ---
20FR G TUBE PLACED, 5 AT FLANGE, NO DRAINAGE AT SITE
[2021-01-08] MEDS: MULTIVIT W/ IRON, MINERALS 15 ML LIQUID (*BKC) FEED TUBE (10:40)
[2021-01-08] MEDS: LANSOPRAZOLE ORAL SUSP 30 MG/10 ML ORAL.SUSP FEED TUBE (10:40)
[2021-01-08] MEDS: ESCITALOPRAM OXALATE 10 MG TABLET FEED TUBE (10:40)
[2021-01-08] MEDS: amLODIPine BESYLATE 5 MG TABLET FEED TUBE (10:40)
[2021-01-08] MEDS: FUROSEMIDE 40 MG TABLET FEED TUBE (10:40)
[2021-01-08] MEDS: ATORVASTATIN 40 MG TABLET 80 MG FEED TUBE (10:40)
[2021-01-08] MEDS: rifAXIMin 550 MG TABLET FEED TUBE (10:41)
[2021-01-08] MEDS: INSULIN GLARGINE (*BKC) 100 UNITS/ML 12 UNITS SUB-Q (10:44)
--- NOTE | 2021-01-08 14:30 | PM.SD2 ---
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 Unknown when it came out. Patient typically receives Jevity feeds through this. Patient is nonverbal. It appears this is a longstanding feeding tube as there is a note from 1 year ago that shows it was already in place. 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 Brain bleed CVA (cerebral vascular accident) Dementia Depression DM2 (diabetes mellitus, type 2) Gastrostomy tube in place HLD (hyperlipidemia) HTN (hypertension) Incontinence Skin lesion lt nose Subarachnoid hemorrhage Subdural hematoma TBI (traumatic brain injury) Surgical History Surgical History Angle recession of both eyes History of appendectomy 1953 History of bilateral cataract extraction 2006 History of hysterectomy History of tonsillectomy S/P ureteral stent placement MUSIC ENGRAVER (ventriculoperitoneal) shunt status Family History Family History Mother Dementia Father No problems noted. Social History Social History Social History: Ms. Chamberlain is a resident of [facility]. Her daughter Lucille is her surrogate decision maker. She is a DNR. According to her face sheet she is . she is retired. Smoking status: Former smoker Tobacco type: cigarettes Additional smoking assessment comments: unknown when pt quit Alcohol intake: never Substance use: unknown Gender identity (if verbalized by the patient): Female Spiritual care concerns: No Agree to blood products: Yes Same Day Admit/Disch: Med Pre-admit Medications Home Medications Medication Instructions Recorded Confirmed Type atorvastatin 80 mg FEEDING TUBE DAILY 01/08/20 01/08/21 History escitalopram oxalate 10 mg FEEDING TUBE DAILY 01/08/20 01/08/21 History multivitamin with minerals 15 ml FEEDING TUBE DAILY 01/09/20 01/08/21 History Xifaxan 550 mg FEEDING TUBE BID 08/18/20 01/08/21 History omeprazole 20 mg FEEDING TUBE DAILY 08/18/20 01/08/21 History guaifenesin 300 mg PO Q4H PRN 11/01/20 01/08/21 History Lantus U-100 Insulin 12 unit SUBCUT QAM #10 ml 11/09/20 01/08/21 Rx amlodipine [Norvasc] 5 mg FEEDING TUBE QAM #30 tablet 11/09/20 01/08/21 Rx sodium chloride [Saline Mist] 1 spray INTRANASAL Q6H PRN #1 spray 11/09/20 01/08/21 Rx acetaminophen 650 mg PO Q4H PRN 01/08/21 01/08/21 History bisacodyl 10 mg RECTAL DAILY PRN 01/08/21 01/08/21 History furosemide 40 mg FEEDING TUBE DAILY 01/08/21 01/08/21 History Exam Narrative: Exam Narrative: GENERAL: Chronically ill-appearing, well-nourished, and in no acute distress. opens her eyes spontaneously, non communicative at baseline. HEAD: Normocephalic, atraumatic. ENT: Mucous membranes moist. CHEST: Clear to auscultation. No respiratory distress. HEART: Regular rate and rhythm. Normal peripheral pulses. ABDOMEN: Soft, nontender, G-tube site left upper abdomen without irritation to the site or gastric contents using out. EXTREMITIES: Moves upper extremities well and localizes to pain. SKIN: Warm, dry, no rash. NEURO: Awake and alert, localizes pain. DS: Data Data Completed and Pending Labs on day of discharge: Labs from last 24 hours 01/08/21 01/08/21 04:19 04:19 WBC 9.5 RBC 4.93 Hgb 13.8 Hct 44.5 MCV 90.3 MCH 28.0 MCHC 31.0 L RDW 13.7 Plt Count 395 H D MPV 9.9 Immature Gran % (Auto) 0.4 Neut % (Auto) 54.9 Lymph % (Auto) 30.4 Ness % (Auto) 8.0
== END 2021-01-08 17:53 ==
LOC: ANHED 04:22 → ANH3MED 05:00
PROVIDERS: Internal Medicine Gastroenterology; Admitting Provider Internal Medicine; Emergency Provider Emergency Medicine; PCP Family Medicine; Visit Provider Internal Medicine
PROC: 0DH63UZ Insertion of Feeding Device into Stomach, Percutaneous Approach (ICD-10-PCS; CPT 43246; principal; 2021-01-08 09:00)
DX: K94.20 Gastrostomy complication, unspecified (principal); T85.528A Displacement of other gastrointestinal prosthetic devices, implants and grafts, initial encounter; E11.9 Type 2 diabetes mellitus without complications; E78.5 Hyperlipidemia, unspecified; I10 Essential (primary) hypertension; Z66 Do not resuscitate; Z87.891 Personal history of nicotine dependence; Z79.4 Long term (current) use of insulin
CPT/HCPCS: 36415; 43246; 49450; 80048; 85025; 96361; 96365; 99285; A9270; G0378; J0690; J1815; J2704; J7030; J7120